=== PATIENT | male | born 1935 | race Caucasian/White ===

== ENCOUNTER → 2016-05-06 | Outpatient (CLI) | payer OTHER ==
[~2016-05-06] VITALS: Ht 175.3 cm; Wt 89.3 kg
[~2016-05-06] MED LIST: GLUCTAB PO; INSULIN HUMAN REGULAR 1,000 UNITS/10 ML VIAL SQ PRN; LACTATED RINGER'S 1000 ML IV SCH; LISI10TA3 PO; METH5TAB4 PO; METOPROLOL TARTRATE 25 MG TAB PO PRN; PRAV10TA PO; PROP20TA3 PO; PROPOFOL 200 MG/20 ML AMP IV ONE; PROT40TA PO; ROBA500T PO; SODIUM CHLORID 0.9% 500 ML IV SCH; TANDCAP PO
[2016-05-06 10:41] VITALS: BP 146/65; PULSE 52; RESP 20; TEMP 97.6; O2SAT 99
[2016-05-06 13:05] VITALS: TEMP 97.9
[2016-05-06 13:35] VITALS: BP 114/62; PULSE 55; RESP 16; O2SAT 94
== END ==
LOC: HEND 09:30
PROVIDERS: ATTEND Internal Medicine Gastroenterology
DX: I85.00 Esophageal varices without bleeding (principal); I86.4 Gastric varices; K31.9 Disease of stomach and duodenum, unspecified; K74.69 Other cirrhosis of liver; I10 Essential (primary) hypertension
CPT/HCPCS: 00740; 43244; J7120

== ENCOUNTER 2016-06-17 16:23 | Emergency (ER) | payer OTHER ==
[~2016-06-17] VITALS: Ht 175.3 cm; Wt 87.0 kg
[~2016-06-17 16:23] MED LIST changes: -INSULIN HUMAN REGULAR 1,000 UNITS/10 ML VIAL SQ PRN; -LACTATED RINGER'S 1000 ML IV SCH; -LISI10TA3 PO; -METOPROLOL TARTRATE 25 MG TAB PO PRN; -PROPOFOL 200 MG/20 ML AMP IV ONE; -ROBA500T PO; -SODIUM CHLORID 0.9% 500 ML IV SCH
[2016-06-17 16:25] VITALS: BP 139/76; PULSE 93; RESP 17; TEMP 98.1; O2SAT 97
[2016-06-17] MEDS ORDERED: ROBA500T PO (18:26)
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
[2016-08-13] MEDS ORDERED: LISI10TA3 PO (15:00)
== END 2016-06-17 18:40 | disposition home or self-care (01) ==
LOC: NEPB 16:23
DX: S39.012A Strain of muscle, fascia and tendon of lower back, initial encounter (principal); I10 Essential (primary) hypertension; E11.9 Type 2 diabetes mellitus without complications; V43.52XA Car driver injured in collision with other type car in traffic accident, initial encounter; Y93.9 Activity, unspecified; Y92.410 Unspecified street and highway as the place of occurrence of the external cause
CPT/HCPCS: 99282

== ENCOUNTER 2016-07-20 06:47 | Emergency (ER) | payer OTHER ==
[~2016-07-20] VITALS: Ht 175.3 cm; Wt 86.0 kg
[~2016-07-20 06:47] MED LIST changes: +ROBA500T PO
[2016-07-20 06:49] VITALS: BP 172/82; PULSE 91; RESP 16; TEMP 97.7; O2SAT 96
--- NOTE | 2016-07-20 07:48 | PD ---
HPI Chief Complaint: Abnormal Results Time Seen by Provider: 07:16 Travel History International Travel<30 days: No Contact w/Intl Traveler<30days: No Traveled to known affect area: No History of Present Illness HPI The patient 80 years old. He had routine blood work performed revealing a platelet count of 65,000. He was advised to come to the ER right away. He has a history of thrombocytopenia and states that 65 is about normal for him. In the past year or so he had an episode of esophageal varices treated at an outside hospital. He has follow-up with Dr. Miramontes of gastroenterology who has since performed endoscopy multiple times evidently performing a bandlike nature. He is due for follow-up appointment in 1 months. He's had no bleeding that he can appreciate or rash or skin change. He states he feels "great." He does complain about chronic left hand issues but otherwise has no complaints and is unsure exactly why he is to be here other than the fact that his [employer] on-call physician advised him to come right away. The physician who advised him to come is not familiar with the patient. PFSH Past Medical History Cancer: No Cardiovascular Problems: No Diabetes: Yes Patient Takes Glucophage: Yes Diminished Hearing: No Endocrine: Yes Gastrointestinal Disorders: Yes (ERODED ESOPHAGUS) Genitourinary: No Hepatitis: No Hiatal Hernia: No Hypertension: Yes (on med) Immune Disorder: No Medical other: Yes (esophageal varacies; NA cirrhosis; hx of dysplastic colon polyp) Musculoskeletal: Yes (ARTHRITIS) Neurologic: No Psychiatric: No Reproductive: No Respiratory: No Thyroid Disease: Yes (on med) Past Surgical History Abdominal Surgery: No AICD: No Cardiac Surgery: No Ear Surgery: No Endocrine Surgery: No Genitourinary Surgery: No Joint Replacement: Yes (BILATERAL KNEES) Oral Surgery: Yes (for dentures) Pacemaker: No Thoracic Surgery: No Other Surgery: Yes Social History Alcohol Use: No Tobacco Use: No (FORMER ) Substance Use: No Allergies-Medications (Allergen,Severity, Reaction): Coded Allergies: Ibuprofen (Verified Allergy, Severe, 06/17/16) cannot take due to liver Morphine (Unverified Allergy, Severe, Nausea/Vomiting, 06/17/16) Aleve (Verified Allergy, Unknown, 06/17/16) cant take due to liver Reported Meds & Prescriptions Reported Meds & Active Scripts Active Reported Tandem 162-115.2 mg (Ferrous Fumarate-Iron Polysacc) 1 Cap Cap 105 Mg PO DAILY Methimazole 5 Mg Tab 10 Mg PO 2XWEEK Pravastatin 10 Mg Tab 10 Mg PO DAILY Protonix (Pantoprazole Sodium) 40 Mg Tab 40 Mg PO BID Glucophage XR (Metformin HCl) 500 Mg Josemanuel 500 Mg PO BID Review of Systems Except as stated in HPI: all other systems reviewed are Neg Physical Exam Narrative GENERAL: 80-year-old male well-nourished well-developed no acute distress pleasant SKIN: Warm and dry. No petechiae about the lower extremities or rash otherwise. HEAD: Atraumatic. Normocephalic. EYES: Pupils equal and round. No scleral icterus. No injection or drainage. ENT: No nasal bleeding or discharge. Mucous membranes pink and moist. NECK: Trachea midline. No JVD. CARDIOVASCULAR: Regular rate and rhythm. RESPIRATORY: No accessory muscle use. Clear to auscultation. Breath sounds equal bilaterally. GASTROINTESTINAL: Abdomen soft, non-tender, nondistended. Hepatic and splenic margins not palpable. MUSCULOSKELETAL: Extremities without clubbing, cyanosis, or edema. No obvious deformities. NEUROLOGICAL: Awake and alert. No obvious cranial nerve deficits. Motor grossly within normal limits. Five out of 5 muscle strength in the arms and legs. Normal speech. PSYCHIATRIC: Appropriate mood and affect; insight and judgment normal. Data Data Last Documented VS Vital Signs Date Time Temp Pulse Resp B/P Pulse Ox O2 Delivery O2 Flow Rate FiO2 07/20/16 07:09 17 96 Room Air 07/20/16 06:49 97.7 91 172/82 Vital signs reviewed Orders Complete Blood Count With Diff (07/20/16 07:24) Labs Laboratory Tests Test 07/20/16 07:30 White Blood Count 6.3 TH/MM3 Red Blood Count 4.38 MIL/MM3 Hemoglobin 14.1 GM/DL Hematocrit 40.3 % Mean Corpuscular Volume 91.9 FL Mean Corpuscular Hemoglobin 32.2 PG Mean Corpuscular Hemoglobin 35.1 % Concent Red Cell Distribution Width 16.1 % Platelet Count 85 TH/MM3 Mean Platelet Volume 9.8 FL Neutrophils (%) (Auto) 60.3 % Lymphocytes (%) (Auto) 27.5 % Monocytes (%) (Auto) 7.6 % Eosinophils (%) (Auto) 3.9 % Basophils (%) (Auto) 0.7 % Neutrophils # (Auto) 3.8 TH/MM3 Lymphocytes # (Auto) 1.7 TH/MM3 Monocytes # (Auto) 0.5 TH/MM3 Eosinophils # (Auto) 0.2 TH/MM3 Basophils # (Auto) 0.0 TH/MM3 CBC Comment AUTO DIFF MDM Medical Decision Making Medical Screen Exam Complete: Yes Emergency Medical Condition: Yes Medical Record Reviewed: Yes Differential Diagnosis Thrombocytopenia, ITP, TTP Narrative Course Platelet count is 85,000 which is the norm for this patient. He is okay for discharge. Follow up with PMD on Friday. Diagnosis Primary Impression: Thrombocytopenia Referrals: Primary Care Physician 2 days Additional Instructions: You have a choice when it comes to health care, and we are glad that you chose [facility]. Hopefully, we have met your expectations on today's visit. You are welcome to return to [facility] at any time, as we are committed to meeting the health care needs of our community. Med/Other Pt SpecificInfo: No Change to Meds Disposition: 01 DISCHARGE HOME Condition: Finesse Segura MD Jul 20, 2016 07:48
[2016-07-20 07:51] LABS: AUTOMATED NEUTROPHIL # 3.8 TH/MM3 (1.8-7.7); BASOPHIL % 0.7 % (0.0-2.0); EOSINOPHIL # 0.2 TH/MM3 (0-0.4); EOSINOPHIL % 3.9 % (0.0-4.0); HEMATOCRIT 40.3 % (39.0-51.0); LYMPH % 27.5 % (9.0-44.0); LYMPHOCYTE # 1.7 TH/MM3 (1.0-4.8); MEAN CELL VOLUME 91.9 FL (80.0-100.0); MEAN CORPUSCULAR HEMOGLOBIN 32.2 PG (27.0-34.0); MEAN CORPUSCULAR HGB CONC 35.1 % (32.0-36.0); MONO % 7.6 % (0.0-8.0); NEUT % 60.3 % (16.0-70.0); PLATELET COUNT 85 TH/MM3 (150-450); RED BLOOD COUNT 4.38 MIL/MM3 (4.50-5.90); RED CELL DISTRIBUTION WIDTH 16.1 % (11.6-17.2); WHITE BLOOD COUNT 6.3 TH/MM3 (4.0-11.0)
[2016-07-20 07:53] LABS: HEMO FLAGS AUTO DIFF
[2016-07-20 08:23] LABS: PLATELET ESTIMATE SMEAR LOW (NORMAL); PLATELET MORPHOLOGY NORMAL (NORMAL); SCAN/DIFF AUTO DIFF CONFIRMED
[2016-08-13] MEDS ORDERED: LISI10TA3 PO (15:00)
== END 2016-07-20 08:42 | disposition home or self-care (01) ==
LOC: NEPC 06:47
DX: D69.6 Thrombocytopenia, unspecified (principal); E11.9 Type 2 diabetes mellitus without complications; I10 Essential (primary) hypertension; Z96.653 Presence of artificial knee joint, bilateral
CPT/HCPCS: 85025; 99283

== ENCOUNTER → 2016-08-14 | Outpatient (CLI) | payer OTHER ==
[~2016-08-14] VITALS: Ht 172.7 cm; Wt 87.0 kg
[~2016-08-14] MED LIST changes: +CHLORHEXIDINE GLUCONATE 2 % 1 PACK (2 CLOTHS) TOPICAL PRN; +INSULIN HUMAN REGULAR 1,000 UNITS/10 ML VIAL SQ PRN; +LACTATED RINGER'S 1000 ML IV PRN; +LISI10TA3 PO; +METOPROLOL TARTRATE 25 MG TAB PO PRN; +POVIDONE IODINE 5% (ANTISEPSIS KIT) 4 APPLICATIONS EACH NARE PRN; -PROP20TA3 PO; +PROPOFOL 200 MG/20 ML AMP IV ONE; -ROBA500T PO; +SODIUM CHLORID 0.9% 500 ML IV PRN
[2016-08-14 10:54] VITALS: BP 140/63; PULSE 70; RESP 20; TEMP 97.5; O2SAT 96
[2016-08-14 12:10] VITALS: TEMP 98
--- NOTE | 2016-08-14 12:16 | GIPROC ---
[facility] [address] [facility]. [facility], [address] EGD PROCEDURE REPORT EXAM DATE: 08/14/2016 PATIENT NAME: Robby Khan MR #: [id number] BIRTHDATE: 1935 ATTENDING: Lex Lee MD ORDER #: [id number] CERTIFIED PEDORTHOTIST: Yosi Lim Hogan, Darren, and Kendy Seo STATUS: outpatient INDICATIONS: The patient is a 80 yr old male here for an EGD due to therapeutic procedure and surveillance of esophageal varices PROCEDURE PERFORMED: EGD w/ band ligation of varices MEDICATIONS: None and Per Anesthesia. TOPICAL ANESTHETIC: none CONSENT: The patient understands the risks and benefits of the procedure and understands that these risks include, but are not limited to: sedation, allergic reaction, infection, perforation and/or bleeding. Alternative means of evaluation and treatment include, among others: physical exam, x-rays, and/or surgical intervention. The patient elects to proceed with this endoscopic procedure. medical equipment was checked for proper function. Hand hygiene and appropriate measures for infection prevention was taken. After the risks, benefits and alternatives of the procedure were thoroughly explained, Informed consent was verified, confirmed and timeout was successfully executed by the treatment team. The patient was anesthetized with topical anesthesia and the Pentax [id number] endoscope was introduced through the mouth and advanced to the second portion of the duodenum. Retroflexed views revealed varices The gastroscope was then slowly withdrawn and removed. ESOPHAGUS: There was a single medium sized varix in the distal esophagus. There was evidence of a louie spot sign and prior scarring. Band ligation x 1. STOMACH: There were small non bleeding gastric varices in the cardia. Mild portal hypertensive gastropathy was found. DUODENUM: The duodenal mucosa appeared normal. ADVERSE EVENTS: There were no complications. IMPRESSIONS: Retroflexed views revealed varices RECOMMENDATIONS: Soft diet today, advance tomorrow as tolerated. PATIENT CONDITION: stable DISPOSITION: Home REPEAT EXAM: Return 6 months EGD Lex Lee MD eSigned: Lex Lee MD 08/14/2016 12:15 PM cc: Jaime Hay M.D. PATIENT NAME: Robby Khan MR#: [id number]
[2016-08-14 12:30] VITALS: BP 122/62; PULSE 69; RESP 18; O2SAT 95
== END ==
LOC: HEND 09:42
PROVIDERS: ATTEND Internal Medicine Gastroenterology
DX: I85.10 Secondary esophageal varices without bleeding (principal); K74.60 Unspecified cirrhosis of liver; K76.6 Portal hypertension; K31.89 Other diseases of stomach and duodenum

== ENCOUNTER 2017-09-08 07:59 | Inpatient (IN) | payer OTHER, MEDICARE ==
[2017-09-08] VITALS (8 sets, daily range): BP systolic 134–168; BP diastolic 57–78; PULSE 90–95; RESP 16–20; TEMP 98.5–100.3; O2SAT 96–100
[~2017-09-08] VITALS: Ht 172.7 cm; Wt 100.0 kg
[~2017-09-08 07:59] MED LIST changes: -CHLORHEXIDINE GLUCONATE 2 % 1 PACK (2 CLOTHS) TOPICAL PRN; -GLUCTAB PO; -INSULIN HUMAN REGULAR 1,000 UNITS/10 ML VIAL SQ PRN; -LACTATED RINGER'S 1000 ML IV PRN; -METH5TAB4 PO; +METHI10; -METOPROLOL TARTRATE 25 MG TAB PO PRN; +PANT40TA3; -POVIDONE IODINE 5% (ANTISEPSIS KIT) 4 APPLICATIONS EACH NARE PRN; -PROPOFOL 200 MG/20 ML AMP IV ONE; -PROT40TA PO; -SODIUM CHLORID 0.9% 500 ML IV PRN
--- NOTE | 2017-09-08 08:26 | PD ---
HPI Chief Complaint: Edema Time Seen by Provider: 08:10 Travel History International Travel<30 days: No Contact w/Intl Traveler<30days: No Traveled to known affect area: No History of Present Illness HPI Patient presents to the emergency department with edema. 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 Chicas. States that the swelling to bilateral lower extremities and abdomen began 2 days ago. Never had these symptoms before. He does take Lasix 20 mg a day. He denies fever, diarrhea, but reports chills, nausea, post tussive phlegm, cough, abdominal pain, shortness of breath, bilateral lower extremity edema. He states normal urine output, he is passing flatus, and denies chest pain. He reports having constipation which is resolving. PFSH Past Medical History Cancer: No Cardiovascular Problems: No Diabetes: Yes (TYPE 2) Diminished Hearing: No Endocrine: Yes Gastrointestinal Disorders: Yes (ERODED ESOPHAGUS) Genitourinary: No Hepatitis: No Hiatal Hernia: No Hypertension: Yes (on med) Immune Disorder: No Musculoskeletal: Yes (ARTHRITIS) Neurologic: No Psychiatric: No Reproductive: No Respiratory: Yes Thyroid Disease: Yes Past Surgical History Abdominal Surgery: No AICD: No Cardiac Surgery: No Ear Surgery: No Endocrine Surgery: No Eye Surgery: Yes (CATARACTS REMOVED BILAT) Genitourinary Surgery: No Joint Replacement: Yes (BILATERAL KNEES) Oral Surgery: Yes (for dentures) Pacemaker: No Thoracic Surgery: No Other Surgery: Yes Social History Alcohol Use: No Tobacco Use: No (FORMER ) Substance Use: No Allergies-Medications (Allergen,Severity, Reaction): Coded Allergies: ibuprofen (Unverified Allergy, Severe, 01/28/17) cannot take due to liver morphine (Unverified Allergy, Severe, Nausea/Vomiting, 01/28/17) naproxen (Unverified Allergy, Unknown, 01/28/17) cant take due to liver Reported Meds & Prescriptions Reported Meds & Active Scripts Active Reported Lasix (Furosemide) 20 Mg Tab 20 Mg PO DAILY Lisinopril 10 Mg Tab 10 Mg PO DAILY Pravastatin 10 Mg Tab 10 Mg PO DAILY Methimazole 10 Mg Tab Pantoprazole (Pantoprazole Sodium) 40 Mg Tab Tandem 162-115.2 mg (Ferrous Fumarate-Iron Polysacc) 1 Cap Cap 105 Mg PO DAILY Review of Systems Except as stated in HPI: all other systems reviewed are Neg Physical Exam Narrative GENERAL: No acute distress. SKIN: Focused skin assessment warm/dry. HEAD: Atraumatic. Normocephalic. EYES: Pupils equal and round. No scleral icterus. No injection or drainage. ENT: No nasal bleeding or discharge. Mucous membranes pink and moist. NECK: Trachea midline. No JVD. CARDIOVASCULAR: Regular rate and rhythm. No murmur appreciated. RESPIRATORY: No accessory muscle use. Clear to auscultation. Breath sounds equal bilaterally. GASTROINTESTINAL: Abdomen soft, non-tender, distended. MUSCULOSKELETAL: No obvious deformities. No clubbing. No cyanosis. Bilateral lower extremity edema with erythema. NEUROLOGICAL: Awake and alert. No obvious cranial nerve deficits. Motor grossly within normal limits. Normal speech. PSYCHIATRIC: Appropriate mood and affect; insight and judgment normal. Data Data Last Documented VS Vital Signs Date Time Temp Pulse Resp B/P (MAP) Pulse Ox O2 Delivery O2 Flow Rate FiO2 09/08/17 09:07 149/68 (95) 09/08/17 09:07 97 09/08/17 08:02 98.5 95 16 Orders Orders Complete Blood Count With Diff (09/08/17 08:16) Comprehensive Metabolic Panel (09/08/17 08:16) Lipase (09/08/17 08:16) Prothrombin Time / Inr (Pt) (09/08/17 08:16) Act Partial Throm Time (Ptt) (09/08/17 08:16) Urinalysis - C+S If Indicated (09/08/17 08:16) Iv Access Insert/Monitor (09/08/17 08:16) Ecg Monitoring (09/08/17 08:16) Oximetry (09/08/17 08:16) Sodium Chloride 0.9% Flush (Ns Flush) (09/08/17 08:30) Chest, Single Ap (09/08/17 08:16) B-Type Natriuretic Peptide (09/08/17 08:16) Furosemide Inj (Lasix Inj) (09/08/17 08:30) Blood Culture (09/08/17 08:20) Lactic Acid (09/08/17 08:20) Ct Abd/Pel W Iv Contrast(Rout) (09/08/17 08:20) Iohexol 350 Inj (Omnipaque 350 Inj) (09/08/17 09:29) Potassium Chloride (Kcl) (09/08/17 11:45) Vancomycin Inj (Vancomycin Inj) (09/08/17 11:45) Piperacil-Tazo 3.375 Gm Premix (Zosyn 3. (09/08/17 11:45) Us Guided Abd Paracentesis (09/08/17 ) Peritoneal Cell Count + Diff (09/08/17 12:31) Total Protein Peritoneal Fluid (09/08/17 12:31) Albumin, Peritoneal Fluid (09/08/17 12:31) Fluid Culture And Gram Stain (09/08/17 12:31) Admit To Inpatient (09/08/17 ) Vital Signs (Adult) GRICELDA.Q4H (09/08/17 12:32) Activity Oob With Assistance (09/08/17 12:32) Inpatient Certification (09/08/17 ) Admit Order (Ed Use Only) (09/08/17 12:33) Labs Laboratory Tests Test 09/08/17 08:20 09/08/17 08:30 White Blood Count 6.0 TH/MM3 Red Blood Count 4.03 MIL/MM3 Hemoglobin 13.2 GM/DL Hematocrit 37.0 % Mean Corpuscular Volume 91.8 FL Mean Corpuscular Hemoglobin 32.7 PG Mean Corpuscular Hemoglobin Concent 35.6 % Red Cell Distribution Width 17.3 % Platelet Count 131 TH/MM3 Mean Platelet Volume 8.0 FL Neutrophils (%) (Auto) 64.6 % Lymphocytes (%) (Auto) 18.3 % Monocytes (%) (Auto) 13.8 % Eosinophils (%) (Auto) 2.5 % Basophils (%) (Auto) 0.8 % Neutrophils # (Auto) 3.9 TH/MM3 Lymphocytes # (Auto) 1.1 TH/MM3 Monocytes # (Auto) 0.8 TH/MM3 Eosinophils # (Auto) 0.2 TH/MM3 Basophils # (Auto) 0.0 TH/MM3 CBC Comment DIFF FINAL Differential Comment Prothrombin Time 14.9 SEC Prothromb Time International Ratio 1.5 RATIO Activated Partial Thromboplast Time 30.3 SEC Blood Urea Nitrogen 18 MG/DL Creatinine 1.42 MG/DL Random Glucose 104 MG/DL Total Protein 6.8 GM/DL Albumin 2.8 GM/DL Calcium Level 8.3 MG/DL Alkaline Phosphatase 107 U/L Aspartate Amino Transf (AST/SGOT) 69 U/L Alanine Aminotransferase (ALT/SGPT) 42 U/L Total Bilirubin 4.7 MG/DL Sodium Level 138 MEQ/L Potassium Level 3.4 MEQ/L Chloride Level 103 MEQ/L Carbon Dioxide Level 25.7 MEQ/L Anion Gap 9 MEQ/L Estimat Glomerular Filtration Rate 48 ML/MIN B-Type Natriuretic Peptide 79 PG/ML Lipase 344 U/L Lactic Acid Level 2.9 mmol/L MDM Medical Decision Making Medical Screen Exam Complete: Yes Emergency Medical Condition: Yes Interpretation(s) Labs: Potassium decreased, creatinine and lactate and T bili and AST increased, platelets decreased Last Impressions Abdomen/Pelvis CT 09/08/17 0820 Signed Impressions: CONCLUSION: 1. Cirrhotic appearing liver with splenomegaly and diffuse ascites consistent with cirrhosis and portal hypertension. The liver is considerably smaller in si ze and previous dated 09/27/2014. The overall size of the spleen is similar. 2. There are numerous calcified stones within the gallbladder. 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 Chest X-Ray 09/08/17 0816 Signed Impressions: CONCLUSION: 1. No acute cardiopulmonary disease. Differential Diagnosis Kidney disease, liver disease, cellulitis, sepsis, Narrative Course Patient with a known history of cirrhosis presents with new onset bilateral lower extremity edema and abdominal distention. Patient placed on the shelter monitor, IV access obtained, and labs/CT scan ordered. 1234: Patient has been admitted. Admit MD requesting paracentesis, which is been ordered. He will follow-up on the results. Diagnosis Primary Impression: Hypokalemia Additional Impressions: Cellulitis Qualified Codes: L03.119 - Cellulitis of unspecified part of limb Ascites Qualified Codes: R18.8 - Other ascites Admitting Information Admitting Physician Requests: Admit Condition: Stable Cortney Killian MD Sep 08, 2017 08:26
[2017-09-08] MEDS ORDERED: FUROSEMIDE 20 MG/2 ML VIAL IV PUSH ONE (08:30)
[2017-09-08 08:46] LABS: AUTOMATED NEUTROPHIL # 3.9 TH/MM3 (1.8-7.7); BASOPHIL % 0.8 % (0.0-2.0); EOSINOPHIL # 0.2 TH/MM3 (0-0.4); EOSINOPHIL % 2.5 % (0.0-4.0); HEMOGLOBIN 13.2 GM/DL (13.0-17.0); LYMPH % 18.3 % (9.0-44.0); LYMPHOCYTE # 1.1 TH/MM3 (1.0-4.8); MEAN CELL VOLUME 91.8 FL (80.0-100.0); MEAN CORPUSCULAR HEMOGLOBIN 32.7 PG (27.0-34.0); MEAN CORPUSCULAR HGB CONC 35.6 % (32.0-36.0); MONO % 13.8 % (0.0-8.0); MONOCYTE # 0.8 TH/MM3 (0-0.9); NEUT % 64.6 % (16.0-70.0); PLATELET COUNT 131 TH/MM3 (150-450); RED BLOOD COUNT 4.03 MIL/MM3 (4.50-5.90); RED CELL DISTRIBUTION WIDTH 17.3 % (11.6-17.2)
[2017-09-08 08:56] LABS: INTERNATIONAL NORMALIZED RATIO 1.5 RATIO; PROTHROMBIN TIME - PATIENT 14.9 SEC (9.8-11.6)
[2017-09-08 08:59] LABS: ALBUMIN 2.8 GM/DL (3.4-5.0); AST (GOT) 69 U/L (15-37); BICARBONATE 25.7 MEQ/L (21.0-32.0); BLOOD UREA NITROGEN 18 MG/DL (7-18); CALCIUM 8.3 MG/DL (8.5-10.1); CHLORIDE 103 MEQ/L (98-107); CREATININE 1.42 MG/DL (0.60-1.30); GLOMERULAR FILTRATION RATE 48 ML/MIN (>89); GLUCOSE,RANDOM 104 MG/DL (74-106); SODIUM (NA) 138 MEQ/L (136-145)
[2017-09-08 09:00] LABS: ALT (GPT) 42 U/L (12-78)
[2017-09-08 09:02] LABS: ALKALINE PHOSPHATASE 107 U/L (45-117); TOTAL BILIRUBIN ADULT 4.7 MG/DL (0.2-1.0); TOTAL PROTEIN 6.8 GM/DL (6.4-8.2)
--- NOTE | 2017-09-08 09:09 | RADRPT ---
EXAM DATE: 09/08/2017 8:59 AM EDT AGE/SEX: 81 years / Male INDICATIONS: Short of breath,swelling of legs and abdomen. CLINICAL DATA: This is the patient's initial encounter. Patient reports that signs and symptoms have been present for 1 day and indicates a pain score of 0/10. MEDICAL/SURGICAL HISTORY: Cirrhosis. Hypertension. None. COMPARISON: No prior exams available for comparison. FINDINGS: A single AP view of the chest demonstrates the lungs to be symmetrically aerated without evidence for focal pleural or parenchymal opacities.. The cardiomediastinal contours are unremarkable. Osseous structures are intact. CONCLUSION: 1. No acute cardiopulmonary disease. Electronically signed by: Win Quinones MD 09/08/2017 9:08 AM EDT
[2017-09-08] MEDS ORDERED: IOHEXOL 350 MG/ML 10 ML VIAL (for RAD DIAG) IVCONTRAST ONE (09:29)
[2017-09-08] MEDS: SODIUM CHLORIDE 0.9% FLUSH 10 ML FLUSH IV FLUSH PRN (09:47)
--- NOTE | 2017-09-08 09:59 | RADRPT ---
EXAM DATE: 09/08/2017 9:39 AM EDT AGE/SEX: 81 years / Male INDICATIONS: Diffuse abdomen pain today. CLINICAL DATA: This is the patient's initial encounter. Patient reports that signs and symptoms have been present for 1 day and indicates a pain score of 7/10. MEDICAL/SURGICAL HISTORY: Cirrhosis. Diabetes. None. ORAL CONTRAST: No oral contrast ingested. RADIATION DOSE: 15.21 CTDI (mGy) ; Patient body habitus COMPARISON: POI, CT ABDOMEN AND PELVIS W AND W/O CONTRAST, 09/27/2014. . TECHNIQUE: Multiple contiguous axial images were obtained through the abdomen and pelvis following b olus infusion of 90 ml Omnipaque 350 (iohexol) nonionic water-soluble contrast as a single exam dos e. No oral contrast ingested. Using automated exposure control and adjustment of the mA and/or kV ac cording to patient size, the radiation dose was kept as low as reasonably achievable to obtain optima l diagnostic quality images. FINDINGS: The limited portion of lung base visualized is clear. Imaging through the abdomen demonstrates a small, cirrhotic appearing liver with splenomegaly and dif fuse ascites most consistent with cirrhosis. The pancreas, adrenal glands and kidneys demonstrate some scattered punctate simple cysts within the kidneys but are otherwise unremarkable. There are multiple calcified stones within the gallbladder. There is some calcification within the ga llbladder wall consistent with a porcelain gallbladder. There is no retroperitoneal adenopathy. The visualized loops of small and large bowel are unremarkabl e. There is diffuse ascites within the pelvis. No iliac or inguinal adenopathy is seen. The visualized bony structures demonstrate advanced degenerative changes within the spine but are oth erwise intact. CONCLUSION: 1. Cirrhotic appearing liver with splenomegaly and diffuse ascites consistent with cirrhosis and por aashish hypertension. The liver is considerably smaller in size and previous dated 09/27/2014. The overall size of the spleen is similar. 2. There are numerous calcified stones within the gallbladder. 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 Electronically signed by: Finesse Disla MD 09/08/2017 9:57 AM EDT
[2017-09-08] MEDS ORDERED: FURO1TAB62 PO (10:39)
[2017-09-08] MEDS ORDERED: PIPERACIL-TAZO 3.375 GM PREMIX 50 ML IV ONE (11:45)
[2017-09-08] MEDS ORDERED: VANCOMYCIN INJ 1,000 MG in SODIUM CHLOR 0.9% 250 ML INJ 250 ML IV ONE (11:45)
[2017-09-08] MEDS ORDERED: POTASSIUM CHLORIDE 20 MEQ CONTROLLED RELEASE TAB PO ONE (11:45)
--- NOTE | 2017-09-08 13:04 | HHI.HP ---
HPI Service [facility] Primary Care Physician Non-Staff Admission Diagnosis cirrhosis, cellulitis, ascites Diagnoses: Chief Complaint: cirrhosis Travel History International Travel<30 Days: No Contact w/Intl Traveler <30 Da: No Traveled to Known Affected Are: No History of Present Illness 81 y/o WM being admitted for sepsis and ascites. Patient was in his usual state of health until about 2-3 days ago when he says his abdomen and his lower extremities began rapidly swelling up. Says he noted he had abdominal discomfort but no abdominal pain. Says his bowel movements have been actually normalizing with normal consistency, was recently constipated. Says his feet started hurting badly when they get swollen, pain would worsen with ambulation and bearing weight. Also noted that his legs got red and swollen the last 2-3 days. Patient says that he has had some chronic level of edema in his lower extremities as well as his abdominal distention. Says he was prescribed to start taking 8-9 days ago, but could not get to see his GI doctor before the 2 days from now. Called his PCP, was recommended come to emergency department. Denies any fevers, reports some subjective chills. Patient denies ever having a paracentesis done in the past. 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 Review of Systems Except as stated in HPI: all other systems reviewed are Neg Past Family Social History Past Medical History BOYKIN hyperthyroidism Past Surgical History Bilateral TKAs Allergies: Coded Allergies: ibuprofen (Unverified Allergy, Severe, 01/28/17) cannot take due to liver morphine (Unverified Allergy, Severe, Nausea/Vomiting, 01/28/17) naproxen (Unverified Allergy, Unknown, 01/28/17) cant take due to liver Family History Diabetes in the family Social History Stop smoking about 16 years ago. Stopped drinking heavily over 40 years ago ( used to be in the [employer]). Lives with his . Physical Exam Vital Signs Vital Signs Date Time Temp Pulse Resp B/P (MAP) Pulse Ox O2 Delivery O2 Flow Rate FiO2 09/08/17 09:07 149/68 (95) 09/08/17 09:07 97 6/18/18 08:02 98.5 95 16 97 Physical Exam VS: afebrile GENERAL: elderly male, NAD SKIN: Warm and dry. EYES: No scleral icterus. No injection or drainage. ENT: No nasal bleeding or discharge. CARDIOVASCULAR: 2/6 ejection murmur, 3+ mod-severe BL LE edema RESPIRATORY: No accessory muscle use. Clear to auscultation. Breath sounds equal bilaterally. GASTROINTESTINAL: Abdomen taut but depressible, no eric ascitic wave noted, nontender Extremities: No clubbing, cyanosis, or edema. No obvious deformities. MUSCULOSKELETAL: adequate muscle bulk and tone for age and habitus NEUROLOGICAL: Awake and alert. No obvious cranial nerve deficits. No facial droop nor slurred speech noted. PSYCHIATRIC: Appropriate mood and affect; insight and judgment normal. Laboratory Laboratory Tests Test 09/08/17 08:20 09/08/17 08:30 White Blood Count 6.0 Red Blood Count 4.03 Hemoglobin 13.2 Hematocrit 37.0 Mean Corpuscular Volume 91.8 Mean Corpuscular Hemoglobin 32.7 Mean Corpuscular Hemoglobin Concent 35.6 Red Cell Distribution Width 17.3 Platelet Count 131 Mean Platelet Volume 8.0 Neutrophils (%) (Auto) 64.6 Lymphocytes (%) (Auto) 18.3 Monocytes (%) (Auto) 13.8 Eosinophils (%) (Auto) 2.5 Basophils (%) (Auto) 0.8 Neutrophils # (Auto) 3.9 Lymphocytes # (Auto) 1.1 Monocytes # (Auto) 0.8 Eosinophils # (Auto) 0.2 Basophils # (Auto) 0.0 CBC Comment DIFF FINAL Differential Comment Prothrombin Time 14.9 Prothromb Time International Ratio 1.5 Activated Partial Thromboplast Time 30.3 Blood Urea Nitrogen 18 Creatinine 1.42 Random Glucose 104 Total Protein 6.8 Albumin 2.8 Calcium Level 8.3 Alkaline Phosphatase 107 Aspartate Amino Transf (AST/SGOT) 69 Alanine Aminotransferase (ALT/SGPT) 42 Total Bilirubin 4.7 Sodium Level 138 Potassium Level 3.4 Chloride Level 103 Carbon Dioxide Level 25.7 Anion Gap 9 Estimat Glomerular Filtration Rate 48 B-Type Natriuretic Peptide 79 Lipase 344 Lactic Acid Level 2.9 Date/Time Source Procedure Growth Status 09/08/17 08:20 Blood Peripheral Aerobic Blood Culture Pending Received 09/08/17 08:20 Blood Peripheral Anaerobic Blood Culture Pending Received Result Diagram: 09/08/1781909/08/17819 Imaging Last Impressions Abdomen/Pelvis CT 09/08/17819 Signed Impressions: CONCLUSION: 1. Cirrhotic appearing liver with splenomegaly and diffuse ascites consistent with cirrhosis and portal hypertension. The liver is considerably smaller in si ze and previous dated 09/27/2014. The overall size of the spleen is similar. 2. There are numerous calcified stones within the gallbladder. 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 Chest X-Ray 09/08/17815 Signed Impressions: CONCLUSION: 1. No acute cardiopulmonary disease. Caprini VTE Risk Assessment Caprini VTE Risk Assessment: Mod/High Risk (score >= 2) Caprini Risk Assessment Model Point Value = 1 Point Value = 2 Point Value = 3 Point Value = 5 Age 41-60 Minor surgery BMI > 25 kg/m2 Swollen legs Varicose veins or History of unexplained or recurrent spontaneous Oral contraceptives or hormone replacement Sepsis (< 1 month) Serious lung disease, including pneumonia (< 1 month) Abnormal pulmonary function Acute myocardial infarction Congestive heart failure (< 1 month) History of inflammatory bowel disease Medical patient at bed rest Age 61-74 Arthroscopic surgery Major open surgery (> 45 min) Laparoscopic surgery (> 45 min) Malignancy Confined to bed (> 72 hours) Immobilizing plaster cast Central venous access Age >= 75 History of VTE Family history of VTE Factor V Leiden Prothrombin [id number] Lupus anticoagulant Anticardiolipin antibodies Elevated serum homocysteine Heparin-induced thrombocytopenia Other congenital or acquired thrombophilia Stroke (< 1 month) Elective arthroplasty Hip, pelvis, or leg fracture Acute spinal cord injury (< 1 month) Prophylaxis Regimen Total Risk Factor Score Risk Level Prophylaxis Regimen 0-1 Low Early ambulation 2 Moderate Order ONE of the following: *Sequential Compression Device (SCD) *Heparin 5000 units SQ BID 3-4 Higher Order ONE of the following medications: *Heparin 5000 units SQ TID *Enoxaparin/Lovenox 40 mg SQ daily (WT < 150 kg, CrCl > 30 mL/min) *Enoxaparin/Lovenox 30 mg SQ daily (WT < 150 kg, CrCl > 10-29 mL/min) *Enoxaparin/Lovenox 30 mg SQ BID (WT < 150 kg, CrCl > 30 mL/min) AND/OR *Sequential Compression Device (SCD) 5 or more Highest Order ONE of the following medications: *Heparin 5000 units SQ TID (Preferred with Epidurals) *Enoxaparin/Lovenox 40 mg SQ daily (WT < 150 kg, CrCl > 30 mL/min) *Enoxaparin/Lovenox 30 mg SQ daily (WT < 150 kg, CrCl > 10-29 mL/min) *Enoxaparin/Lovenox 30 mg SQ BID (WT < 150 kg, CrCl > 30 mL/min) AND *Sequential Compression Device (SCD) Assessment and Plan Assessment and Plan 81-year-old white male being admitted for cellulitis and ascites Cellulitis -Likely predispose to infection with lower extremity edema and compromised liver function; continue vancomycin and Zosyn as started by ED -Blood cultures pending Ascites -Most likely secondary to Boykin, paracentesis ordered by ED, Fluid studies ordered. do not suspect SBP. Renal function is mildly impaired but not severe enough to cause this ascites. Will obtain echocardiogram. Lower extremity edema -Most likely from fluid overload from BOYKIN as above, will start intake and output measures as well as Lasix 40 mg twice daily -BMP in AM lactic acidosis - likely from dehydration or third spacing, administer albumin MARIAMA - likely from dehydration or third spacing, administer albumin, BMP in AM hepatic insufficiency - INR 1.5, likely 2/2 BOYKIN, f/u with GI outpatient Continue home statin. Physician Certification 2 Midnight Certification Type: Admission for Inpatient Services Order for Inpatient Services The services are ordered in accordance with Medicare regulations or non- Medicare payer requirements, as applicable. In the case of services not specified as inpatient-only, they are appropriately provided as inpatient services in accordance with the 2-midnight benchmark. Estimated LOS (days): 2 2 days is the estimated time the patient will need to remain in the hospital, assuming treatment plan goals are met and no additional complications. Post-Hospital Plan: Home Saúl Mccord MD Sep 08, 2017 13:04
[2017-09-08] MEDS ORDERED: POTASSIUM CHLORIDE 10 MEQ CONTROLLED RELEASE TAB PO ONE (13:15)
[2017-09-08] MEDS: PRAVASTATIN SOD 10 MG TAB PO SCH (13:29)
[2017-09-08] MEDS ORDERED: ALBUMIN 25% INJ 50 ML IV ONE ×2 (14:00→18:00)
[2017-09-08] MEDS ORDERED: LIDOCAINE HCL 1% PF 30 ML VIAL ONE (14:57)
[2017-09-08] MEDS ORDERED: Vancomycin Consult Pharmacy 1 EA OTHER SCH (15:15)
[2017-09-08 16:23] LABS: TOTAL PROTEIN,PERITONEAL FLUID 1.3 GM/DL
[2017-09-08] MEDS: FUROSEMIDE 40 MG/4 ML VIAL IV PUSH SCH (17:04)
[2017-09-08 17:05] LABS: PERITONEAL HISTIOCYTES 23 %; PERITONEAL LYMPHS 56 %; PERITONEAL MESOTHELIAL 12 %; PERITONEAL MONOS 8 %; PERITONEAL POLYS(SEGS) 1 %; PERITONEAL RBC 423 /MM3 (0-0)
[2017-09-08] MEDS: PIPERACIL-TAZO 3.375 GM PREMIX 50 ML IV SCH (21:02)
[2017-09-09 00:51] VITALS: BP 140/72; PULSE 92; RESP 19; TEMP 99.2; O2SAT 100
[2017-09-09 04:56] VITALS: BP 133/62; PULSE 84; RESP 20; TEMP 98.1; O2SAT 96
[2017-09-09] MEDS: PIPERACIL-TAZO 3.375 GM PREMIX 50 ML IV SCH (05:15)
[2017-09-09] MEDS: VANCOMYCIN INJ 1,500 MG in SODIUM CHLORID 0.9% 500 ML INJ 500 ML IV SCH (05:15)
[2017-09-09 08:05] VITALS: BP 142/66; PULSE 78; RESP 18; TEMP 98; O2SAT 97
[2017-09-09] MEDS: PRAVASTATIN SOD 10 MG TAB PO SCH (08:43)
[2017-09-09] MEDS: FUROSEMIDE 40 MG/4 ML VIAL IV PUSH SCH (08:43)
[2017-09-09] MEDS: SODIUM CHLORIDE 0.9% FLUSH 10 ML FLUSH IV FLUSH PRN ×2 (08:44→21:05)
[2017-09-09 09:56] LABS: BICARBONATE 25.5 MEQ/L (21.0-32.0); CALCIUM 8.4 MG/DL (8.5-10.1); CREATININE 1.33 MG/DL (0.60-1.30)
[2017-09-09] MEDS ORDERED: POTASSIUM CHLORIDE 20 MEQ CONTROLLED RELEASE TAB PO ONE (10:30)
--- NOTE | 2017-09-09 10:31 | HHI.PR ---
Subjective Remarks Follow-up ascites s/p paracentesis/cirrhosis/venous stasis/cellulitis September 09, 2017-patient seen and examined, reports some improvement of abdominal swelling however continued to have lower extremity swelling with significant erythema. Afebrile. Objective Vitals Vital Signs Date Time Temp Pulse Resp B/P (MAP) Pulse Ox O2 Delivery O2 Flow Rate FiO2 09/09/17 08:05 98.0 78 18 142/66 (91) 97 09/09/17 04:56 98.1 84 20 133/62 (85) 96 09/09/17 00:51 99.2 92 19 140/72 (94) 100 09/08/17 20:53 98.8 93 18 144/66 (92) 98 09/08/17 16:17 98.7 90 20 139/62 (87) 99 09/08/17 15:45 168/78 (108) 09/08/17 15:29 91 168/71 (103) 100 Room Air 09/08/17 15:21 98.8 94 16 134/57 (82) 96 09/08/17 14:08 100.3 90 16 151/72 (98) 96 I/O 09/08/17 09/08/17 09/08/17 09/09/17 09/09/17 09/09/17 07:00 15:00 23:00 07:00 15:00 23:00 # Voids 5 # Bowel Movements 1 Result Diagram: 09/08/17 0820 09/09/17 0746 Imaging Last Impressions Abdomen/Pelvis CT 09/08/17 08 Signed Impressions: CONCLUSION: 1. Cirrhotic appearing liver with splenomegaly and diffuse ascites consistent with cirrhosis and portal hypertension. The liver is considerably smaller in si ze and previous dated 09/27/2014. The overall size of the spleen is similar. 2. There are numerous calcified stones within the gallbladder. 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 Chest X-Ray 09/08/17 0816 Signed Impressions: CONCLUSION: 1. No acute cardiopulmonary disease. Objective Remarks GENERAL: NAD SKIN: Warm and dry. HEAD: Normocephalic. EYES: No scleral icterus. No injection or drainage. NECK: Supple, trachea midline. No JVD or lymphadenopathy. CARDIOVASCULAR: Regular rate and rhythm without murmurs, gallops, or rubs. RESPIRATORY: Breath sounds equal bilaterally. No accessory muscle use. GASTROINTESTINAL: Abdomen soft, non-tender, mildly distended. MUSCULOSKELETAL: No cyanosis; +1 pitting edema BLE with surrounding erythema. BACK: Nontender without obvious deformity. No CVA tenderness. A/P Problem List: (1) Venous stasis dermatitis of both lower extremities ICD Code: I87.2 - Venous insufficiency (chronic) (peripheral) (2) Venous stasis ICD Code: I87.8 - Other specified disorders of veins (3) Liver cirrhosis secondary to BOYKIN ICD Code: K75.81 - Nonalcoholic steatohepatitis (BOYKIN); K74.60 - Unspecified cirrhosis of liver (4) MARIAMA (acute kidney injury) ICD Code: N17.9 - Acute kidney failure, unspecified (5) Ascites ICD Code: R18.8 - Other ascites Status: Acute (6) Cellulitis ICD Code: L03.90 - Cellulitis, unspecified Status: Acute Assessment and Plan 81-year-old man with Ascites Status post therapeutic paracentesis Continue with Lasix and add Aldactone, Xifaxan Cirrhosis of liver secondary to Boykin Continue treatment as an above Venous stasis dermatitis of both lower extremities versus cellulitis Currently on vancomycin and Zosyn, will discontinue Zosyn Change Lasix to 20 mg IV daily Acute kidney injury Continue to monitor BUN and creatinine Avoid all nephrotoxic drug Lactic acidosis Secondary to acute renal injury, dehydration and less likely due to infectious processes Lactic acid pending this a.m. Hypokalemia Replace electrolyte with 60 mEq 1 now and monitor Hypertension Hold lisinopril and start instead Inderal 20 mg every 12 hours Hyperthyroidism Resume Methimazole DVT prophylaxis: Mechanical anti prophylaxis is contraindicated Problem Qualifiers (1) Ascites: Qualified Codes: R18.8 - Other ascites (2) Cellulitis: Qualified Codes: L03.119 - Cellulitis of unspecified part of limb Tomer Snowden MD Sep 09, 2017 10:31
[2017-09-09 11:57] VITALS: BP 103/70; PULSE 85; RESP 18; TEMP 97.7; O2SAT 99
[2017-09-09 15:53] VITALS: BP 142/63; PULSE 85; RESP 18; TEMP 98; O2SAT 98
[2017-09-09 20:47] VITALS: BP 130/63; PULSE 84; RESP 18; TEMP 98.2; O2SAT 97
[2017-09-09] MEDS: PROPRANOLOL HCL 20 MG TAB PO SCH (21:05)
[2017-09-10 00:33] VITALS: BP 123/60; PULSE 67; RESP 18; TEMP 98.2; O2SAT 96
[2017-09-10] MEDS: VANCOMYCIN INJ 1,500 MG in SODIUM CHLORID 0.9% 500 ML INJ 500 ML IV SCH (04:59)
[2017-09-10 05:50] VITALS: BP 127/60; PULSE 65; RESP 18; TEMP 97.8; O2SAT 97
--- NOTE | 2017-09-10 07:40 | RADRPT ---
EXAM DATE: 09/08/2017 3:17 PM EDT AGE/SEX: 81 years / Male INDICATIONS: Ascites. CLINICAL DATA: This is the patient's initial encounter. Patient reports that signs and symptoms have been present for 1 day and indicates a pain score of 0/10. MEDICAL/SURGICAL HISTORY: . Diabetic. Hypertension. . Cataracts. Bilateral knee replacement. COMPARISON: No prior exams available for comparison. FLUID: Total volume of 6000 cc of clear, yellow fluid was removed. Fluid was sent to lab for ordered studies . . . TECHNIQUE: Ultrasound guidance for abdominal paracentesis. Paracentesis. The risks, benefits, and alternatives to ultrasound guided paracentesis were explained to the patient in detail including the risk of bleeding and infection. Written and verbal informed consent was obt ained. With the patient on the ultrasound table, ultrasound imaging was used to select the most appropriate approach for paracentesis. Overlying skin was prepped and draped in the usual sterile fashion and wi th a local anesthetic, a dermatotomy was made with an 11 blade scalpel. A 6 Italian Saf-T -centesis c atheter was introduced into the peritoneal cavity and fluid was collected. Post procedure scanning reveals no hematoma or other complication. The patient tolerated the procedu re well and left the ultrasound suite in stable condition. CONCLUSION: 1. Uncomplicated ultrasound-guided paracentesis. Electronically signed by: Jesus Disla MD 09/10/2017 7:39 AM EDT
[2017-09-10 07:58] LABS: BICARBONATE 27.9 MEQ/L (21.0-32.0); CALCIUM 8.1 MG/DL (8.5-10.1); CREATININE 1.13 MG/DL (0.60-1.30)
[2017-09-10 08:00] VITALS: BP 126/60; PULSE 61; RESP 18; TEMP 98; O2SAT 98
[2017-09-10] MEDS ORDERED: FUROSEMIDE 20 MG/2 ML VIAL IV PUSH SCH (09:00)
[2017-09-10] MEDS: PROPRANOLOL HCL 20 MG TAB PO SCH (09:01)
[2017-09-10] MEDS: PRAVASTATIN SOD 10 MG TAB PO SCH (09:01)
[2017-09-10] MEDS: METHIMAZOLE 10 MG TAB PO SCH (09:01)
--- NOTE | 2017-09-10 11:42 | HHI.PR ---
Subjective Remarks Follow-up ascites s/p paracentesis/cirrhosis/venous stasis/cellulitis September 09, 2017-patient seen and examined, reports some improvement of abdominal swelling however continued to have lower extremity swelling with significant erythema. Afebrile. September 10, 2017-patient seen and examined, reports some improvement of lower extremity swelling. Denies any febrile episode. No chest pain or shortness of breath. One positive blood culture out of 4. by the bedside Objective Vitals Vital Signs Date Time Temp Pulse Resp B/P (MAP) Pulse Ox O2 Delivery O2 Flow Rate FiO2 09/10/17 08:00 98.0 61 18 126/60 (82) 98 09/10/17 05:50 97.8 65 18 127/60 (82) 97 09/10/17 00:33 98.2 67 18 123/60 (81) 96 09/09/17 20:47 98.2 84 18 130/63 (85) 97 09/09/17 15:53 98.0 85 18 142/63 (89) 98 09/09/17 11:57 97.7 85 18 103/70 (81) 99 I/O 09/09/17 09/09/17 09/09/17 09/10/17 09/10/17 09/10/17 07:00 15:00 23:00 07:00 15:00 23:00 # Voids 5 # Bowel Movements 2 Result Diagram: 09/08/17 0820 09/10/17 0645 Imaging Last Impressions Abdomen/Pelvis CT 09/08/17 0820 Signed Impressions: CONCLUSION: 1. Cirrhotic appearing liver with splenomegaly and diffuse ascites consistent with cirrhosis and portal hypertension. The liver is considerably smaller in si ze and previous dated 09/27/2014. The overall size of the spleen is similar. 2. There are numerous calcified stones within the gallbladder. 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 Chest X-Ray 09/08/17 0816 Signed Impressions: CONCLUSION: 1. No acute cardiopulmonary disease. Cyst Biopsy Asp-Paracentesis US 09/08/17 0000 Signed Impressions: CONCLUSION: 1. Uncomplicated ultrasound-guided paracentesis. Objective Remarks GENERAL: NAD SKIN: Warm and dry. HEAD: Normocephalic. EYES: No scleral icterus. No injection or drainage. NECK: Supple, trachea midline. No JVD or lymphadenopathy. CARDIOVASCULAR: Regular rate and rhythm without murmurs, gallops, or rubs. RESPIRATORY: Breath sounds equal bilaterally. No accessory muscle use. GASTROINTESTINAL: Abdomen soft, non-tender, mildly distended. MUSCULOSKELETAL: No cyanosis; +1 pitting edema BLE with surrounding erythema. BACK: Nontender without obvious deformity. No CVA tenderness. 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 +1#4 blood culture Repeat blood culture Consult infectious disease specialist Continue vancomycin Ascites Status post therapeutic paracentesis Continue with Lasix and add Aldactone, Xifaxan Cirrhosis of liver secondary to Boykin Continue treatment as an above Venous stasis dermatitis of both lower extremities versus cellulitis Currently on vancomycin and status post Zosyn Change Lasix to 20 mg IV Q12h Acute kidney injury-resolved Continue to monitor BUN and creatinine Avoid all nephrotoxic drug Lactic acidosis Secondary to acute renal injury, dehydration and less likely due to infectious processes Monitor lactic acid Hypokalemia Resolved status post replacement Hypertension Hold lisinopril and continue Inderal 20 mg every 12 hours Hyperthyroidism Resume Methimazole DVT prophylaxis: Mechanical anti prophylaxis is contraindicated Problem Qualifiers (1) Ascites: Qualified Codes: R18.8 - Other ascites (2) Cellulitis: Qualified Codes: L03.119 - Cellulitis of unspecified part of limb Tomer Snowden MD Sep 10, 2017 11:42
[2017-09-10 12:00] VITALS: BP 120/59; PULSE 61; RESP 18; TEMP 98; O2SAT 98
--- NOTE | 2017-09-10 14:54 | MB ---
cc: Michael Heath MD DATE: 09/10/2017 REQUESTING PHYSICIAN: Tomer Snowden MD REASON FOR CONSULTATION: An 81-year-old man with lower extremity cellulitis and now with bacteremia. Please evaluate and advise for therapy. HISTORY OF PRESENT ILLNESS: This is an 81-year-old white male who presented to the emergency department on 09/08 with edema of the lower extremities. The patient has history of BOYKIN. He states that he developed bilateral lower extremity swelling and also abdomen swelling 2 days before presenting to emergency department. He reports that he had been taking Lasix previously. He said he took Lasix for a month recently because of swelling of his legs. The patient was evaluated in the emergency department and he was noted to have erythema of the legs. Blood cultures were obtained, and he was started on IV antibiotics. The blood culture has 1 bottle positive with bacillus species. The patient underwent paracentesis. He was noted to have diffuse ascites on CT scan of the abdomen. The peritoneal fluid has no growth in 48 hours. Peritoneal white blood cell count was 268 and differential showed 56% lymphocytes, 1% neutrophils and histiocytes. Currently, patient is sitting upright in the bedside chair, eating. He denies chills, but states that he always feels cold. Temperature of 100.3 on 09/08. The temperature has been normal after that. The patient is awake and alert. He denies abdominal pain. He has no other symptoms or complaints. He reports that his breathing is normal. PAST MEDICAL HISTORY: GI bleed approximately 2 years ago. Nonalcoholic steatohepatitis, hyperthyroidism, bilateral TKAs in the . ALLERGIES: IBUPROFEN, NAPROXEN, MORPHINE. MEDICATIONS: Vancomycin, rifaximin, Lasix, Tapazole, Inderal, Pravachol. SOCIAL HISTORY: The patient quit drinking alcohol 40 years ago. He quit using tobacco 16 years ago. No illicit drugs. He is retired. FAMILY HISTORY: Noncontributory. REVIEW OF SYSTEMS: Negative on a 10-point review except for as mentioned in history of present illness. PHYSICAL EXAMINATION: GENERAL: This is a well-developed, slender male who is in no acute distress. VITAL SIGNS: Temperature 98.0, BP 120/ , respirations 18, heart rate 61. HEENT: The head is atraumatic. Extraocular movements grossly intact. Pupils reactive to light. No icterus. Oropharynx, moist mucosa without lesions. NECK: Supple. No adenopathy or swelling. LUNGS: Clear breath sounds, bilateral. HEART: Regular S1, S2. No audible murmurs. ABDOMEN: Distended, obese, diminished bowel sounds. Nontender. RECTAL: Not performed. EXTREMITIES: 2+ edema of both legs. The right tibia has erythema, and there is erythema at the dorsum of both feet beyond the base of the toes. There is also mild erythema at the distal left tibia. The right tibia is warm to touch. SKIN: No diffuse rash. NEUROLOGIC: Nonfocal. PSYCHIATRIC: The patient is calm, pleasant and cooperative. LABORATORY FINDINGS: Creatinine 1.13, BUN 19, sodium 142. Estimated GFR of 62. WBC 6.0, platelet count 131, 64% neutrophils, 18% lymphocytes, 13% monocytes. IMPRESSION: 1. Positive blood culture, 1 bottle with bacillus species, which is likely contamination. The patient without clear evidence suggesting sepsis. 2. Cellulitis involving both lower extremities, but more pronounced on the right lower extremity. 3. Lower extremity edema in patient with cirrhosis. Also, patient has ascites. RECOMMENDATIONS: 1. Continue vancomycin. 2. Monitor response of the legs. 3. Monitor the blood culture, which was repeated on 09/10. 4. Follow his clinical response to antibiotic treatment. Thank you for this consultation. Further recommendations will depend on the patient's hospital progress and response to antibiotic treatment. MD LOAN Rivas/ARIANE , 02:26 PM , 02:53 PM
[2017-09-10 16:00] VITALS: BP 120/57; PULSE 61; RESP 18; TEMP 97.9; O2SAT 97
[2017-09-10] MEDS: FUROSEMIDE 20 MG/2 ML VIAL IV PUSH SCH (17:27)
[2017-09-10 20:41] VITALS: BP 148/66; PULSE 63; RESP 18; TEMP 98.1; O2SAT 99
[2017-09-11] MEDS: RIFAXIMIN 550 MG TAB PO SCH ×3 (00:13→23:22)
[2017-09-11] MEDS: PROPRANOLOL HCL 20 MG TAB PO SCH ×3 (00:14→21:00)
[2017-09-11 00:36] VITALS: BP 133/57; PULSE 64; RESP 20; TEMP 97.3; O2SAT 96
[2017-09-11 05:31] VITALS: BP 112/59; PULSE 58; RESP 18; TEMP 97.8; O2SAT 96
[2017-09-11] MEDS ORDERED: PHARMACY ORDERED LAB ONE (05:45)
[2017-09-11] MEDS: VANCOMYCIN INJ 1,500 MG in SODIUM CHLORID 0.9% 500 ML INJ 500 ML IV SCH (05:46)
[2017-09-11 08:00] VITALS: BP 139/58; PULSE 58; RESP 17; TEMP 97.5; O2SAT 96
[2017-09-11] MEDS: PRAVASTATIN SOD 10 MG TAB PO SCH (09:30)
[2017-09-11] MEDS: FUROSEMIDE 20 MG/2 ML VIAL IV PUSH SCH (09:30)
[2017-09-11] MEDS: METHIMAZOLE 10 MG TAB PO SCH (09:30)
--- NOTE | 2017-09-11 11:20 | HHI.PR ---
Subjective Remarks Follow-up ascites s/p paracentesis/cirrhosis/venous stasis/cellulitis September 09, 2017-patient seen and examined, reports some improvement of abdominal swelling however continued to have lower extremity swelling with significant erythema. Afebrile. September 10, 2017-patient seen and examined, reports some improvement of lower extremity swelling. Denies any febrile episode. No chest pain or shortness of breath. One positive blood culture out of 4. by the bedside September 11, 2017-patient seen and examined, improving lower extremity cellulitis however patient still with bilateral lower extremity edema. Denies any shortness of breath or abdominal pain Objective Vitals Vital Signs Date Time Temp Pulse Resp B/P (MAP) Pulse Ox O2 Delivery O2 Flow Rate FiO2 09/11/17 08:00 97.5 58 17 139/58 (85) 96 09/11/17 05:31 97.8 58 18 112/59 (76) 96 09/11/17 00:36 97.3 64 20 133/57 (82) 96 09/10/17 20:41 98.1 63 18 148/66 (93) 99 09/10/17 16:00 97.9 61 18 120/57 (78) 97 09/10/17 12:00 98.0 61 18 120/59 (79) 98 I/O 09/10/17 09/10/17 09/10/17 09/11/17 09/11/17 09/11/17 07:00 15:00 23:00 07:00 15:00 23:00 # Voids 4 # Bowel Movements 5 Result Diagram: 09/08/17 0820 09/10/17 0645 Objective Remarks GENERAL: NAD SKIN: Warm and dry. HEAD: Normocephalic. EYES: No scleral icterus. No injection or drainage. NECK: Supple, trachea midline. No JVD or lymphadenopathy. CARDIOVASCULAR: Regular rate and rhythm without murmurs, gallops, or rubs. RESPIRATORY: Breath sounds equal bilaterally. No accessory muscle use. GASTROINTESTINAL: Abdomen soft, non-tender, mildly distended. MUSCULOSKELETAL: No cyanosis; +2 pitting edema BLE with surrounding erythema. BACK: Nontender without obvious deformity. No CVA tenderness. 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 +1#4 blood culture Repeat blood culture Appreciate input from ID Continue vancomycin Ascites Status post therapeutic paracentesis Continue with Lasix and Xifaxan Cirrhosis of liver secondary to Boykin Continue treatment as an above Venous stasis dermatitis of both lower extremities versus cellulitis Currently on vancomycin and status post Zosyn Appreciate input from infectious disease specialist Change Lasix to 40 mg IV Q12h Acute kidney injury-resolved Continue to monitor BUN and creatinine Avoid all nephrotoxic drug Lactic acidosis Secondary to acute renal injury, dehydration and less likely due to infectious processes Monitor lactic acid Hypokalemia Resolved status post replacement Hypertension Hold lisinopril and continue Inderal 20 mg every 12 hours Hyperthyroidism Continue methimazole DVT prophylaxis: Mechanical anti prophylaxis is contraindicated Problem Qualifiers (1) Ascites: Qualified Codes: R18.8 - Other ascites (2) Cellulitis: Qualified Codes: L03.119 - Cellulitis of unspecified part of limb Tomer Snowden MD Sep 11, 2017 11:20
[2017-09-11 12:00] VITALS: BP 141/63; PULSE 60; RESP 17; TEMP 97.8; O2SAT 98
[2017-09-11 16:00] VITALS: BP 137/60; PULSE 65; RESP 17; TEMP 98.1; O2SAT 95
--- NOTE | 2017-09-11 17:15 | HHI.IDPN ---
Note Infectious Disease Note Patient says he feels okay. Sitting up in a chair. Denies chills or shortness of breath. Afebrile. Both legs continue to have significant edema. Erythema of the right is slightly decreased. 81-year-old white male who presented to the emergency department on 09/08 with edema of the lower extremities. The patient has history of BOYKIN. He states that he developed bilateral lower extremity swelling and also abdomen swelling 2 days before presenting to emergency department. Reports no improvement with Lasix. PAST MEDICAL HISTORY: GI bleed approximately 2 years ago. Nonalcoholic steatohepatitis, hyperthyroidism, bilateral TKAs in the . ALLERGIES: IBUPROFEN, NAPROXEN, MORPHINE. MEDICATIONS: Current Medications Medications (Trade) Dose Ordered Sig/Aidan Route PRN Reason Start Time Stop Time Status Last Admin Dose Admin Sodium Chloride (NS Flush) 2 ml UNSCH PRN IV FLUSH FLUSH AFTER USING IV ACCESS 09/08/17 08:30 09/09/17 21:05 Pravastatin Sodium (Pravachol) 10 mg DAILY PO 09/08/17 13:15 09/11/17 09:30 Pharmacy Profile Note 0 ml @ 0 mls/hr UNSCH OTHER 09/08/17 15:15 Vancomycin HCl 1500 mg/Sodium Chloride 515 ml @ 250 mls/hr Q24H IV 09/09/17 06:00 09/11/17 05:46 Propranolol HCl (Inderal) 20 mg Q12HR PO 09/09/17 21:00 09/11/17 09:30 Methimazole (Tapazole) 10 mg DAILY PO 09/10/17 09:00 09/11/17 09:30 Rifaximin (Xifaxan) 550 mg BID PO 09/10/17 21:00 09/11/17 09:31 Miscellaneous Information ([facility] Ordered Lab Info) SPECIFIC LAB TO BE REHAN... ONCE ONCE .XX 09/16/17 05:45 09/16/17 05:46 Furosemide (Lasix Inj) 40 mg BID@18 IV PUSH 09/11/17 18:00 SOCIAL HISTORY: The patient quit drinking alcohol 40 years ago. He quit using tobacco 16 years ago. No illicit drugs. He is retired. Objective: Vital Signs Date Time Temp Pulse Resp B/P (MAP) Pulse Ox O2 Delivery O2 Flow Rate FiO2 09/11/17 08:00 97.5 58 17 139/58 (85) 96 09/11/17 05:31 97.8 58 18 112/59 (76) 96 09/11/17 00:36 97.3 64 20 133/57 (82) 96 09/10/17 20:41 98.1 63 18 148/66 (93) 99 Laboratory Tests Test 09/10/17 06:45 Blood Urea Nitrogen 19 MG/DL Creatinine 1.13 MG/DL Random Glucose 86 MG/DL Calcium Level 8.1 MG/DL Sodium Level 142 MEQ/L Potassium Level 3.6 MEQ/L Chloride Level 106 MEQ/L Carbon Dioxide Level 27.9 MEQ/L Anion Gap 8 MEQ/L Estimat Glomerular Filtration Rate 62 ML/MIN Microbiology Date/Time Source Procedure Growth Status 09/11/17 00:26 Blood Peripheral Aerobic Blood Culture Pending Received 09/11/17 00:26 Blood Peripheral Anaerobic Blood Culture Pending Received 09/10/17 11:35 Blood Peripheral Aerobic Blood Culture - Preliminary NO GROWTH IN 1 DAY Resulted 09/10/17 11:35 Blood Peripheral Anaerobic Blood Culture - Preliminary NO GROWTH IN 1 DAY Resulted PHYSICAL EXAMINATION: GENERAL: No acute distress. HEENT: The head is atraumatic. Extraocular movements grossly intact. Pupils reactive to light. No icterus. Oropharynx, moist mucosa without lesions. NECK: Supple. No adenopathy or swelling. LUNGS: Clear breath sounds, bilateral. HEART: Regular S1, S2. No audible murmurs. ABDOMEN: Distended, obese, diminished bowel sounds. Nontender. EXTREMITIES: 2+ edema of both legs. The right tibia has slightly decreased erythema, edema at both tibias and at the dorsum of both feet beyond the base of the toes. There is also mild erythema at the distal left tibia. The right tibia is warm to touch. SKIN: No diffuse rash. NEUROLOGIC: Nonfocal. PSYCHIATRIC: The patient is calm, pleasant and cooperative. IMPRESSION: 1. Positive blood culture, 1 bottle with bacillus species, which is likely contamination. The patient without clear evidence suggesting sepsis. 2. Cellulitis involving both lower extremities, but more pronounced on the right lower extremity. Little improvement. 3. Lower extremity edema in patient with cirrhosis. Also, patient has ascites. RECOMMENDATIONS: 1. Stop vancomycin. 2. Begin intravenous Ancef. 3. Wrap both feet with Carl bandages. 4. Monitor the wounds. 5. Monitor the blood culture, which was repeated on 09/10. 6. Follow his clinical response to antibiotic treatment. The response will be monitored to determine if he can be switched to p.o. antibiotics or if he needs to continue IV antibiotics outpatient. Michael Heath MD Sep 11, 2017 17:15
[2017-09-11] MEDS: ceFAZolin 2 GM PREMIX 50 ML IV SCH (18:28)
[2017-09-11] MEDS: FUROSEMIDE 40 MG/4 ML VIAL IV PUSH SCH (18:28)
[2017-09-11 21:20] VITALS: BP 130/58; PULSE 61; RESP 17; TEMP 98.3; O2SAT 96
[2017-09-12 00:40] VITALS: BP 125/66; PULSE 66; RESP 18; TEMP 97.6; O2SAT 97
[2017-09-12] MEDS: ceFAZolin 2 GM PREMIX 50 ML IV SCH (05:07)
[2017-09-12 05:45] VITALS: BP 125/66; PULSE 63; RESP 17; TEMP 98; O2SAT 97
[2017-09-12 08:00] LABS: AUTOMATED NEUTROPHIL # 5.6 TH/MM3 (1.8-7.7); BASOPHIL # 0.1 TH/MM3 (0-0.2); BASOPHIL % 0.9 % (0.0-2.0); EOSINOPHIL # 0.5 TH/MM3 (0-0.4); EOSINOPHIL % 5.4 % (0.0-4.0); HEMATOCRIT 37.6 % (39.0-51.0); HEMOGLOBIN 13.3 GM/DL (13.0-17.0); LYMPH % 23.6 % (9.0-44.0); LYMPHOCYTE # 2.2 TH/MM3 (1.0-4.8); MEAN CELL VOLUME 92.7 FL (80.0-100.0); MEAN CORPUSCULAR HEMOGLOBIN 32.7 PG (27.0-34.0); MEAN CORPUSCULAR HGB CONC 35.3 % (32.0-36.0); MEAN PLATELET VOLUME 8.2 FL (7.0-11.0); MONO % 11.2 % (0.0-8.0); MONOCYTE # 1.1 TH/MM3 (0-0.9); NEUT % 58.9 % (16.0-70.0); PLATELET COUNT 144 TH/MM3 (150-450); RED BLOOD COUNT 4.06 MIL/MM3 (4.50-5.90); RED CELL DISTRIBUTION WIDTH 17.6 % (11.6-17.2); WHITE BLOOD COUNT 9.4 TH/MM3 (4.0-11.0)
[2017-09-12 08:30] LABS: ALBUMIN 2.4 GM/DL (3.4-5.0); AST (GOT) 82 U/L (15-37); BICARBONATE 27.6 MEQ/L (21.0-32.0); BLOOD UREA NITROGEN 21 MG/DL (7-18); CALCIUM 7.9 MG/DL (8.5-10.1); CHLORIDE 106 MEQ/L (98-107); CREATININE 1.24 MG/DL (0.60-1.30); GLOMERULAR FILTRATION RATE 56 ML/MIN (>89); GLUCOSE,RANDOM 100 MG/DL (74-106); SODIUM (NA) 142 MEQ/L (136-145)
[2017-09-12 08:34] LABS: ALKALINE PHOSPHATASE 93 U/L (45-117); ALT (GPT) 41 U/L (12-78); TOTAL BILIRUBIN ADULT 2.7 MG/DL (0.2-1.0)
[2017-09-12] MEDS: RIFAXIMIN 550 MG TAB PO SCH (09:00)
[2017-09-12] MEDS ORDERED: METHIMAZOLE 10 MG TAB PO SCH (09:00)
[2017-09-12] MEDS: PRAVASTATIN SOD 10 MG TAB PO SCH (09:22)
[2017-09-12] MEDS: METHIMAZOLE 10 MG TAB PO SCH (09:22)
[2017-09-12] MEDS: PROPRANOLOL HCL 20 MG TAB PO SCH (09:22)
[2017-09-12] MEDS: FUROSEMIDE 40 MG/4 ML VIAL IV PUSH SCH (09:23)
[2017-09-12 09:34] VITALS: BP 118/58; PULSE 57; RESP 20; TEMP 98; O2SAT 96
--- NOTE | 2017-09-12 10:48 | HHI.PR ---
Subjective Remarks Follow-up ascites s/p paracentesis/cirrhosis/venous stasis/cellulitis September 09, 2017-patient seen and examined, reports some improvement of abdominal swelling however continued to have lower extremity swelling with significant erythema. Afebrile. September 10, 2017-patient seen and examined, reports some improvement of lower extremity swelling. Denies any febrile episode. No chest pain or shortness of breath. One positive blood culture out of 4. by the bedside September 11, 2017-patient seen and examined, improving lower extremity cellulitis however patient still with bilateral lower extremity edema. Denies any shortness of breath or abdominal pain September 12, 2017-patient seen and examined, states he is able to ambulate freely without any significant lower extremity pains. Denies any shortness of breath. Currently afebrile. He was switched to Ancef yesterday. Son by the bedside Objective Vitals Vital Signs Date Time Temp Pulse Resp B/P (MAP) Pulse Ox O2 Delivery O2 Flow Rate FiO2 09/12/17 09:34 98.0 57 20 118/58 (78) 96 09/12/17 05:45 98.0 63 17 125/66 (85) 97 09/12/17 00:40 97.6 66 18 125/66 (85) 97 09/11/17 21:20 98.3 61 17 130/58 (82) 96 09/11/17 16:00 98.1 65 17 137/60 (85) 95 09/11/17 12:00 97.8 60 17 141/63 (89) 98 I/O 09/11/17 09/11/17 09/11/17 09/12/17 09/12/17 09/12/17 07:00 15:00 23:00 07:00 15:00 23:00 Intake Total 400 ml 400 ml Output Total 0 ml 3 ml Balance 400 ml 397 ml Intake Oral 400 ml 400 ml Output Urine Total 0 ml 3 ml # Bowel Movements 1 3 Result Diagram: 09/12/1772009/12/17720 Imaging Last Impressions Abdomen/Pelvis CT 09/08/17 08 Signed Impressions: CONCLUSION: 1. Cirrhotic appearing liver with splenomegaly and diffuse ascites consistent with cirrhosis and portal hypertension. The liver is considerably smaller in si ze and previous dated 09/27/2014. The overall size of the spleen is similar. 2. There are numerous calcified stones within the gallbladder. 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 Chest X-Ray 09/08/17 0816 Signed Impressions: CONCLUSION: 1. No acute cardiopulmonary disease. Cyst Biopsy Asp-Paracentesis US 09/08/17 0000 Signed Impressions: CONCLUSION: 1. Uncomplicated ultrasound-guided paracentesis. Objective Remarks GENERAL: NAD SKIN: Warm and dry. HEAD: Normocephalic. EYES: No scleral icterus. No injection or drainage. NECK: Supple, trachea midline. No JVD or lymphadenopathy. CARDIOVASCULAR: Regular rate and rhythm without murmurs, gallops, or rubs. RESPIRATORY: Breath sounds equal bilaterally. No accessory muscle use. GASTROINTESTINAL: Abdomen soft, non-tender, mildly distended. MUSCULOSKELETAL: No cyanosis; Carl wrap to bilateral lower extremities BACK: Nontender without obvious deformity. No CVA tenderness. 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 +1#4 blood culture Repeat blood culture Appreciate input from ID Continue Ancef, status post vancomycin Ascites Status post therapeutic paracentesis Continue with Lasix and Xifaxan Cirrhosis of liver secondary to Boykin Continue treatment as an above Venous stasis dermatitis of both lower extremities versus cellulitis Currently on Ancef, status post vancomycin Appreciate input from infectious disease specialist Currently on 40 mg IV Q12h Continue Carl wrap Acute kidney injury-resolved Continue to monitor BUN and creatinine Avoid all nephrotoxic drug Lactic acidosis Secondary to acute renal injury, dehydration and less likely due to infectious processes Lactic acid pending this a.m. Hypokalemia Resolved status post replacement Hypertension Hold lisinopril and continue Inderal 20 mg every 12 hours Hyperthyroidism Continue methimazole DVT prophylaxis: Mechanical anti prophylaxis is contraindicated Problem Qualifiers (1) Ascites: Qualified Codes: R18.8 - Other ascites (2) Cellulitis: Qualified Codes: L03.119 - Cellulitis of unspecified part of limb Tomer Snowden MD Sep 12, 2017 10:48
[2017-09-12 12:57] VITALS: BP 135/63; PULSE 68; RESP 20; TEMP 98.3; O2SAT 96
--- NOTE | 2017-09-12 14:49 | HHI.IDPN ---
Note Infectious Disease Note Patient is without complaints. Sitting up in a chair. Denies chills or shortness of breath. Afebrile. Edema of the legs has improved except for the left foot. Carl bandage wrapping was placed on the right foot and leg and also the left leg but not the left foot. Erythema of the right is continuing to improve. 81-year-old white male who presented to the emergency department on 09/08 with edema of the lower extremities. The patient has history of BOYKIN. He states that he developed bilateral lower extremity swelling and also abdomen swelling 2 days before presenting to emergency department. Reports no improvement with Lasix. PAST MEDICAL HISTORY: GI bleed approximately 2 years ago. Nonalcoholic steatohepatitis, hyperthyroidism, bilateral TKAs in the . ALLERGIES: IBUPROFEN, NAPROXEN, MORPHINE. MEDICATIONS: Current Medications Medications (Trade) Dose Ordered Sig/Aidan Route PRN Reason Start Time Stop Time Status Last Admin Dose Admin Sodium Chloride (NS Flush) 2 ml UNSCH PRN IV FLUSH FLUSH AFTER USING IV ACCESS 09/08/17 08:30 09/09/17 21:05 Pravastatin Sodium (Pravachol) 10 mg DAILY PO 09/08/17 13:15 09/12/17 09:22 Propranolol HCl (Inderal) 20 mg Q12HR PO 09/09/17 21:00 09/12/17 09:22 Methimazole (Tapazole) 10 mg DAILY PO 09/10/17 09:00 09/12/17 09:22 Rifaximin (Xifaxan) 550 mg BID PO 09/10/17 21:00 09/11/17 23:22 Miscellaneous Information ([facility] Ordered Lab Info) SPECIFIC LAB TO BE ... ONCE ONCE .XX 09/16/17 05:45 09/16/17 05:46 Furosemide (Lasix Inj) 40 mg BID@,18 IV PUSH 09/11/17 18:00 09/12/17 09:23 Cefazolin Sodium/ Dextrose 50 ml @ 100 mls/hr Q12H IV 09/11/17 18:00 09/12/17 05:07 SOCIAL HISTORY: The patient quit drinking alcohol 40 years ago. He quit using tobacco 16 years ago. No illicit drugs. He is retired. Objective: Vital Signs Date Time Temp Pulse Resp B/P (MAP) Pulse Ox O2 Delivery O2 Flow Rate FiO2 6/22/18 12:57 98.3 68 20 135/63 (87) 96 09/12/17 09:34 98.0 57 20 118/58 (78) 96 09/12/17 05:45 98.0 63 17 125/66 (85) 97 09/12/17 00:40 97.6 66 18 125/66 (85) 97 09/11/17 21:20 98.3 61 17 130/58 (82) 96 09/11/17 16:00 98.1 65 17 137/60 (85) 95 Laboratory Tests Test 09/12/17 07:21 White Blood Count 9.4 TH/MM3 Red Blood Count 4.06 MIL/MM3 Hemoglobin 13.3 GM/DL Hematocrit 37.6 % Mean Corpuscular Volume 92.7 FL Mean Corpuscular Hemoglobin 32.7 PG Mean Corpuscular Hemoglobin Concent 35.3 % Red Cell Distribution Width 17.6 % Platelet Count 144 TH/MM3 Mean Platelet Volume 8.2 FL Neutrophils (%) (Auto) 58.9 % Lymphocytes (%) (Auto) 23.6 % Monocytes (%) (Auto) 11.2 % Eosinophils (%) (Auto) 5.4 % Basophils (%) (Auto) 0.9 % Neutrophils # (Auto) 5.6 TH/MM3 Lymphocytes # (Auto) 2.2 TH/MM3 Monocytes # (Auto) 1.1 TH/MM3 Eosinophils # (Auto) 0.5 TH/MM3 Basophils # (Auto) 0.1 TH/MM3 CBC Comment DIFF FINAL Differential Comment Laboratory Tests Test 09/12/17 07:21 09/12/17 12:49 Blood Urea Nitrogen 21 MG/DL Creatinine 1.24 MG/DL Random Glucose 100 MG/DL Total Protein 6.0 GM/DL Albumin 2.4 GM/DL Calcium Level 7.9 MG/DL Alkaline Phosphatase 93 U/L Aspartate Amino Transf (AST/SGOT) 82 U/L Alanine Aminotransferase (ALT/SGPT) 41 U/L Total Bilirubin 2.7 MG/DL Sodium Level 142 MEQ/L Potassium Level 3.5 MEQ/L Chloride Level 106 MEQ/L Carbon Dioxide Level 27.6 MEQ/L Anion Gap 8 MEQ/L Estimat Glomerular Filtration Rate 56 ML/MIN Lactic Acid Level 2.4 mmol/L Microbiology Date/Time Source Procedure Growth Status 09/11/17 00:26 Blood Peripheral Aerobic Blood Culture - Preliminary NO GROWTH IN 1 DAY Resulted 09/11/17 00:26 Blood Peripheral Anaerobic Blood Culture - Preliminary NO GROWTH IN 1 DAY Resulted 09/10/17 11:35 Blood Peripheral Aerobic Blood Culture - Preliminary NO GROWTH IN 2 DAYS Resulted 09/10/17 11:35 Blood Peripheral Anaerobic Blood Culture - Preliminary NO GROWTH IN 2 DAYS Resulted PHYSICAL EXAMINATION: GENERAL: No acute distress. HEENT: Extraocular movements grossly intact. Pupils reactive to light. No icterus. Oropharynx, moist mucosa without lesions. NECK: Supple. No adenopathy or swelling. LUNGS: Clear breath sounds, bilateral. HEART: Regular S1, S2. No audible murmurs. ABDOMEN: Distended, obese, diminished bowel sounds. EXTREMITIES: 2+ edema of the left foot. 1+ edema of the right foot and of the legs. Erythema has improved and the legs are less warm. SKIN: No diffuse rash. NEUROLOGIC: Nonfocal. PSYCHIATRIC: Calm, pleasant and cooperative. IMPRESSION: 1. Positive blood culture, 1 bottle with bacillus species, which is likely contamination. The patient without clear evidence suggesting sepsis. 2. Cellulitis involving both lower extremities, but more pronounced on the right lower extremity. No showing satisfactory improvement. 3. Lower extremity edema in patient with cirrhosis. Also, patient has ascites. Edema has improved with Carl wrapping. RECOMMENDATIONS: 1. Stop vancomycin. 2. Stop Ancef. Okay to discharge home with p.o. Keflex 500 mg 4 times daily 7 days. Michael Heath MD Sep 12, 2017 14:49
[2017-09-12] MEDS ORDERED: CEPH500C PO (15:11)
[2017-09-12] MEDS ORDERED: FURO1TAB62 PO (15:24)
--- NOTE | 2017-09-12 15:26 | HHI.DS ---
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 Patient was in his usual state of health until about 2-3 days ago when he says his abdomen and his lower extremities began rapidly swelling up. Says he noted he had abdominal discomfort but no abdominal pain. Says his bowel movements have been actually normalizing with normal consistency, was recently constipated. Says his feet started hurting badly when they get swollen, pain would worsen with ambulation and bearing weight. Also noted that his legs got red and swollen the last 2-3 days. Patient says that he has had some chronic level of edema in his lower extremities as well as his abdominal distention. Says he was prescribed to start taking 8-9 days ago, but could not get to see his GI doctor before the 2 days from now. Called his PCP, was recommended come to emergency department. Denies any fevers, reports some subjective chills. Patient denies ever having a paracentesis done in the past. 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 CBC/BMP: 09/12/17 0721 09/12/17 0721 Significant Findings Laboratory Tests Test 09/10/17 06:45 09/11/17 05:30 09/12/17 07:21 09/12/17 12:49 Blood Urea Nitrogen 19 MG/DL (7-18) 21 MG/DL (7-18) Calcium Level 8.1 MG/DL (8.5-10.1) 7.9 MG/DL (8.5-10.1) Estimat Glomerular Filtration Rate 62 ML/MIN (>89) 56 ML/MIN (>89) Vancomycin Level Trough 12.4 MCG/ML (5.0-10.0) Red Blood Count 4.06 MIL/MM3 (4.50-5.90) Hematocrit 37.6 % (39.0-51.0) Red Cell Distribution Width 17.6 % (11.6-17.2) Platelet Count 144 TH/MM3 (150-450) Monocytes (%) (Auto) 11.2 % (0.0-8.0) Eosinophils (%) (Auto) 5.4 % (0.0-4.0) Monocytes # (Auto) 1.1 TH/MM3 (0-0.9) Eosinophils # (Auto) 0.5 TH/MM3 (0-0.4) Total Protein 6.0 GM/DL (6.4-8.2) Albumin 2.4 GM/DL (3.4-5.0) Aspartate Amino Transf (AST/SGOT) 82 U/L (15-37) Total Bilirubin 2.7 MG/DL (0.2-1.0) Lactic Acid Level 2.4 mmol/L (0.4-2.0) PE at Discharge GENERAL: NAD SKIN: Warm and dry. HEAD: Normocephalic. EYES: No scleral icterus. No injection or drainage. NECK: Supple, trachea midline. No JVD or lymphadenopathy. CARDIOVASCULAR: Regular rate and rhythm without murmurs, gallops, or rubs. RESPIRATORY: Breath sounds equal bilaterally. No accessory muscle use. GASTROINTESTINAL: Abdomen soft, non-tender, mildly distended. MUSCULOSKELETAL: No cyanosis; Carl wrap to bilateral lower extremities BACK: Nontender without obvious deformity. No CVA tenderness. Hospital Course During patient hospitalization, he underwent ultrasound-guided thoracentesis. Patient admitted with bilateral lower extremity cellulitis along with swelling for which he was started on IV antibiotics as well as IV diuretic. Secondary to the positive blood culture, infectious disease specialist was consulted. Patient was switched to Ancef and subsequently discharged home on Keflex 500 mg 4 times daily. His conditions improved prior to discharge. On exam, patient's bilateral lower extremity edema improved. Vitals remained stable. Patient renal function improved prior to discharge. He will continue Keflex 500 4 times daily 7 days. Pt Condition on Discharge: Good Discharge Disposition: Discharge Home Discharge Time: <= 30 minutes Discharge Instructions DIET: Follow Instructions for: Heart Healthy Diet Activities you can perform: Regular-No Restrictions Follow up Referrals: PCP Follow-up - 1 Week New Medications: Furosemide (Lasix) 20 Mg Tab 20 MG PO BID for Prevent Heart Failure, #60 TAB 0 Refills Cephalexin (Cephalexin) 500 Mg Cap 500 MG PO Q6HR for Infection, #28 CAP Continued Medications: Ferrous Fumarate-Iron Polysacc (Tandem 162-115.2 mg) 1 Cap Cap 105 MG PO DAILY for Nutritional Supplement Lisinopril (Lisinopril) 10 Mg Tab 10 MG PO DAILY, #30 TAB 0 Refills Methimazole (Methimazole) 10 Mg Tab Pantoprazole (Pantoprazole) 40 Mg Tab Pravastatin (Pravastatin) 10 Mg Tab 10 MG PO DAILY for Cholesterol Management, #30 TAB 0 Refills Discontinued Medications: Furosemide (Lasix) 20 Mg Tab 20 MG PO DAILY, #30 TAB 0 Refills Tomer Snowden MD Sep 12, 2017 15:26
[2017-09-12] MEDS ORDERED: CEPHALEXIN MONOHYDRATE 500 MG CAP PO SCH (18:00)
[2017-09-16] MEDS ORDERED: PHARMACY ORDERED LAB ONE (05:45)
== END 2017-09-12 16:38 | disposition home or self-care (01) | DRG 433 ==
LOC: NEPE 07:59 → NEDA 12:35 → N05B 15:52 → N05A 16:04
PROVIDERS: ADMIT Hospitalist; ATTEND Hospitalist
PROC: 0W9G3ZZ Drainage of Peritoneal Cavity, Percutaneous Approach (ICD-10-PCS; principal; 2017-09-08)
DX: K74.69 Other cirrhosis of liver (principal); R18.8 Other ascites; N17.9 Acute kidney failure, unspecified; E87.2 Acidosis; R78.81 Bacteremia; L03.115 Cellulitis of right lower limb; K76.6 Portal hypertension; L03.116 Cellulitis of left lower limb; E87.70 Fluid overload, unspecified; E05.90 Thyrotoxicosis, unspecified without thyrotoxic crisis or storm; K75.81 Nonalcoholic steatohepatitis (NASH); K59.00 Constipation, unspecified; I10 Essential (primary) hypertension; E87.6 Hypokalemia; E86.0 Dehydration; I87.2 Venous insufficiency (chronic) (peripheral); Z83.3 Family history of diabetes mellitus; Z87.891 Personal history of nicotine dependence; Z88.5 Allergy status to narcotic agent; Z96.653 Presence of artificial knee joint, bilateral; I87.8 Other specified disorders of veins
CPT/HCPCS: 49083; 71045; 74177; 80048; 80053; 80202; 82042; 82948; 83605; 83690; 83880; 84157; 85025; 85610; 85730; 87040; 87070; 87205; 89051; 96374; C1729; J0690; J1940; J2543; J3370; J7040; J7050; P9047; Q9967

== ENCOUNTER 2017-10-01 11:52 | Inpatient (IN) ==
[2017-10-01] MEDS ORDERED: metOLazone 5 MG Tablet PO ONE (15:34)
--- NOTE | 2017-10-01 16:11 | ED ---
HPI General Chief complaint: Recheck/Abnormal Lab/Rx Stated complaint: Dr sent / ab labs Time Seen by Provider: 10/01/17 15:18 Source: patient, family and old records reviewed History of Present Illness HPI narrative: This is an 82-year-old male presents emerged from complaining of worsening abdominal swelling, worsening lower extremity edema, worsening erythema pain, both lower 70s but left worse than right. 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 He is diagnosed about a month or so ago with liver disease. He had a paracentesis for the first time then. He was discharged, and was been on long-term antibiotic therapy, but the site that has had worsening symptoms. He saw Dr. Gibsno, with nephrology, yesterday who started changed him to Bumex 2 mg twice a day and metolazone 10 mg twice a day, but he still starting these new medications. Symptoms continue to worsen as well as primary care doctor today who referred him to the emergency department. Related Data Home Medications Medication Instructions Recorded Confirmed bumetanide 2 mg PO BID 10/01/17 10/01/17 doxycycline hyclate 100 mg PO BID 10/01/17 10/01/17 metolazone 10 mg PO DIRECTED 10/01/17 10/01/17 pantoprazole 40 mg PO BID 10/01/17 10/01/17 potassium chloride 10 meq PO BID 10/01/17 10/01/17 pravastatin 10 mg PO DAILY 10/01/17 10/01/17 Allergies Allergy/AdvReac Type Severity Reaction Status Date / Time ibuprofen AdvReac Severe cirrhosis Verified 10/01/17 14:51 morphine AdvReac Severe Nausea/Vomi Verified 10/01/17 14:51 ting naproxen AdvReac Severe cirrhosis Verified 10/01/17 14:51 Review of Systems ROS Unobtainable All other systems reviewed negative except as stated in HPI [facility] Medical History Medical History Ascites (Acute) Cataract (lens) fragments in eye following cataract surgery, bilateral (Acute) Cellulitis (Acute) Cirrhosis of liver (Acute) Failed total knee, left (Acute) Failed total knee, right (Acute) GERD (gastroesophageal reflux disease) (Acute) Hypercholesteremia (Acute) Kidney disease (Acute) Left wrist fracture (Acute) Social History Social History Substance History: No History of Abuse Second Hand Smoke Exposure: No Smoking Status: Former smoker Tobacco Type: Cigarettes How Often Do You Have a Drink Containing Alcohol: Never Recent Travel in [place] within the Last 8 Weeks: No Recent Out of Country Travel within the Last 8 Weeks: No Immunization History Tetanus Immunization: Unsure Hx Influenza Vaccine This Season: Yes Exam Narrative Exam Narrative: GENERAL: An elderly appearing 82-year-old man, nontoxic, no acute distress. SKIN: Focused skin assessment warm/dry. HEAD: Atraumatic. Normocephalic. EYES: Pupils equal and round. No scleral icterus. No injection or drainage. ENT: No nasal bleeding or discharge. Mucous membranes pink and moist. NECK: Trachea midline. No JVD. CARDIOVASCULAR: Regular rate and rhythm. No murmur appreciated. RESPIRATORY: No accessory muscle use. Clear to auscultation. Breath sounds equal bilaterally. GASTROINTESTINAL: Prominent ascites. Abdomen is rotund and distended. No significant tenderness. MUSCULOSKELETAL: No obvious deformities. Profound pitting edema both lower extremities. Marked erythema with sharp demarcation in the left lower extremity. Slight warmth. NEUROLOGICAL: Awake and alert. No obvious cranial nerve deficits. Motor grossly within normal limits. Normal speech. PSYCHIATRIC: Appropriate mood and affect; insight and judgment normal. Course Initial Documented Vital Signs Temperature 97.5 F L 10/01/17 12:09 Pulse Rate 83 10/01/17 12:09 Respiratory Rate 24 10/01/17 12:09 Blood Pressure 111/40 L 10/01/17 12:09 Pulse Oximetry 96 10/01/17 12:09 Last Documented Vital Signs Temperature 97.5 F L 10/01/17 12:09 Pulse Rate 83 10/01/17 14:59 Respiratory Rate 24 10/01/17 14:59 Blood Pressure 110/51 L 10/01/17 14:59 Pulse Oximetry 100 10/01/17 14:59 Medical Decision Making MDM Narrative Medical decision making narrative: 82-year-old man presents emerged department worsening lower extremity edema ascites in the setting of known liver disease, with worsening nonhealing patient likely needs paracentesis, more aggressive diuresis. He was just recommended some changes by his animation artist yesterday but has not really implemented them yet. We will give him Bumex and metolazone here. We will continue these. Will get ultrasound rule out DVT, unlikely. We will likely need admission for IV diuresis until he shows a trend toward improvement, wrapping of the lower extremities, and antibiotics. Cellulitis likely improve once edema is managed. Lab Data Lab results reviewed: Yes I reviewed the patient's lab results. Result diagrams: 10/01/17 17:46 10/01/17 17:46 Lab Results 10/01/17 10/01/17 10/01/17 Range/Units 17:46 17:46 17:46 WBC 11.5 H (4.0-11.0) th/mm3 RBC 3.39 L (4.50-5.90) mil/mm3 Hgb 11.6 L (13.0-17.0) gm/dL Hct 33.0 L (39.0-51.0) % MCV 97.3 (80.0-100.0) fL MCH 34.2 H (27.0-34.0) pg MCHC 35.2 (32.0-36.0) % RDW 17.5 H (11.6-17.2) % Plt Count 229 (150-450) th/mm3 MPV 7.8 (7.0-11.0) fL Neut % (Auto) 75.7 H (16.0-70.0) % Lymph % (Auto) 14.7 (9.0-44.0) % [place] % (Auto) 7.1 (0.0-8.0) % Eos % (Auto) 1.8 (0.0-4.0) % Baso % (Auto) 0.7 (0.0-2.0) % Neut # (Auto) 8.7 H (1.8-7.7) th/mm3 Lymph # (Auto) 1.7 (1.0-4.8) th/mm3 [place] # (Auto) 0.8 (0.0-0.9) th/mm3 Eos # (Auto) 0.2 (0.0-0.4) th/mm3 Baso # (Auto) 0.1 (0.0-0.2) th/mm3 WBC Differential . Differential Comment Auto diff final PT 18.4 H (9.8-11.6) sec INR 1.8 Ratio APTT 31.9 H (24.3-30.1) sec Sodium 135 L (136-145) meq/L Potassium 6.0 H (3.5-5.1) meq/L Chloride 103 (98-107) meq/L Carbon Dioxide 17.5 L (21.0-32.0) meq/L Anion Gap 15 (5-15) meq/L BUN 94 H (7-18) mg/dL Creatinine 6.19 H (0.60-1.30) mg/dL Estimated GFR 9 L (>89) mL/min Random Glucose 76 (74-106) mg/dL Calcium 9.0 (8.5-10.1) mg/dL Total Bilirubin 2.4 H (0.2-1.0) mg/dL AST 103 H (15-37) U/L ALT 46 (12-78) U/L Alkaline Phosphatase 87 (45-117) U/L Total Protein 6.7 (6.4-8.2) g/dL Albumin 2.4 L (3.4-5.0) g/dL Imaging Data Radiologist's impression: ITS Impressions Venous Doppler Study 10/01/17 15:34 CONCLUSION: 1. Nonocclusive thrombus. Renal vein on the right below the knee. 2. Popliteal cyst on the right. 3. Generalized edema. DVT: Popliteal vein on the right. Discharge Plan Discharge Disposition Patient Disposition: 30 Still Patient Physicians Team ED Provider: Dano Fatima Primary Care Provider: NON STAFF,PROVIDER Rxs /Orders / Referrals /Forms Prescriptions: No Action potassium chloride 10 mEq Capsule, Extended Release 10 meq PO BID RF: 0 pantoprazole 40 mg Tablet,Delayed Release (Dr/Ec) 40 mg PO BID RF: 0 doxycycline hyclate 100 mg Capsule 100 mg PO BID RF: 0 bumetanide 2 mg Tablet 2 mg PO BID RF: 0 pravastatin 10 mg Tablet 10 mg PO DAILY RF: 0 metolazone 10 mg Tablet 10 mg PO DIRECTED RF: 0 Discharge Interventions Interventions: Vital Signs Last Done: 10/01/17 14:59 Status ED Status: Pending Admission
--- NOTE | 2017-10-01 17:34 | US ---
EXAM DATE: 10/01/2017 5:23 PM EDT AGE/SEX: 82 years / Male INDICATIONS: Bilateral leg swelling. CLINICAL DATA: This is the patient's initial encounter. Patient reports that signs and symptoms have been present for 2 weeks and indicates a pain score of 6/10. MEDICAL/SURGICAL HISTORY: Cirrhosis. Hypercholesterolemia. Ascites. Cellulitis. GERD. Kidney d isease. Left wrist fracture. . Bilateral total knee replacement. Cataract surgery. COMPARISON: [facility], US LEG VENOUS DOPPLER, LEFT, 04/06/2014. . TECHNIQUE: Venous ultrasound of both lower extremities was performed from the inguinal ligament to t he proximal calf. Real-time, color Doppler and spectral tracing, compression and augmentation techni ques were used. FINDINGS: Right Leg: Nonocclusive thrombus is seen in the peroneal vein. 2 cm x 2.6 cm popliteal cyst. Marked soft tissue edema. Left Leg: Marked soft tissue edema. Normal compression of the deep venous system from the inguinal re gion to the proximal calf. No echogenic clot is seen. Normal response of the venous system to augment ation and respiration. CONCLUSION: 1. Nonocclusive thrombus. Renal vein on the right below the knee. 2. Popliteal cyst on the right. 3. Generalized edema. Electronically signed by: Jesus Disla MD 10/01/2017 5:32 PM EDT
[2017-10-01 18:17] LABS: Baso # (Auto) 0.1 th/mm3 (0.0-0.2); Baso % (Auto) 0.7 % (0.0-2.0); Eos # (Auto) 0.2 th/mm3 (0.0-0.4); Eos % (Auto) 1.8 % (0.0-4.0); Hemoglobin 11.6 gm/dL (13.0-17.0); Lymph # (Auto) 1.7 th/mm3 (1.0-4.8); Lymph % (Auto) 14.7 % (9.0-44.0); Mean Corpuscular HGB Conc 35.2 % (32.0-36.0); Mean Corpuscular Hemoglobin 34.2 pg (27.0-34.0); Mean Corpuscular Volume 97.3 fL (80.0-100.0); Mean Platelet Volume 7.8 fL (7.0-11.0); Mono # (Auto) 0.8 th/mm3 (0.0-0.9); Mono % (Auto) 7.1 % (0.0-8.0); Neut # (Auto) 8.7 th/mm3 (1.8-7.7); Neut % (Auto) 75.7 % (16.0-70.0); Platelet Count 229 th/mm3 (150-450); Red Blood Count 3.39 mil/mm3 (4.50-5.90); Red Cell Distribution Width 17.5 % (11.6-17.2); White Blood Count 11.5 th/mm3 (4.0-11.0)
[2017-10-01 18:20] LABS: Activated Partial Thrombo Time 31.9 sec (24.3-30.1); INR 1.8 Ratio; Prothrombin Time 18.4 sec (9.8-11.6)
[2017-10-01 18:34] LABS: Alanine Aminotransferase 46 U/L (12-78); Albumin 2.4 g/dL (3.4-5.0); Anion Gap 15 meq/L (5-15); Aspartate Aminotransferase 103 U/L (15-37); Blood Urea Nitrogen 94 mg/dL (7-18); Carbon Dioxide 17.5 meq/L (21.0-32.0); Chloride 103 meq/L (98-107); Glomerular Filtration Rate 9 mL/min (>89); Glucose,Random 76 mg/dL (74-106); Sodium 135 meq/L (136-145)
[2017-10-01 18:37] LABS: Alkaline Phosphatase 87 U/L (45-117); Total Protein 6.7 g/dL (6.4-8.2)
[2017-10-01] MEDS ORDERED: Bisacodyl 10 MG Supp RECTAL PRN (21:01)
[2017-10-01] MEDS ORDERED: Temazepam 15 MG Capsule PO PRN (21:01)
[2017-10-01] MEDS ORDERED: Clindamycin 900 mg/NS Premix 900 MG/50 ML PIGGYBACK IV.SIG SCH (23:00)
--- NOTE | 2017-10-01 23:31 | P.HP ---
History of Present Illness Service: [facility] Primary Care Physician: PROVIDER NON STAFF Chief Complaint: LE redness/edema History of Present Illness: 82-year-old male with a past medical history significant for cirrhosis from nonalcoholic steatohepatitis presents to the emergency department for evaluation of bilateral lower extremity edema and redness. The patient reports that for the past 1-2 weeks his legs have become increasingly swollen and red. He states his PCP prescribed Lasix for him initially and that he was seen by ham stripper yesterday who prescribed Bumex and metolazone. The patient has yet to start his Bumex and metolazone. He also reports abdominal distention and pressure. The patient was diagnosed with cirrhosis approximately 1 month ago and had a paracentesis at that time. He was treated for his bilateral lower extremity cellulitis with doxycycline however no improvement in his symptoms has occurred despite compliance with medication. The patient is an extremely poor historian. He denies any shortness of breath or chest pain. Positive abdominal pressure. No nausea/vomiting/diarrhea. No fever/chills. No lateralizing signs/symptoms. Inpatient Certification: I certify that the inpatient services were ordered in accordance with Medicare regulations governing the order. This includes certification that hospital inpatient services are reasonable and necessary and in the case of services not specified as inpatient-only under 42 CFR 419.22(n), that they are appropriately provided as inpatient services in accordance to with the 2-midnight benchmark under 43 CFR 412.3(e) Estimated Total Length of Stay (Days): 2 Plans for Post Hospital Care: Not yet determined Review of Systems All other systems reviewed negative except as stated in [facility] - History History Provided By: Patient, Family Member - Medical History Medical History: Medical History (Last Updated 10/01/17 @ 15:03 by Jaci Rosas) Ascites Cataract (lens) fragments in eye following cataract surgery, bilateral Cellulitis Cirrhosis of liver Failed total knee, left Failed total knee, right GERD (gastroesophageal reflux disease) Hypercholesteremia Kidney disease Left wrist fracture - Tobacco History Second Hand Smoke Exposure: No Tobacco Use In Past 30 Days: No Smoking Status: Former smoker Tobacco Type: Cigarettes - Alcohol History How Often Do You Have a Drink Containing Alcohol: Never - Substance Use History Substance History: No History of Abuse - Travel History Recent Travel in the [place] Within the Last 8 Weeks: No Recent Travel Out of the Country Within the Last 8 Weeks: No - Immunization History Tetanus Immunization: Unsure Hx Influenza Vaccine This Season: Yes Medications and Allergies Active Medications: Active Medications Al Hydroxide/Mg Hydroxide (Milk Of Magnesia Liq) 30 ml PO Q12H PRN PRN Reason: Mild Constipation Bisacodyl (Dulcolax Supp) 10 mg RECTAL DAILY PRN PRN Reason: SEVERE CONSITIPATION Clindamycin/Sodium Chloride (Cleocin 900 Mg/Ns Premix) 900 mg in 50 mls @ 100 mls/hr IV.SIG Q8H REJI Lactulose (Lactulose Liq) 30 ml PO DAILY PRN PRN Reason: SEVERE CONSITIPATION Ondansetron HCl (Zofran Odt) 4 mg PO Q6H PRN PRN Reason: NAUSEA OR VOMITING Pantoprazole Sodium (Protonix) 40 mg PO BID REJI Senna/Docusate Sodium (Laine-Colace) 1 tab PO BID REJI Sennosides (Senokot) 17.2 mg PO Q12H PRN PRN Reason: Moderate Constipation Temazepam (Restoril) 15 mg PO HS PRN PRN Reason: INSOMNIA Allergies Allergy/AdvReac Type Severity Reaction Status Date / Time ibuprofen AdvReac Severe cirrhosis Verified 10/01/17 14:51 morphine AdvReac Severe Nausea/Vomi Verified 10/01/17 14:51 ting naproxen AdvReac Severe cirrhosis Verified 10/01/17 14:51 Home Medications Medication Instructions Recorded Confirmed Type bumetanide 2 mg PO BID 10/01/17 10/01/17 History doxycycline hyclate 100 mg PO BID 10/01/17 10/01/17 History metolazone 10 mg PO DIRECTED 10/01/17 10/01/17 History pantoprazole 40 mg PO BID 10/01/17 10/01/17 History potassium chloride 10 meq PO BID 10/01/17 10/01/17 History pravastatin 10 mg PO DAILY 10/01/17 10/01/17 History Exam Vital signs: Vital Signs 10/01/17 12:09 10/01/17 14:59 10/01/17 21:01 Temperature 97.5 F L Pulse Rate 83 83 78 Respiratory Rate 24 24 20 Blood Pressure 111/40 L 110/51 L 99/45 L Pulse Oximetry 96 100 99 10/01/17 22:45 Temperature Pulse Rate 73 Respiratory Rate 15 Blood Pressure 109/53 L Pulse Oximetry 100 Intake & Output 10/01/17 10/01/17 10/02/17 06:59 18:59 06:59 Weight 81.647 kg Narrative: Gen.: No acute distress Head: Normocephalic. Atraumatic. EENT: Pupils equal round and reactive to light. Nose without drainage. Airway intact. Throat without injection. Cardiovascular: Regular rate and rhythm. No murmurs, rubs or gallops. Respiratory: Lungs clear to auscultation bilaterally. No wheezes or rhonchi. Abdomen: Soft, mildly tender to palpation in the lower quadrant, positive distention. No peritoneal signs. Musculoskeletal: No gross deformities. 2+ pitting lower extremity edema, left greater than right. Skin: Bilateral lower extremity erythema that extends from ankle to knee. Neuro: Sensory and motor grossly intact. Cranial nerves II through XII grossly intact. Psych: Appropriate mood and affect Results - Labs CBC & Chem 7: 10/01/17 17:46 10/01/17 17:46 Labs: Laboratory Results - last 24 hr 10/01/17 10/01/17 10/01/17 17:46 17:46 17:46 WBC 11.5 H RBC 3.39 L Hgb 11.6 L Hct 33.0 L MCV 97.3 MCH 34.2 H MCHC 35.2 RDW 17.5 H Plt Count 229 MPV 7.8 Neut % (Auto) 75.7 H Lymph % (Auto) 14.7 [place] % (Auto) 7.1 Eos % (Auto) 1.8 Baso % (Auto) 0.7 Neut # (Auto) 8.7 H Lymph # (Auto) 1.7 [place] # (Auto) 0.8 Eos # (Auto) 0.2 Baso # (Auto) 0.1 WBC Differential . Differential Comment Auto diff final PT 18.4 H INR 1.8 APTT 31.9 H Sodium 135 L Potassium 6.0 H Chloride 103 Carbon Dioxide 17.5 L Anion Gap 15 BUN 94 H Creatinine 6.19 H Estimated GFR 9 L Random Glucose 76 Calcium 9.0 Total Bilirubin 2.4 H AST 103 H ALT 46 Alkaline Phosphatase 87 Total Protein 6.7 Albumin 2.4 L - Imaging Impressions Venous Doppler Study 10/01/17 15:34 CONCLUSION: 1. Nonocclusive thrombus. Renal vein on the right below the knee. 2. Popliteal cyst on the right. 3. Generalized edema. Caprini VTE Risk Assessment Caprini VTE Risk Assessment: Moderate/High Risk (score >= 2) Caprini Risk Assessment Model: Point Value = 1 Point Value = 2 Point Value = 3 Point Value = 5 Age 41-60 Minor surgery BMI > 25 kg/m2 Swollen legs Varicose veins or History of unexplained or recurrent spontaneous Oral contraceptives or hormone replacement Sepsis (< 1 month) Serious lung disease, including pneumonia (< 1 month) Abnormal pulmonary function Acute myocardial infarction Congestive heart failure (< 1 month) History of inflammatory bowel disease Medical patient at bed rest Age 61-74 Arthroscopic surgery Major open surgery (> 45 min) Laparoscopic surgery (> 45 min) Malignancy Confined to bed (> 72 hours) Immobilizing plaster cast Central venous access Age >= 75 History of VTE Family history of VTE Factor V Leiden Prothrombin [id number] Lupus anticoagulant Anticardiolipin antibodies Elevated serum homocysteine Heparin-induced thrombocytopenia Other congenital or acquired thrombophilia Stroke (< 1 month) Elective arthroplasty Hip, pelvis, or leg fracture Acute spinal cord injury (< 1 month) Prophylaxis Regimen: Total Risk Factor Score Risk Level Prophylaxis Regimen 0-1 Low Early ambulation 2 Moderate Order ONE of the following: *Sequential Compression Device (SCD) *Heparin 5000 units SQ BID 3-4 Higher Order ONE of the following medications: *Heparin 5000 units SQ TID *Enoxaparin/Lovenox 40 mg SQ daily (WT < 150 kg, CrCl > 30 mL/min) *Enoxaparin/Lovenox 30 mg SQ daily (WT < 150 kg, CrCl > 10-29 mL/min) *Enoxaparin/Lovenox 30 mg SQ BID (WT < 150 kg, CrCl > 30 mL/min) AND/OR *Sequential Compression Device (SCD) 5 or more Highest Order ONE of the following medications: *Heparin 5000 units SQ TID (Preferred with Epidurals) *Enoxaparin/Lovenox 40 mg SQ daily (WT < 150 kg, CrCl > 30 mL/min) *Enoxaparin/Lovenox 30 mg SQ daily (WT < 150 kg, CrCl > 10-29 mL/min) *Enoxaparin/Lovenox 30 mg SQ BID (WT < 150 kg, CrCl > 30 mL/min) AND *Sequential Compression Device (SCD) Assessment and Plan - Plan Assessment/plan: 1. Acute renal failure Creatinine 6.19, baseline approximately 1.2 Renal ultrasound pending Nephrology consulted, appreciate assistance 2. Cirrhosis/ascites Status post paracentesis 1 month ago Ultrasound guided paracentesis pending 3. Bilateral lower extremity cellulitis Likely secondary to edema Clindamycin IV 4. GERD/hyperlipidemia Continue home Protonix Holding statin as patient with transaminitis FEN N.p.o. Electrolytes: Monitor closely in the setting of renal failure, patient with a potassium of 6.0
[2017-10-02] MEDS ORDERED: Clindamycin Inj 900 MG in Sodium Chlor 0.9% Inj 100 ML IV.SIG SCH (06:30)
--- NOTE | 2017-10-02 08:16 | P.PN ---
Subjective Interval history: F/U MARIAMA. He is voiding. Patient states he has been having loose stools prior to admission on doxycycline no history of C. difficile. Reports his left leg cellulitis is improving on clindamycin. Denies leg pain but has bilateral calf tenderness on examination. Physical Exam Vital signs: Vital Signs 10/01/17 12:09 10/01/17 14:59 10/01/17 21:01 Temperature 97.5 F L Pulse Rate 83 83 78 Respiratory Rate 24 24 20 Blood Pressure 111/40 L 110/51 L 99/45 L Pulse Oximetry 96 100 99 10/01/17 22:45 10/01/17 23:00 10/02/17 03:00 Temperature Pulse Rate 73 78 80 Respiratory Rate 15 20 20 Blood Pressure 109/53 L 104/49 L 109/50 L Pulse Oximetry 100 99 99 10/02/17 07:19 Temperature Pulse Rate 92 H Respiratory Rate 18 Blood Pressure 137/61 Pulse Oximetry 99 Intake & Output 10/01/17 10/02/17 10/02/17 18:59 06:59 18:59 Intake Total 50 / 50 Balance 50 / 50 Weight 81.647 kg Intake: IV 50 / 50 Cleocin 900 mg/NS Premix 900 mg 50 / 50 In 50 ml @ 100 mls/hr IV.SIG Q8H [facility] Rx#:[id number] Narrative: Gen.: No acute distress Cardiovascular: Regular rate and rhythm. No murmurs, rubs or gallops. Respiratory: Lungs clear to auscultation bilaterally. No wheezes or rhonchi. Abdomen: Soft, nontender, positive distention. No peritoneal signs. Musculoskeletal: No gross deformities. 2+ pitting lower extremity edema, left greater than right. Skin: Improving left lower extremity erythema that extends from ankle to knee. Neuro: Sensory and motor grossly intact. Cranial nerves II through XII grossly intact. Psych: Appropriate mood and affect Results - Labs CBC & Chem 7: 10/02/17 06:21 10/02/17 06:21 Laboratory Results - last 24 hr 10/01/17 10/01/17 10/01/17 17:46 17:46 17:46 WBC 11.5 H RBC 3.39 L Hgb 11.6 L Hct 33.0 L MCV 97.3 MCH 34.2 H MCHC 35.2 RDW 17.5 H Plt Count 229 MPV 7.8 Neut % (Auto) 75.7 H Lymph % (Auto) 14.7 [place] % (Auto) 7.1 Eos % (Auto) 1.8 Baso % (Auto) 0.7 Neut # (Auto) 8.7 H Lymph # (Auto) 1.7 [place] # (Auto) 0.8 Eos # (Auto) 0.2 Baso # (Auto) 0.1 WBC Differential . Differential Comment Auto diff final PT 18.4 H INR 1.8 APTT 31.9 H Sodium 135 L Potassium 6.0 H Chloride 103 Carbon Dioxide 17.5 L Anion Gap 15 BUN 94 H Creatinine 6.19 H Estimated GFR 9 L Random Glucose 76 Calcium 9.0 Total Bilirubin 2.4 H AST 103 H ALT 46 Alkaline Phosphatase 87 Total Protein 6.7 Albumin 2.4 L - Imaging ITS Impressions Venous Doppler Study 10/01/17 15:34 CONCLUSION: 1. Nonocclusive thrombus. Renal vein on the right below the knee. 2. Popliteal cyst on the right. 3. Generalized edema. Abdomen/Bladder Ultrasound 10/02/17 00:00 CONCLUSION: 1. Bilateral echogenic kidneys concerning for medical renal disease. The kidneys are normal in size. 2. Right renal cysts. 3. Ascites. Paracentesis Ultrasound 10/02/17 00:00 CONCLUSION: Uncomplicated ultrasound-guided paracentesis. - Procedures Sono-guided paracentesis Assessment and Plan - Plan 1. Acute renal failure with hyperkalemia and acidosis. MARIAMA possibly prerenal vs ATN from infection/hypotension/ and GI losses. Creatinine 6.19, baseline approximately 1.2 Renal ultrasound shows no obstruction Nephrology consulted, appreciate assistance Start bicarb infusion status post insulin and sodium bicarb for hyperkalemia. Monitor telemetry 2. Cirrhosis/ascites Status post paracentesis 1 month ago Ultrasound guided paracentesis 6 L removed. Patient receiving IV albumin 3. Bilateral lower extremity cellulitis Likely secondary to edema Improving continue clindamycin IV 4. GERD/hyperlipidemia Continue home Protonix Holding statin as patient with transaminitis 5. Diarrhea patient on antibiotics for cellulitis. Check C. difficile and start Lactinex 6. Distal DVT will consult hematology for recommendations. 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
[2017-10-02] MEDS ORDERED: Senna/Docusate Sodium 8.6/50 MG Tablet PO SCH (09:00)
[2017-10-02 09:39] LABS: Baso # (Auto) 0.1 th/mm3 (0.0-0.2); Baso % (Auto) 0.8 % (0.0-2.0); Eos # (Auto) 0.2 th/mm3 (0.0-0.4); Eos % (Auto) 2.2 % (0.0-4.0); Hematocrit 34.8 % (39.0-51.0); Hemoglobin 11.7 gm/dL (13.0-17.0); Lymph # (Auto) 1.5 th/mm3 (1.0-4.8); Mean Corpuscular HGB Conc 33.7 % (32.0-36.0); Mean Corpuscular Hemoglobin 32.5 pg (27.0-34.0); Mean Corpuscular Volume 96.6 fL (80.0-100.0); Mean Platelet Volume 7.7 fL (7.0-11.0); Mono # (Auto) 0.8 th/mm3 (0.0-0.9); Mono % (Auto) 6.9 % (0.0-8.0); Neut # (Auto) 8.8 th/mm3 (1.8-7.7); Neut % (Auto) 77.1 % (16.0-70.0); Platelet Count 211 th/mm3 (150-450); Red Cell Distribution Width 17.6 % (11.6-17.2); White Blood Count 11.4 th/mm3 (4.0-11.0)
--- NOTE | 2017-10-02 09:49 | US ---
EXAM DATE: 10/02/2017 9:33 AM EDT AGE/SEX: 82 years / Male INDICATIONS: Increased lab values. CLINICAL DATA: This is the patient's initial encounter. Patient reports that signs and symptoms have been present for 2 days and indicates a pain score of 0/10. MEDICAL/SURGICAL HISTORY: Cirrhosis. Gastroesophageal reflux disease. Hypercholesterolemia. Kidney disease. Cellulitis. Ascites. Left wrist fracture. . Bilateral cataract surgery. Failed t otal knee replacement bilaterally. [place] [facility] [place] 09/08/[place]. . MEASUREMENTS: Right Kidney:__12.0 x 5.1 x 5.1 cm Left Kidney:__11.9 x 5.0 x 4.8 cm FINDINGS: Right Kidney: The right kidney is normal in size. The cortex is echogenic. There are multiple right r enal cyst including a 1.7 cm cyst at the upper pole and 1.8 cm cyst at the lower pole. No hydronephro sis is seen. Left Kidney: The left kidney is normal in size. The cortex is echogenic. No hydronephrosis is seen. Bladder: Within normal limits given the degree of distension. Other: There is at least a moderate amount of ascites seen. CONCLUSION: 1. Bilateral echogenic kidneys concerning for medical renal disease. The kidneys are normal in size. 2. Right renal cysts. 3. Ascites. Electronically signed by: Chad Odell MD 10/02/2017 9:47 AM EDT
[2017-10-02 10:05] LABS: Alanine Aminotransferase 48 U/L (12-78); Albumin 2.5 g/dL (3.4-5.0); Anion Gap 16 meq/L (5-15); Aspartate Aminotransferase 118 U/L (15-37); Calcium 9.4 mg/dL (8.5-10.1); Carbon Dioxide 16.7 meq/L (21.0-32.0); Chloride 103 meq/L (98-107); Glucose,Random 57 mg/dL (74-106); Sodium 136 meq/L (136-145)
--- NOTE | 2017-10-02 10:13 | P.RAD ---
Post Procedure Progress Note - Pre Procedure Diagnosis (1) Ascites - Post Procedure Diagnosis (1) Ascites - Procedure Information Supervising Radiologist: Sergio Galdamez MD Anesthesia: Local - Plan of Activity Patient to Unit: Other Patient Condition: Fair See PACS Report for procedural detail/treatment. Drainage Procedure Ultrasound right Paracentesis Thai Tube Size: 6 Drainage: Suction Fluid Description: Cloudy, Yellow
[2017-10-02 10:15] LABS: Alkaline Phosphatase 87 U/L (45-117); Blood Urea Nitrogen 105 mg/dL (7-18); Glomerular Filtration Rate 9 mL/min (>89); Total Protein 6.6 g/dL (6.4-8.2)
--- NOTE | 2017-10-02 10:56 | US ---
EXAM DATE: 10/02/2017 10:44 AM EDT AGE/SEX: 82 years / Male INDICATIONS: Ascites. CLINICAL DATA: This is the patient's subsequent encounter. Patient reports that signs and symptoms h ave been present for 1 month and indicates a pain score of 2/10. MEDICAL/SURGICAL HISTORY: Cirrhosis. Gastroesophageal reflux disease. Hypercholesterolemia. Kidney disease. Cellulitis. Ascites. Left wrist fracture. . Cataracts. 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 COMPARISON: [place], [place] KIDNEY/RENAL/BLADDER, 10/02/2017. . FLUID: Total volume of 7,300 cc of clear, yellow fluid was removed. Fluid was sent to lab for ordered studie s. . . TECHNIQUE: Ultrasound guidance for abdominal paracentesis. Paracentesis. The risks, benefits, and alternatives to ultrasound guided paracentesis were explained to the patient in detail including the risk of bleeding and infection. Written and verbal informed consent was obt ained. With the patient on the ultrasound table, ultrasound imaging was used to select the most appropriate approach for paracentesis. Overlying skin was prepped and draped in the usual sterile fashion and wi th a local anesthetic, a dermatotomy was made with an 11 blade scalpel. A 6 [place] [id number] ca theter was introduced into the peritoneal cavity and fluid was collected. Post procedure scanning reveals no hematoma or other complication. The patient tolerated the procedu re well and left the ultrasound suite in stable condition. CONCLUSION: Uncomplicated ultrasound-guided paracentesis. Electronically signed by: Sergio Galdamez MD 10/02/2017 10:55 AM EDT
[2017-10-02] MEDS: Clindamycin Inj 900 MG in Sodium Chlor 0.9% Inj 100 ML IV.SIG SCH ×3 (10:57→23:06)
[2017-10-02] MEDS ORDERED: Lidocaine PF 1% Inj 30 ML Vial ONE (11:02)
[2017-10-02] MEDS ORDERED: Albumin Human 25% Inj 200 ML IV.SIG ONE (11:06)
[2017-10-02 12:50] LABS: Total Protein,Peritoneal Fluid 1.5 gm/dL
[2017-10-02 13:16] LABS: Mesothelial,Peritoneal Fluid 16 %; Neutrophils,Peritoneal Fluid 14 %
[2017-10-02 13:18] LABS: RBC,Peritoneal Fluid 1340 /mm3 (0-0)
[2017-10-02 15:16] LABS: Lactate Dehydrogenase 417 U/L (87-241)
[2017-10-02] MEDS ORDERED: Dextrose 50% in Water 50 ML Vial IV.PUSH ONE (15:21)
--- NOTE | 2017-10-02 15:30 | P.CONNP ---
<Zully Magallanes - Last Filed: 10/02/17 15:02> History of Present Illness Service: Nephrology Consult date: 10/02/17 Requesting Physician: Leena Levi Reason for Consult: Acute kidney injury Primary Care Provider: PROVIDER NON STAFF Family Provider: Finesse Araujo Chief Complaint: LE redness/edema History of Present Illness: Patient is a 82 year old male with a past medical history of cirrhosis, GERD, hypercholesteremia, and acute kidney disease. Presented to emergency department with bilateral lower extremity edema and redness. Per primary he was put on Lasix and doxycycline. He was seen by [facility] Dr. Gibson yesterday for elevated BUN, Creatinine, and the lower extremity swelling. He was put on bumex and metalazone which he has not started yet. He reports fatigue, nausea, and loose stools for the last couple of days. He is s/p paracentesis this morning. Nephrology is consulted for elevated BUN, creatinine, and hyperkalemia. Creatinine of 6.32 and potassium level of 6. Per in Dr. Gibson 's office yesterday his creatinine was 5. He has also been on potassium replacement at home. Creatinine was noted to be 1.24 on 09/12/17. also had blood pressure documented and his blood pressure has been running low with SBP in the 80's to the 90's. So increase in creatinine is acute possibly prerenal vs ATN from infection/hypotension/ and GI losses. Review of Systems Constitutional: Reports fatigue, Reports lack of energy Cardiovascular: Reports shortness of breath, Reports shortness of breath with activity, Denies chest pain Respiratory: Denies cough Gastrointestinal: Reports abdominal pain Genitourinary: Denies urinary frequency, Denies urinary urgency Musculoskeletal: Reports muscle weakness Skin/Breast: Reports redness PMFSH - History History Provided By: Patient, Family Member - Medical History Medical History: Medical History (Last Reviewed 10/02/17 @ 08:43 by Javi Estrada) Ascites Cataract (lens) fragments in eye following cataract surgery, bilateral Cellulitis Cirrhosis of liver Failed total knee, left Failed total knee, right GERD (gastroesophageal reflux disease) Hypercholesteremia Kidney disease Left wrist fracture - Tobacco History Second Hand Smoke Exposure: No Tobacco Use In Past 30 Days: No Smoking Status: Former smoker Tobacco Type: Cigarettes - Alcohol History How Often Do You Have a Drink Containing Alcohol: Never - Substance Use History Substance History: No History of Abuse - Travel History Recent Travel in the [place] Within the Last 8 Weeks: No Recent Travel Out of the Country Within the Last 8 Weeks: No - Immunization History Tetanus Immunization: Unsure Hx Influenza Vaccine This Season: Yes Medications and Allergies Allergies Allergy/AdvReac Type Severity Reaction Status Date / Time ibuprofen AdvReac Severe cirrhosis Verified 10/01/17 14:51 morphine AdvReac Severe Nausea/Vomi Verified 10/01/17 14:51 ting naproxen AdvReac Severe cirrhosis Verified 10/01/17 14:51 Home Medications Medication Instructions Recorded Confirmed Type bumetanide 2 mg PO BID 10/01/17 10/01/17 History doxycycline hyclate 100 mg PO BID 10/01/17 10/01/17 History metolazone 10 mg PO DIRECTED 10/01/17 10/01/17 History pantoprazole 40 mg PO BID 10/01/17 10/01/17 History potassium chloride 10 meq PO BID 10/01/17 10/01/17 History pravastatin 10 mg PO DAILY 10/01/17 10/01/17 History Active Medications: Active Medications Al Hydroxide/Mg Hydroxide (Milk Of Magnesia Liq) 30 ml PO Q12H PRN PRN Reason: Mild Constipation Bisacodyl (Dulcolax Supp) 10 mg RECTAL DAILY PRN PRN Reason: SEVERE CONSITIPATION Clindamycin Phosphate 900 mg/ (Sodium Chloride) 106 mls @ 100 mls/hr IV.SIG Q8H [facility] Last Admin: 10/02/17 10:57 Dose: 100 mls/hr Lactulose (Lactulose Liq) 30 ml PO DAILY PRN PRN Reason: SEVERE CONSITIPATION Ondansetron HCl (Zofran Odt) 4 mg PO Q6H PRN PRN Reason: NAUSEA OR VOMITING Pantoprazole Sodium (Protonix) 40 mg PO BID [facility] Last Admin: 10/02/17 10:57 Dose: 40 mg Senna/Docusate Sodium (Laine-Colace) 1 tab PO BID [facility] Last Admin: 10/02/17 10:57 Dose: 1 tab Sennosides (Senokot) 17.2 mg PO Q12H PRN PRN Reason: Moderate Constipation Temazepam (Restoril) 15 mg PO HS PRN PRN Reason: INSOMNIA Exam Vital signs: Vital Signs 10/01/17 21:01 10/01/17 22:45 10/01/17 23:00 Temperature Pulse Rate 78 73 78 Respiratory Rate 20 15 20 Blood Pressure 99/45 L 109/53 L 104/49 L Pulse Oximetry 99 100 99 10/02/17 03:00 10/02/17 07:19 10/02/17 09:18 Temperature 97.9 F 97.1 F L Pulse Rate 80 92 H 96 H Respiratory Rate 20 18 18 Blood Pressure 109/50 L 137/61 114/58 L Pulse Oximetry 99 99 97 10/02/17 10:30 10/02/17 10:54 10/02/17 14:00 Temperature 97.1 F L 97.1 F L Pulse Rate 89 95 H 69 Respiratory Rate 18 18 22 Blood Pressure 92/50 L 95/41 L 136/87 Pulse Oximetry 98 97 Intake & Output 10/01/17 10/02/17 10/02/17 18:59 06:59 18:59 Intake Total 50 / 50 Balance 50 / 50 Weight 81.647 kg Intake: IV 50 / 50 Cleocin 900 mg/NS Premix 900 mg 50 / 50 In 50 ml @ 100 mls/hr IV.SIG Q8H [facility] Rx#:[id number] - Constitutional no acute distress - Routine HEENT Exam Head: Present: normocephalic - Routine Neck Exam Absent: JVD - Routine Respiratory Exam Present: decreased breath sounds. Absent: rales, rhonchi - Routine Cardiovascular Exam Present: RRR - Routine Abdominal Exam Present: soft, tenderness - Routine Extremities Exam Present: edema - Routine Skin Exam Present: erythema - Routine Neurological Exam Present: alert poor historian Results - Lab Results 10/02/17 06:21 10/02/17 06:21 Most recent lab results Calcium 9.4 mg/dL (8.5-10.1) 10/02/17 06:21 - Image Kidney/bladder ultrasound: pending Assessment and Plan - Assessment (1) Acute kidney injury Code(s): N17.9 - Acute kidney failure, unspecified Status: Acute Plan: Acute kidney injury with a creatinine of 6.32 and potassium level of 6. Per in Dr. Gibson's office yesterday his creatinine was 5. Creatinine was noted to be 1.24 on 09/12/17. MARIAMA possibly prerenal vs ATN from infection/hypotension/ and GI losses. Avoid nephrotoxins and hypotension Continue to hold diuretics Renal ultrasound is pending UA, urine osmolarity, sodium, and creatinine ordered Hyperkalemia treated with sodium bicarbonate/D50/insulin No urgent need for dialysis, discussed the possible need if improvement is not noted Will monitor urinary output and BMP Strict I+o ordered Labs in AM (2) Ascites Code(s): R18.8 - Other ascites Status: Acute Plan: S/p paracentesis today (3) Cellulitis Code(s): L03.90 - Cellulitis, unspecified Status: Acute Plan: Continue antibiotics <Miguelito Sellersul Q - Last Filed: 10/02/17 18:55> History of Present Illness Primary Care Provider: PROVIDER NON STAFF Family Provider: Finesse Araujo [facility] - Medical History Medical History: Medical History (Last Reviewed 10/02/17 @ 08:43 by Javi Estrada) Ascites Cataract (lens) fragments in eye following cataract surgery, bilateral Cellulitis Cirrhosis of liver Failed total knee, left Failed total knee, right GERD (gastroesophageal reflux disease) Hypercholesteremia Kidney disease Left wrist fracture Medications and Allergies Active Medications: Active Medications Bisacodyl (Dulcolax Supp) 10 mg RECTAL DAILY PRN PRN Reason: SEVERE CONSITIPATION Clindamycin Phosphate 900 mg/ (Sodium Chloride) 106 mls @ 100 mls/hr IV.SIG Q8H [facility] Last Admin: 10/02/17 17:30 Dose: 100 mls/hr Sodium Bicarbonate 50 meq/ (Sodium Chloride) 1,000 mls @ 84 mls/hr IV.CONT .[id number] [facility] Lactobacillus Acidophilus (Lactinex) 1 tab PO TID [facility] Lactulose (Lactulose Liq) 30 ml PO DAILY PRN PRN Reason: SEVERE CONSITIPATION Ondansetron HCl (Zofran Odt) 4 mg PO Q6H PRN PRN Reason: NAUSEA OR VOMITING Pantoprazole Sodium (Protonix) 40 mg PO BID [facility] Last Admin: 10/02/17 10:57 Dose: 40 mg Sennosides (Senokot) 17.2 mg PO Q12H PRN PRN Reason: Moderate Constipation Temazepam (Restoril) 15 mg PO HS PRN PRN Reason: INSOMNIA Exam Vital signs: Vital Signs 10/01/17 21:01 10/01/17 22:45 10/01/17 23:00 Temperature Pulse Rate 78 73 78 Respiratory Rate 20 15 20 Blood Pressure 99/45 L 109/53 L 104/49 L Pulse Oximetry 99 100 99 10/02/17 03:00 10/02/17 07:19 10/02/17 09:18 Temperature 97.9 F 97.1 F L Pulse Rate 80 92 H 96 H Respiratory Rate 20 18 18 Blood Pressure 109/50 L 137/61 114/58 L Pulse Oximetry 99 99 97 10/02/17 10:30 10/02/17 10:54 10/02/17 14:00 Temperature 97.1 F L 97.1 F L Pulse Rate 89 95 H 69 Respiratory Rate 18 18 22 Blood Pressure 92/50 L 95/41 L 136/87 Pulse Oximetry 98 97 Intake & Output 10/01/17 10/02/17 10/02/17 18:59 06:59 18:59 Intake Total 50 / 50 106 / 106 Balance 50 / 50 106 / 106 Weight 81.647 kg Intake: IV 50 / 50 106 / 106 Cleocin 900 mg/NS Premix 900 mg 50 / 50 In 50 ml @ 100 mls/hr IV.SIG Q8H [facility] Rx#:[id number] Cleocin Inj 900 MG In NS Inj 106 / 106 100 ML @ 100 mls/hr IV.SIG Q8H [facility] Rx#:[id number] Results - Lab Results 10/02/17 06:21 10/02/17 06:21 Most recent lab results Calcium 9.4 mg/dL (8.5-10.1) 10/02/17 06:21 Assessment and Plan - Assessment (1) Acute kidney injury Code(s): N17.9 - Acute kidney failure, unspecified Status: Acute (2) Ascites Code(s): R18.8 - Other ascites Status: Acute (3) Cellulitis Code(s): L03.90 - Cellulitis, unspecified Status: Acute - Attending Attestation Patient seen and examined, agree with above. Has chronic kidney disease and MARIAMA now. Possibly has pre renal/ATN. Continue gentle hydration. Got treatment for Hyperkalemia. If not better, possible HD.
--- NOTE | 2017-10-02 17:03 | P.DCO ---
- Physical Therapy Order: Evaluate and treat, Improve ambulation, Strength and gait training - Home Health Nursing Order: Medical education, Medication education-adverse effect, Nursing assessment with vital signs - Certification I have seen patient Robby Khan on 10/02/17. My clinical findings support the need for the requested home health care services because: Patient has SOB, Deconditioned with increased weakness I certify that my clinical findings support that this patient is homebound because: Unsteady gait/balance
[2017-10-02 18:55] LABS: Creatinine,Urine Random 95 mg/dL (27-300)
[2017-10-02] MEDS: Lactobacillus Acidophilus/L. Spores Tablet PO SCH (18:55)
[2017-10-02 19:31] LABS: Amorphous Sediment,Urine Rare /hpf; Bacteria,Urine Moderate /hpf; Bilirubin,Urine Negative (Negative); Clarity,Urine Cloudy (Clear); Color,Urine Yellow (Yellw/Straw); Glucose,Urine (UA) Negative (Negative); Hyaline Casts,Urine 55 /lpf (0-3); Leukocyte Esterase,Urine Small (Negative); Nitrite,Urine Negative (Negative); Specific Gravity,Urine 1.011 (1.002-1.035); Squamous Epithelial Cell,Urine 3 /hpf (0-5)
[2017-10-02] MEDS: Sodium Bicarbonate 8.4% Inj 50 MEQ in Sodium Chloride 0.45 % Inj 950 ML IV.CONT SCH (23:07)
[2017-10-03 05:55] LABS: Baso # (Auto) 0.1 th/mm3 (0.0-0.2); Baso % (Auto) 0.9 % (0.0-2.0); Eos # (Auto) 0.2 th/mm3 (0.0-0.4); Eos % (Auto) 2.7 % (0.0-4.0); Hematocrit 32.1 % (39.0-51.0); Hemoglobin 11.1 gm/dL (13.0-17.0); Lymph # (Auto) 1.5 th/mm3 (1.0-4.8); Mean Corpuscular HGB Conc 34.7 % (32.0-36.0); Mean Corpuscular Hemoglobin 33.5 pg (27.0-34.0); Mean Corpuscular Volume 96.7 fL (80.0-100.0); Mean Platelet Volume 7.8 fL (7.0-11.0); Mono # (Auto) 0.7 th/mm3 (0.0-0.9); Mono % (Auto) 7.5 % (0.0-8.0); Neut # (Auto) 6.3 th/mm3 (1.8-7.7); Neut % (Auto) 71.9 % (16.0-70.0); Platelet Count 146 th/mm3 (150-450); Red Blood Count 3.32 mil/mm3 (4.50-5.90); Red Cell Distribution Width 17.3 % (11.6-17.2); White Blood Count 8.8 th/mm3 (4.0-11.0)
[2017-10-03 06:22] LABS: Alanine Aminotransferase 48 U/L (12-78); Albumin 2.8 g/dL (3.4-5.0); Alkaline Phosphatase 78 U/L (45-117); Anion Gap 14 meq/L (5-15); Aspartate Aminotransferase 115 U/L (15-37); Blood Urea Nitrogen 118 mg/dL (7-18); Calcium 8.5 mg/dL (8.5-10.1); Carbon Dioxide 17.9 meq/L (21.0-32.0); Chloride 103 meq/L (98-107); Glomerular Filtration Rate 8 mL/min (>89); Glucose,Random 85 mg/dL (74-106); Magnesium 3.2 mg/dL (1.5-2.5); Phosphorus 7.3 mg/dL (2.5-4.9); Potassium 5.5 meq/L (3.5-5.1); Sodium 135 meq/L (136-145); Total Protein 6.1 g/dL (6.4-8.2)
[2017-10-03] MEDS: Sodium Bicarbonate 8.4% Inj 50 MEQ in Sodium Chloride 0.45 % Inj 950 ML IV.CONT SCH ×2 (07:30→22:43)
[2017-10-03] MEDS: Clindamycin Inj 900 MG in Sodium Chlor 0.9% Inj 100 ML IV.SIG SCH ×3 (07:30→22:44)
--- NOTE | 2017-10-03 08:17 | P.CON ---
History of Present Illness Service: Hematology/oncology Consult date: 10/03/17 Reason for Consult: Nonocclusive thrombosis involving the right peroneal vein. Primary Care Provider: PROVIDER NON STAFF Family Provider: Finesse Araujo Chief Complaint: Swelling of the legs and redness of the legs. History of Present Illness: Mr. Khan is a very pleasant 82-year-old man, he is presently a resident of [place], [place]. 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 The patient reports having smoked about a pack and a half a day for 8 years while in the , he reports having been an occasional drinker but has not drank in about 18 years. The patient and his have adopted 3 sons, they have no biologic children of their own. Patient reports being in his usual fair state of health up until a few months ago when he developed swelling and redness of his legs, he reports being hospitalized at this facility at that time and was assessed to have cellulitis. He reports being treated with intravenous and then oral antibiotics to which he had a good response and resolution of the symptoms. The patient reports the symptoms recurred about 10 days ago, he reported the symptoms of redness and swelling of the legs to his primary care physician and was initiated on oral antibiotics. The patient reports the redness in his right leg decreased significantly but the redness in his left leg persisted. He also had persistent swelling of the legs as well as abdominal distention and bloating. He was advised hospitalization for intravenous antibiotics which is why he presented to [facility] on 10/01/2017. Evaluation revealed cellulitis, the patient has been initiated on antibiotic therapy and has also undergone ultrasound Doppler studies of the lower extremities. The patient was found to have a non-occlusive thrombus involving the right peroneal vein (a lateral deep vein distal and lateral to the knee which is a tributary to the popliteal vein). The hematology service is been asked to see him for management of this nonocclusive thrombosis. The patient does have significant medical comorbid conditions including nonalcoholic steatohepatitis (BOYKIN), previous history of diabetes and also previous history of upper GI bleeding. Patient tells me he had massive GI bleeding while he was traveling through [place], [place]. He reports being hospitalized at the [facility] for several days where he underwent GI procedures with what he describes as "clipping of internal hemorrhoids close quotations. Review of Systems Constitutional: Reports lack of energy, Reports weight gain, Reports weight loss , Reports other (Weight fluctuates.), Denies anorexia, Denies body ache(s), Denies chills, Denies daytime sleepiness, Denies excessive sweating, Denies fatigue, Denies fever(s), Denies headache(s), Denies increased appetite, Denies malaise, Denies night sweats, Denies weakness Eyes: Denies blind spots, Denies blurry vision, Denies bulging eyes, Denies change in vision, Denies double vision, Denies discharge, Denies dry eyes, Denies floaters, Denies irritation, Denies itchy eyes, Denies loss of vision, Denies pain, Denies requires corrective lenses, Denies sensitivity to light, Denies other Ears, Nose, Mouth, and Throat: Denies abnormal hearing, Denies bleeding gums, Denies bad breath, Denies change in voice, Denies difficulty swallowing, Denies dizziness, Denies ear pain, Denies facial pain, Denies headache(s) Cardiovascular: Denies chest pain, Denies chest pain at rest, Denies chest pain with activity, Denies fainting, Denies fast heart rate, Denies irregular heart rhythm, Denies rapid, pounding, or irregular heartbeat, Denies shortness of breath with activity, Denies shortness of breath when lying down, Denies shortness of breath causing sudden awakening Respiratory: Denies change in phlegm color, Denies chest congestion, Denies cough, Denies coughing up blood, Denies excessive phlegm production Gastrointestinal: Denies black, tarry stools, Denies bright, red blood in stools , Denies change in bowel habits, Denies pain with swallowing, Denies vomiting Comments: Abdominal distention. Genitourinary: Denies blood in urine, Denies decreased urination, Denies difficulty urinating Musculoskeletal: Reports abnormal walking, Reports joint pain, Denies back pain , Denies body aches, Denies decreased muscle mass Comments: Lower back pain and knee pain. Skin/Breast: Denies acne, Denies bleeding lesions, Denies change in skin color, Denies changing lesions, Denies dry skin Neurologic: Reports abnormal walking (Difficulty and pain with walking due to leg swelling.), Denies abnormal hearing, Denies abnormal movements, Denies abnormal speech, Denies burning sensations, Denies confusion, Denies dizziness, Denies fainting, Denies frequent falls, Denies headache(s), Denies lack of coordination, Denies localized weakness, Denies loss of vision, Denies memory loss, Denies numbness Psychiatric: Denies abnormal sleep pattern, Denies anxiety, Denies behavioral changes Endocrine: Denies cold intolerance Hematologic/Lymphatic: Denies easy bleeding Allergic/Immunologic: Denies GI upset with certain foods PMFSH - History History Provided By: Patient, Family Member - Medical History Medical History: Medical History (Last Updated 10/03/17 @ 08:04 by Artem Lee MD) Abnormal findings on esophagogastroduodenoscopy (EGD) Ascites Cataract (lens) fragments in eye following cataract surgery, bilateral Cellulitis Cirrhosis of liver GERD (gastroesophageal reflux disease) History of diabetes mellitus Hypercholesteremia Kidney disease Left wrist fracture Non-occlusive thrombus Nonalcoholic steatohepatitis (BOYKIN) Upper GI bleed - Surgical History Surgical History: Surgical History (Last Updated 10/03/17 @ 08:04 by Artem Lee MD) History of left knee replacement Status post right knee replacement - Tobacco History Second Hand Smoke Exposure: No Tobacco Use In Past 30 Days: No Smoking Status: Former smoker Tobacco Type: Cigarettes - Alcohol History How Often Do You Have a Drink Containing Alcohol: Never - Substance Use History Substance History: No History of Abuse - Travel History Recent Travel in the [place] Within the Last 8 Weeks: No Recent Travel Out of the Country Within the Last 8 Weeks: No - Immunization History Tetanus Immunization: Unsure Hx Influenza Vaccine This Season: Yes Medications and Allergies Active Medications: Active Medications Bisacodyl (Dulcolax Supp) 10 mg RECTAL DAILY PRN PRN Reason: SEVERE CONSITIPATION Clindamycin Phosphate 900 mg/ (Sodium Chloride) 106 mls @ 100 mls/hr IV.SIG Q8H [facility] Last Admin: 10/03/17 07:30 Dose: 100 mls/hr Sodium Bicarbonate 50 meq/ (Sodium Chloride) 1,000 mls @ 84 mls/hr IV.CONT .[id number] [facility] Last Admin: 10/03/17 07:30 Dose: Not Given Lactobacillus Acidophilus (Lactinex) 1 tab PO TID [facility] Last Admin: 10/02/17 18:55 Dose: Not Given Lactulose (Lactulose Liq) 30 ml PO DAILY PRN PRN Reason: SEVERE CONSITIPATION Ondansetron HCl (Zofran Odt) 4 mg PO Q6H PRN PRN Reason: NAUSEA OR VOMITING Pantoprazole Sodium (Protonix) 40 mg PO BID [facility] Last Admin: 10/02/17 23:04 Dose: 40 mg Sennosides (Senokot) 17.2 mg PO Q12H PRN PRN Reason: Moderate Constipation Temazepam (Restoril) 15 mg PO HS PRN PRN Reason: INSOMNIA Allergies Allergy/AdvReac Type Severity Reaction Status Date / Time ibuprofen AdvReac Severe cirrhosis Verified 10/01/17 14:51 morphine AdvReac Severe Nausea/Vomi Verified 10/01/17 14:51 ting naproxen AdvReac Severe cirrhosis Verified 10/01/17 14:51 Home Medications Medication Instructions Recorded Confirmed Type bumetanide 2 mg PO BID 10/01/17 10/01/17 History doxycycline hyclate 100 mg PO BID 10/01/17 10/01/17 History metolazone 10 mg PO DIRECTED 10/01/17 10/01/17 History pantoprazole 40 mg PO BID 10/01/17 10/01/17 History potassium chloride 10 meq PO BID 10/01/17 10/01/17 History pravastatin 10 mg PO DAILY 10/01/17 10/01/17 History Physical Exam Vital signs: Vital Signs 10/02/17 09:18 10/02/17 10:30 10/02/17 10:54 Temperature 97.1 F L 97.1 F L 97.1 F L Pulse Rate 96 H 89 95 H Respiratory Rate 18 18 18 Blood Pressure 114/58 L 92/50 L 95/41 L Pulse Oximetry 97 98 97 10/02/17 14:00 10/02/17 20:00 10/03/17 00:00 Temperature 97.3 F L 97.5 F L Pulse Rate 69 77 74 Respiratory Rate 22 18 18 Blood Pressure 136/87 100/52 L 99/56 L Pulse Oximetry 98 96 10/03/17 04:00 Temperature 97.4 F L Pulse Rate 79 Respiratory Rate 18 Blood Pressure 97/51 L Pulse Oximetry 92 L Intake & Output 10/02/17 10/03/17 10/03/17 18:59 06:59 18:59 Intake Total 412 / 412 586 / 586 Balance 412 / 412 586 / 586 Intake: IV 412 / 412 106 / 106 Flexbumin 25% Inj 200 ML @ 60 200 / 200 mls/hr IV.SIG ONCE ONE Rx#: [id number] Cleocin Inj 900 MG In NS Inj 212 / 212 106 / 106 100 ML @ 100 mls/hr IV.SIG Q8H REJI Rx#:[id number] Oral 480 / 480 Other: # Voids 3 # Bowel Movements 1 - Constitutional no acute distress - Routine HEENT Exam Head: Present: normocephalic, atraumatic. Absent: cushingoid faces, abrasion Eye: Present: EOMI, PERRL, conjunctivae pink. Absent: normal accommodation, conjunctival icterus, scleral injection ENT: Absent: mucous membranes moist - Routine Neck Exam Absent: supple, full ROM, JVD, carotid bruit, normal carotid upstroke - Routine Respiratory Exam Present: CTA bilaterally. Absent: accessory muscle use, patient mechanically ventilated, decreased breath sounds, prolonged expiratory phase, rales, respiratory distress, rhonchi, stridor, wheezes, crackles, distant breath sounds , diminished air movement - Routine Cardiovascular Exam Present: RRR, S1, S2. Absent: murmur, gallop, rubs, S3, S4 - Routine Abdominal Exam Present: soft, distended. Absent: tenderness, rebound, guarding, rigid, organomegaly (No obvious organ enlargement.), mass, hernia, bruit, surgical scars, wound - Routine Extremities Exam Present: edema. Absent: calf tenderness, palpable cord, Laureen's sign, tenderness, joint swelling Comments: Bilateral pitting lower extremity edema. Redness/erythema of the left leg distal to the knee. - Routine Skin Exam Present: intact, erythema (Left lower extremity distal to the knee.). Absent: cyanosis - Routine Neurological Exam Present: alert, oriented X3, CN II-XII intact. Absent: sensory deficit, motor deficit - Detailed Neurological Exam: Coma Scale Eye Opening: Spontaneous - Routine Psychiatric Exam Present: normal affect Assessment and Plan - Assessment (1) Lower extremity deep venous thrombosis Code(s): I82.409 - Acute embolism and thrombosis of unspecified deep veins of unspecified lower extremity Status: Chronic Plan: Ultrasound Doppler results reviewed. The patient has a nonocclusive peroneal vein thrombosis distal to the left knee. Though the patient has right lower extremity edema I do not suspect the nonocclusive thrombosis in the peroneal vein is contributing in any meaningful way to the edema. The patient's edema seems to fluctuate with the volume of ascites. Additionally the patient has similar edema in the left leg where he was found to have no evidence of thrombosis. Furthermore, given the nonocclusive nature of this thrombosis and no previous ultrasound Doppler to compare with the acuity/chronicity of the current peroneal vein thrombosis is not certain. It would be my assessment that the current thrombosis may very well be a chronic issue and not truly be contributing to his current symptoms. It would be my recommendation to treat the patient conservatively as an; by not introducing therapeutic anticoagulation in this patient with hepatic cirrhosis, poor hepatic synthetic function with baseline elevations in PT/APTT and INR levels. It should be noted that the patient gives a very clear history of upper GI bleeding which he describes as bloody stools and dark tarry stools related to "internal hemorrhoids in his esophagus "which needed to be clipped. He reports this occurred about 3 years ago and he was traveling through [place], [place] at that time. He was treated at the [facility]. I would advise repeating ultrasound Doppler studies of the lower extremity in the upcoming 4-6 weeks to assess for stability. There is evidence of progression it may be reasonable to consider some sort of therapeutic intervention. Because the thrombosis did not appear to be acute on ultrasound Doppler studies I would estimate the risk of thromboembolism to be quite low. (2) History of upper gastrointestinal bleeding Code(s): Z87.19 - Personal history of other diseases of the digestive system Status: Resolved Plan: Occurred about 2 years ago, patient describes large volume bleeding requiring EGD with a procedure he describes as "clipping of internal hemorrhoids in the esophagus ". (3) Abnormal coagulation profile Code(s): R79.1 - Abnormal coagulation profile Status: Chronic Plan: Elevated baseline PT, PTT and INR levels most likely related to poor hepatic synthetic function. These elevations will to some extent "auto anticoagulate "the patient. (4) Nonalcoholic steatohepatitis (BOYKIN) Code(s): K75.81 - Nonalcoholic steatohepatitis (BOYKIN) Status: Chronic Plan: With resultant recurrent ascites. Hepatic synthetic dysfunction. And reported esophageal varices. I suspect the hepatic cirrhosis and resultant ascites is also contributing to his lower extremity edema. - Plan Plan: 1. 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 In my assessment the patient's risk of adverse outcomes with even low intensity anticoagulation would put him at a significantly increased risk of bleeding given his poor hepatic synthetic function, baseline elevation in coagulation profile as well as previous history of massive upper GI bleeding. I will arrange outpatient follow-up with myself in my [place] clinic with repeat ultrasound Doppler studies to reevaluate the chronic appearing left lower extremity deep venous thrombosis. Thank you for involving oncology in the care of this patient. Discussed Condition With: The patient.
[2017-10-03] MEDS: Lactobacillus Acidophilus/L. Spores Tablet PO SCH ×3 (09:07→18:43)
[2017-10-03] MEDS ORDERED: RESP: Albuterol Concentrated 2.5 MG/0.5 ML Neb NEB ONE (11:00)
[2017-10-03] MEDS ORDERED: Heparin 10,000 UNITS/10 ML Vial (for IV use) ONE (12:19)
[2017-10-03] MEDS ORDERED: Heparin Central Flush 100 UNIT/ML 5 ML Vial IV.FLUSH PRN (12:41)
--- NOTE | 2017-10-03 12:44 | P.RAD ---
Post Procedure Progress Note - Pre Procedure Diagnosis (1) Acute kidney injury - Post Procedure Diagnosis (1) Acute kidney injury - Procedure Information Procedure Date: 10/03/17 Supervising Radiologist: Geoff Londono Jr, MD Estimated blood loss (mL): 0 Anesthesia: Local - Plan of Activity Patient to Unit: Nursing Unit Patient Condition: Good See PACS Report for procedural detail/treatment. [facility] Radiology Procedures right Internal Jugular Hemodialysis Catheter Non-Tunneled Device: dual lumen Chinese: 14 - Additional Detail Findings: Placed RIJ Vascath. In good position and functions well. OK to use.
[2017-10-03 13:08] LABS: Amylase, Body Fluid 18 U/L
--- NOTE | 2017-10-03 14:38 | IR ---
EXAM DATE: 10/03/2017 1:10 PM EDT AGE/SEX: 82 years / Male INDICATIONS: Patient presents with acute renal injury in need of dialysis catheter placement. CLINICAL DATA: This is the patient's initial encounter. Patient reports that signs and symptoms have been present for 2 days and indicates a pain score of 0/10. MEDICAL/SURGICAL HISTORY: . Ascites Cataract Cellulitis Cirrhosis GERD Kidney disease . Left w rist Failed left and right total knee COMPARISON: No prior exams available for comparison. FLUORO TIME (min): 0.26 IMAGE SERIES: 2 ACCESS SITE: Right internal jugular vein MEDICATION(S): 2,200 Heparin IV DEVICE(S): 14 Canadian double lumen 15cm Schon catheter . . PROCEDURE : 1. Ultrasound guided venipuncture. 2. Fluoroscopic guidance. 3. Central line placement. The risks, benefits and alternatives to the procedure were explained and verbal and written consent w as obtained. The site was prepped in sterile fashion. Full sterile technique was used, including ca p, mask, sterile gloves and gown and a large sterile sheet. Hand hygiene and 2% chlorhexidine prep w as utilized per protocol for cutaneous antisepsis with appropriate dry time for site. Sterile gel an d sterile probe cover were utilized for ultrasound guidance. The skin and subcutaneous tissues were infiltrated with local anesthetic solution. A suitable site a carmen the vein was selected with ultrasound and fluoroscopic guidance. A small incision was made. Th e vein was accessed under direct ultrasound visualization using the micropuncture technique. The eric ropuncture set was exchanged for a 0.035 wire. The tract was dilated. The catheter was advanced int o position under direct fluoroscopic visualization, and was advanced with the tip at the junction of the superior vena cava and rt atrium. The catheter was fixed in place with suture and a sterile dres sing was applied. The patient tolerated the procedure well and there were no complications. CONCLUSION: 1. Uncomplicated line placement as above. Electronically signed by: Geoff Londono MD 10/03/2017 2:37 PM EDT
[2017-10-03] MEDS ORDERED: Albumin Human 25% Inj 100 ML IV.SIG PRN (15:15)
[2017-10-03] MEDS ORDERED: Heparin 10,000 UNITS/10 ML Vial (for IV use) OTHER PRN (15:15)
[2017-10-03] MEDS ORDERED: Heparin 10,000 UNITS/10 ML Vial (for IV use) IV.FLUSH PRN (15:15)
[2017-10-03] MEDS ORDERED: Sod Chloride 0.9% Inj 1,000 ML OTHER PRN ×2 (15:15)
[2017-10-03] MEDS ORDERED: Sod Chloride 0.9% Inj 1,000 ML IV.CONT PRN (15:15)
[2017-10-03] MEDS ORDERED: Gelatin 12 MM/7 MM Topical Foam TOPICAL PRN (15:15)
--- NOTE | 2017-10-03 15:15 | P.PNNP ---
Subjective Interval history: Patient seen in AM , alert, siting on chair, no SOB, not in distress. Physical Exam Vital signs: Vital Signs 10/02/17 20:00 10/03/17 00:00 10/03/17 04:00 Temperature 97.3 F L 97.5 F L 97.4 F L Pulse Rate 77 74 79 Respiratory Rate 18 18 18 Blood Pressure 100/52 L 99/56 L 97/51 L Pulse Oximetry 98 96 92 L 10/03/17 08:00 10/03/17 12:00 Temperature 97.1 F L 97.2 F L Pulse Rate 73 71 Respiratory Rate 18 17 Blood Pressure 88/49 L 94/45 L Pulse Oximetry 100 91 L Intake & Output 10/02/17 10/03/17 10/03/17 18:59 06:59 18:59 Intake Total 412 / 412 586 / 586 Balance 412 / 412 586 / 586 Intake: IV 412 / 412 106 / 106 Flexbumin 25% Inj 200 ML @ 60 200 / 200 mls/hr IV.SIG ONCE ONE Rx#: [id number] Cleocin Inj 900 MG In NS Inj 212 / 212 106 / 106 100 ML @ 100 mls/hr IV.SIG Q8H REJI Rx#:[id number] Oral 480 / 480 Other: # Voids 3 # Bowel Movements 1 Narrative: Gen.: Patient is alert, no SOB, No acute distress Cardiovascular: Regular rate and rhythm. No murmurs, rubs or gallops. Respiratory: Lungs clear to auscultation bilaterally. No wheezes or rhonchi. Abdomen: Soft, nontender, positive distention. No peritoneal signs. Musculoskeletal: No gross deformities. 2+ pitting lower extremity edema, left greater than right. Skin: Improving left lower extremity erythema that extends from ankle to knee.Associated with erythema. Neuro: Sensory and motor grossly intact. Cranial nerves II through XII grossly intact. Psych: Appropriate mood and affect Assessment and Plan - Assessment (1) Acute kidney injury Code(s): N17.9 - Acute kidney failure, unspecified Status: Acute Plan: (1) Acute kidney injury Code(s): N17.9 - Acute kidney failure, unspecified Status: Acute Plan: Acute kidney injury with a creatinine of 6.32 and potassium level of 6. Per in Dr. Gibson's office, his creatinine was 5. Creatinine was noted to be 1.24 on 09/12/17. MARIAMA possibly prerenal vs ATN from infection/hypotension/ and GI losses. Avoid nephrotoxins and hypotension Continue to hold diuretics Renal ultrasound is pending UA, urine osmolarity, sodium, and creatinine ordered Hyperkalemia treated with sodium bicarbonate/D50/insulin Still has elevated Creatinine and K is elebvated but better from yesterday. Non oliguric. Need to start on HD. D/W the patient and , to get Vascath and start HD. Watch for renal recovery. (2) Ascites Code(s): R18.8 - Other ascites Status: Acute Plan: S/p paracentesis today (3) Cellulitis Code(s): L03.90 - Cellulitis, unspecified Status: Acute Plan: Continue antibiotics (2) Ascites Code(s): R18.8 - Other ascites Status: Acute Plan: S/p paracentesis today (3) Cellulitis Code(s): L03.90 - Cellulitis, unspecified Status: Acute Plan: Continue antibiotics
--- NOTE | 2017-10-03 17:49 | P.PN ---
Subjective Interval history: Follow-up renal failure. Underwent Vas-Cath and emergent hemodialysis today. Patient has no complaints no more diarrhea Physical Exam Vital signs: Vital Signs 10/02/17 20:00 10/03/17 00:00 10/03/17 04:00 Temperature 97.3 F L 97.5 F L 97.4 F L Pulse Rate 77 74 79 Respiratory Rate 18 18 18 Blood Pressure 100/52 L 99/56 L 97/51 L Pulse Oximetry 98 96 92 L 10/03/17 08:00 10/03/17 12:00 Temperature 97.1 F L 97.2 F L Pulse Rate 73 71 Respiratory Rate 18 17 Blood Pressure 88/49 L 94/45 L Pulse Oximetry 100 91 L Intake & Output 10/02/17 10/03/17 10/03/17 18:59 06:59 18:59 Intake Total 412 / 412 586 / 586 Output Total 1000 / 1000 Balance 412 / 412 586 / 586 -1000 / -1000 Intake: IV 412 / 412 106 / 106 Flexbumin 25% Inj 200 ML @ 60 200 / 200 mls/hr IV.SIG ONCE ONE Rx#: [id number] Cleocin Inj 900 MG In NS Inj 212 / 212 106 / 106 100 ML @ 100 mls/hr IV.SIG Q8H REJI Rx#:[id number] Oral 480 / 480 Output: Hemodialysis Amount 1000 / 1000 Other: # Voids 3 # Bowel Movements 1 Narrative: Gen.: Patient is alert, no SOB, No acute distress Cardiovascular: Regular rate and rhythm. No murmurs, rubs or gallops. Respiratory: Lungs clear to auscultation bilaterally. No wheezes or rhonchi. Abdomen: Soft, nontender, positive distention. No peritoneal signs. Musculoskeletal: No gross deformities. 2+ pitting lower extremity edema, left greater than right. Skin: Improving left lower extremity erythema that extends from ankle to knee. Neuro: Sensory and motor grossly intact. Cranial nerves II through XII grossly intact. Results - Labs CBC & Chem 7: 10/03/17 04:50 10/03/17 04:53 Laboratory Results - last 24 hr 10/02/17 10/02/17 10/02/17 09:43 18:17 18:17 WBC RBC Hgb Hct MCV MCH MCHC RDW Plt Count MPV Neut % (Auto) Lymph % (Auto) [place] % (Auto) Eos % (Auto) Baso % (Auto) Neut # (Auto) Lymph # (Auto) [place] # (Auto) Eos # (Auto) Baso # (Auto) WBC Differential Differential Comment Sodium Potassium Chloride Carbon Dioxide Anion Gap BUN Creatinine Estimated GFR Random Glucose Calcium Phosphorus Magnesium Total Bilirubin AST ALT Alkaline Phosphatase Total Protein Albumin Urine Color Urine Clarity Urine pH Ur Specific [place] Urine Protein Urine Glucose (UA) Urine Ketones Urine Occult Blood Urine Nitrate Urine Bilirubin Urine Urobilinogen Ur Leukocyte Esterase Urine RBC Urine WBC Ur Squamous Epith Cells Amorphous Sediment Urine Bacteria Hyaline Casts Micro UA Comment Urine Culture Comments Urine Osmolality 343 Ur Random Creatinine 95 Ur Random Sodium 58 Body Fluid Amylase Source Peritoneal Fluid Amylase 18 Blood Type 10/02/17 10/03/17 10/03/17 18:17 04:50 04:53 WBC 8.8 RBC 3.32 L Hgb 11.1 L Hct 32.1 L MCV 96.7 MCH 33.5 MCHC 34.7 RDW 17.3 H Plt Count 146 L D MPV 7.8 Neut % (Auto) 71.9 H Lymph % (Auto) 17.0 [place] % (Auto) 7.5 Eos % (Auto) 2.7 Baso % (Auto) 0.9 Neut # (Auto) 6.3 Lymph # (Auto) 1.5 [place] # (Auto) 0.7 Eos # (Auto) 0.2 Baso # (Auto) 0.1 WBC Differential . Differential Comment Auto diff final Sodium 135 L Potassium 5.5 H Chloride 103 Carbon Dioxide 17.9 L Anion Gap 14 BUN 118 H Creatinine 6.87 H Estimated GFR 8 L Random Glucose 85 Calcium 8.5 D Phosphorus 7.3 H Magnesium 3.2 H Total Bilirubin 1.5 H AST 115 H ALT 48 Alkaline Phosphatase 78 Total Protein 6.1 L Albumin 2.8 L Urine Color Yellow Urine Clarity Cloudy H Urine pH 5.0 Ur Specific [place] 1.011 Urine Protein Negative Urine Glucose (UA) Negative Urine Ketones Negative Urine Occult Blood Moderate H Urine Nitrate Negative Urine Bilirubin Negative Urine Urobilinogen Less than 2 Ur Leukocyte Esterase Small H Urine RBC 29 H Urine WBC 9 H Ur Squamous Epith Cells 3 Amorphous Sediment Rare H Urine Bacteria Moderate H Hyaline Casts 55 Micro UA Comment Culture indicated Urine Culture Comments Culture indicated Urine Osmolality Ur Random Creatinine Ur Random Sodium Body Fluid Amylase Source Fluid Amylase Blood Type 10/03/17 11:16 WBC RBC Hgb Hct MCV MCH MCHC RDW Plt Count MPV Neut % (Auto) Lymph % (Auto) [place] % (Auto) Eos % (Auto) Baso % (Auto) Neut # (Auto) Lymph # (Auto) [place] # (Auto) Eos # (Auto) Baso # (Auto) WBC Differential Differential Comment Sodium Potassium Chloride Carbon Dioxide Anion Gap BUN Creatinine Estimated GFR Random Glucose Calcium Phosphorus Magnesium Total Bilirubin AST ALT Alkaline Phosphatase Total Protein Albumin Urine Color Urine Clarity Urine pH Ur Specific [place] Urine Protein Urine Glucose (UA) Urine Ketones Urine Occult Blood Urine Nitrate Urine Bilirubin Urine Urobilinogen Ur Leukocyte Esterase Urine RBC Urine WBC Ur Squamous Epith Cells Amorphous Sediment Urine Bacteria Hyaline Casts Micro UA Comment Urine Culture Comments Urine Osmolality Ur Random Creatinine Ur Random Sodium Body Fluid Amylase Source Fluid Amylase Blood Type A Positive Microbiology 10/02/17 18:17 Clean Catch Urine Urine Culture - Preliminary gram negative rods 10/02/17 09:43 Fluid - Ascites Fluid Gram Stain - Final 10/02/17 09:43 Fluid - Ascites Fluid Body Fluid Culture - Preliminary No growth in 24 hours - Imaging Impressions Central Venous Line 10/03/17 00:00 CONCLUSION: 1. Uncomplicated line placement as above. - Procedures Sono-guided paracentesis Assessment and Plan - Plan 1. Acute renal failure with hyperkalemia and acidosis. MARIAMA possibly prerenal vs ATN from infection/hypotension/ and GI losses. Creatinine 6.19, baseline approximately 1.2 Renal ultrasound shows no obstruction Continue bicarb infusion. Start dose of nebulization and IV bicarb. Monitor telemetry Nephrology consulted, status post Vas-Cath and hemodialysis today 2. Cirrhosis/ascites Status post paracentesis 1 month ago Ultrasound guided paracentesis 6 L removed. Patient receiving IV albumin 3. Bilateral lower extremity cellulitis Likely secondary to edema Improving continue clindamycin IV 4. GERD/hyperlipidemia Continue home Protonix Holding statin as patient with transaminitis 5. Diarrhea patient on antibiotics for cellulitis. Improving. Check C. difficile and continue Lactinex 6. Gram-negative sakina UTI. Continue clindamycin follow-up culture 7. Distal DVT. 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
[2017-10-03 19:08] LABS: Hepatitits B Surface Antigen Nonreactive (Nonreactive)
[2017-10-03 19:34] LABS: Hepatitis A IgM Antibody Nonreactive (Nonreactive)
[2017-10-04 07:20] LABS: Alanine Aminotransferase 50 U/L (12-78); Albumin 2.3 g/dL (3.4-5.0); Alkaline Phosphatase 70 U/L (45-117); Anion Gap 16 meq/L (5-15); Aspartate Aminotransferase 113 U/L (15-37); Blood Urea Nitrogen 80 mg/dL (7-18); Calcium 7.8 mg/dL (8.5-10.1); Carbon Dioxide 21.3 meq/L (21.0-32.0); Chloride 103 meq/L (98-107); Glomerular Filtration Rate 10 mL/min (>89); Glucose,Random 69 mg/dL (74-106); Magnesium 2.8 mg/dL (1.5-2.5); Potassium 4.6 meq/L (3.5-5.1); Sodium 140 meq/L (136-145); Total Protein 5.5 g/dL (6.4-8.2)
[2017-10-04] MEDS: Clindamycin Inj 900 MG in Sodium Chlor 0.9% Inj 100 ML IV.SIG SCH (08:58)
[2017-10-04] MEDS: Lactobacillus Acidophilus/L. Spores Tablet PO SCH ×2 (08:59→21:35)
[2017-10-04] MEDS ORDERED: Sodium Chlor 0.9% Inj 250 ML IV.SIG ONE (09:42)
--- NOTE | 2017-10-04 10:30 | P.PNNP ---
Subjective Interval history: Seen during hemodialysis tolerating well. Reports that abdomen is bloated but no other problems. <Zully Magallanes - Last Filed: 10/04/17 10:18> Physical Exam Vital signs: Vital Signs 10/03/17 12:00 10/03/17 16:00 10/03/17 20:00 Temperature 97.2 F L 97.2 F L 97.7 F Pulse Rate 71 70 78 Respiratory Rate 17 16 17 Blood Pressure 94/45 L 157/96 H 128/62 Pulse Oximetry 91 L 98 99 10/04/17 00:00 10/04/17 04:00 10/04/17 08:00 Temperature 98.8 F 97.9 F 97.3 F L Pulse Rate 74 76 71 Respiratory Rate 17 17 18 Blood Pressure 137/66 110/51 L 86/42 L Pulse Oximetry 99 94 L 93 L Intake & Output 10/03/17 10/04/17 10/04/17 18:59 06:59 18:59 Intake Total 1581 / 1581 346 / 346 Output Total 1010 / 1010 Balance 571 / 571 346 / 346 Intake: IV 1106 / 1106 106 / 106 Sodium Bicarbonate 8.4% Inj 50 1000 / 1000 MEQ In 1/2 Normal Saline Inj 950 ML @ 84 mls/hr IV.CONT . [id number] REJI Rx#:[id number] Cleocin Inj 900 MG In NS Inj 106 / 106 106 / 106 100 ML @ 100 mls/hr IV.SIG Q8H REJI Rx#:[id number] Oral 475 / 475 240 / 240 Output: Urine 10 / 10 Hemodialysis Amount 1000 / 1000 Other: # Voids 4 Date of Last Bowel Movement 10/03/17 # Bowel Movements 1 - Constitutional no acute distress - Routine HEENT Exam Head: Present: normocephalic ENT: Present: mucous membranes moist - Routine Neck Exam Present: supple. Absent: JVD - Routine Respiratory Exam Present: decreased breath sounds. Absent: rales, rhonchi - Routine Cardiovascular Exam Present: RRR - Routine Abdominal Exam Present: soft, normoactive bowel sounds, distended. Absent: tenderness - Routine Extremities Exam Present: edema - Routine Skin Exam Present: erythema, dry, warm - Routine Neurological Exam Present: alert, oriented X3 - Routine Psychiatric Exam Present: cooperative <Zully Magallanes - Last Filed: 10/04/17 10:18> Vital signs: Vital Signs 10/04/17 11:16 10/04/17 14:15 10/04/17 16:00 Temperature 97.8 F Pulse Rate 99 H Respiratory Rate 18 Blood Pressure 93/49 L 100/67 Pulse Oximetry 93 L 91 L 10/04/17 20:00 10/05/17 00:00 10/05/17 08:00 Temperature 98.3 F 98.6 F 97.8 F Pulse Rate 75 73 71 Respiratory Rate 16 18 18 Blood Pressure 99/48 L 108/51 L 108/53 L Pulse Oximetry 98 97 94 L Intake & Output 10/04/17 10/05/17 10/05/17 18:59 06:59 18:59 Intake Total 1300 / 1300 920 / 920 Output Total 1500 / 1500 Balance -200 / -200 920 / 920 Intake: IV 600 / 600 200 / 200 Sodium Bicarbonate 8.4% Inj 50 500 / 500 MEQ In 1/2 Normal Saline Inj 950 ML @ 84 mls/hr IV.CONT . [id number] REJI Rx#:[id number] Flexbumin 25% Inj 100 ML @ 60 100 / 100 mls/hr IV.SIG WITH DIALYSIS PRN Rx#:[id number] Cubicin Inj 650 MG In NS Inj 100 / 100 100 ML @ 200 mls/hr IV.SIG Q48H RE[facility] Rx#:[id number] INVanz Inj 500 MG In NS Inj 100 100 / 100 ML @ 100 mls/hr IV.SIG Q24H REJI Rx#:[id number] Oral 700 / 700 720 / 720 Output: Urine 500 / 500 Hemodialysis Amount 1000 / 1000 Other: Date of Last Bowel Movement 10/03/17 10/04/17 10/04/17 # Bowel Movements 2 2 <Sherrie Sellers Q - Last Filed: 10/05/17 10:27> Assessment and Plan - Assessment (1) Acute kidney injury Code(s): N17.9 - Acute kidney failure, unspecified Status: Acute Plan: Code(s): N17.9 - Acute kidney failure, unspecified Status: Acute Plan: Acute kidney injury with a creatinine of 6.32 and potassium level of 6 on day of consult Per in Dr. Gibson's office, his creatinine was 5. Creatinine was noted to be 1.24 on 09/12/17. MARIAMA possibly prerenal vs ATN from infection/hypotension/ and GI losses. Renal ultrasound: Bilateral echogenic kidneys concerning for medical renal disease. The kidneys are normal in size. Right renal cysts. Creatinine at 5.31 and potassium at 4.6\ Urinary output is minimal Acidosis has resolved IVF are discontinued Avoid nephrotoxins and hypotension Continue to hold diuretics Hyperkalemia now resolved Vas cath placed and hemodialysis started 10/04 with UF of 1 liters Seen during hemodialysis today tolerating well Will monitor urinary output, renal panel, and watch for renal recovery. Next hemodialysis planned for Friday unless otherwise needed earlier. (2) Ascites Code(s): R18.8 - Other ascites Status: Acute Plan: S/p paracentesis 10/03 (3) Cellulitis Code(s): L03.90 - Cellulitis, unspecified Status: Acute Plan: Continue antibiotics <Zully Magallanes - Last Filed: 10/04/17 10:18> - Assessment (1) Acute kidney injury Code(s): N17.9 - Acute kidney failure, unspecified Status: Acute (2) Ascites Code(s): R18.8 - Other ascites Status: Acute (3) Cellulitis Code(s): L03.90 - Cellulitis, unspecified Status: Acute - Attending Attestation Patient seen and examined, agree with above. HD done, watch for renal recovery. <Warner Sellers - Last Filed: 10/05/17 10:27>
[2017-10-04] MEDS: Sodium Bicarbonate 8.4% Inj 50 MEQ in Sodium Chloride 0.45 % Inj 950 ML IV.CONT SCH (14:29)
--- NOTE | 2017-10-04 15:47 | P.PN ---
Subjective Interval history: F/U Fredrick. seen post HD complaining of soreness over paracentesis site- no signs of infection Physical Exam Vital signs: Vital Signs 10/03/17 16:00 10/03/17 20:00 10/04/17 00:00 Temperature 97.2 F L 97.7 F 98.8 F Pulse Rate 70 78 74 Respiratory Rate 16 17 17 Blood Pressure 157/96 H 128/62 137/66 Pulse Oximetry 98 99 99 10/04/17 04:00 10/04/17 08:00 10/04/17 11:16 Temperature 97.9 F 97.3 F L Pulse Rate 76 71 Respiratory Rate 17 18 Blood Pressure 110/51 L 86/42 L Pulse Oximetry 94 L 93 L 93 L 10/04/17 14:15 Temperature Pulse Rate Respiratory Rate Blood Pressure 93/49 L Pulse Oximetry Intake & Output 10/03/17 10/04/17 10/04/17 18:59 06:59 18:59 Intake Total 1581 / 1581 346 / 346 600 / 600 Output Total 1010 / 1010 1000 / 1000 Balance 571 / 571 346 / 346 -400 / -400 Intake: IV 1106 / 1106 106 / 106 600 / 600 Sodium Bicarbonate 8.4% Inj 50 1000 / 1000 500 / 500 MEQ In 1/2 Normal Saline Inj 950 ML @ 84 mls/hr IV.CONT . [id number] [facility] Rx#:[id number] Flexbumin 25% Inj 100 ML @ 60 100 / 100 mls/hr IV.SIG WITH DIALYSIS PRN Rx#:[id number] Cleocin Inj 900 MG In NS Inj 106 / 106 106 / 106 100 ML @ 100 mls/hr IV.SIG Q8H [facility] Rx#:[id number] Oral 475 / 475 240 / 240 Output: Urine 10 / 10 Hemodialysis Amount 1000 / 1000 1000 / 1000 Other: # Voids 4 Date of Last Bowel Movement 10/03/17 10/03/17 # Bowel Movements 1 Narrative: Gen.: Patient is alert, no SOB, No acute distress Cardiovascular: Regular rate and rhythm. No murmurs, rubs or gallops. Respiratory: Lungs clear to auscultation bilaterally. No wheezes or rhonchi. Abdomen: Soft, nontender, positive distention. No peritoneal signs. Musculoskeletal: No gross deformities. 2+ pitting lower extremity edema, left greater than right. Skin: Improving left lower extremity erythema that extends from ankle to knee. Neuro: Sensory and motor grossly intact. Cranial nerves II through XII grossly intact. Results - Labs CBC & Chem 7: 10/03/17 04:50 10/04/17 04:36 Laboratory Results - last 24 hr 10/03/17 10/03/17 10/04/17 11:16 17:43 04:36 Sodium 140 Potassium 4.6 D Chloride 103 Carbon Dioxide 21.3 Anion Gap 16 H BUN 80 H Creatinine 5.31 H Estimated GFR 10 L Random Glucose 69 L Calcium 7.8 L Magnesium 2.8 H Total Bilirubin 1.5 H AST 113 H ALT 50 Alkaline Phosphatase 70 Total Protein 5.5 L D Albumin 2.3 L Hepatitis A IgM Ab Nonreactive Hep Bs Antigen Nonreactive Hep B Core IgM Ab Nonreactive Hep C IgG Ab Nonreactive Blood Bank Comment Microbiology 10/02/17 18:17 Clean Catch Urine Urine Culture - Preliminary Escherichia coli ESBL positive 10/02/17 09:43 Fluid - Ascites Fluid Gram Stain - Final 10/02/17 09:43 Fluid - Ascites Fluid Body Fluid Culture - Preliminary - Procedures Sono-guided paracentesis Vascath Assessment and Plan - Plan 1. Acute renal failure with hyperkalemia and acidosis. FREDRICK possibly prerenal vs ATN from infection/hypotension/ and GI losses. Now on HD x2 improving acidosis but crea still significantly elevated. Nonoliguric HD per renal Renal ultrasound shows no obstruction Discontinue bicarb infusion. Nephrology consulted, status post Vas-Cath 2. Cirrhosis/ascites Status post paracentesis 1 month ago Ultrasound guided paracentesis 6 L removed 3. Bilateral lower extremity cellulitis Likely secondary to edema Improving continue clindamycin IV 4. GERD/hyperlipidemia Continue home Protonix Holding statin as patient with transaminitis 5. Diarrhea patient on antibiotics for cellulitis. Resolving. Check C. difficile and continue Lactinex 6. E coli ESBL UTI. Consult ID 7. Distal DVT. 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
--- NOTE | 2017-10-04 19:00 | MB ---
cc: Michael Heath MD, Franklyn F MD DATE: 10/04/2017 REQUESTING PHYSICIAN: Dr. Walker REASON FOR CONSULTATION:: E coli ESBL urinary tract infection. HISTORY OF PRESENT ILLNESS: This is an 82-year-old white male who presented. to the emergency department on 10/01/2017. The patient was sent to the emergency department because of abnormal labs and he was also complaining of worsening abdominal swelling and worsening lower extremity edema and pain in his lower extremities. The patient was recently discharged from the hospital. He is known to me from the recent hospitalization. At that time, he had bilateral lower extremity cellulitis, and he was treated with IV antibiotics and discharged on p.o. Keflex. He finished the Keflex and was seen by his primary physician, who then put him on doxycycline because it was felt that the cellulitis had not resolved. Because of edema, he was put on diuretics as well. The patient underwent a Doppler ultrasound of his extremities and it showed right [id number] nonocclusive thrombus and also a popliteal cyst on the right. He was started on dialysis and has been treated with 2 dialysis treatments. He had a urinalysis, which showed 9 white cells and the urine culture came back with ESBL Escherichia coli. The patient underwent paracentesis and a 7.3 liters of clear yellow fluid was removed. The culture is pending from the fluid. The patient was put on clindamycin on 10/02. Currently, he is sitting in a chair and he tells me that he feels fine. He is making urine. He is afebrile. The patient's is at bedside. She notes that prior to admission his abdomen was becoming more distended. Currently, he is awake and alert. His , however, notes that he is fidgeting at times. PAST MEDICAL HISTORY: Cirrhosis of the liver, hypercholesteremia, gastroesophageal reflux disease, diabetes mellitus, ascites, history of bilateral knee replacements, cellulitis of the lower extremities. ALLERGIES: NAPROXEN, MORPHINE, IBUPROFEN. MEDICATIONS: 1. Albumin 2. Clindamycin 3. Lactinex. 4. Protonix. SOCIAL HISTORY: No tobacco use. No illicit drugs. No alcohol use. The patient lives with his . FAMILY HISTORY: Noncontributory. REVIEW OF SYSTEMS: All systems have been reviewed and are negative except for that mentioned in the history of present illness. PHYSICAL EXAMINATION: GENERAL: This is a thin, frail appearing male, who is in no acute distress. VITAL SIGNS: Include temperature 97.8, BP 100/67, respirations 18, heart rate 99. HEENT: The head is atraumatic. Extraocular movements grossly intact. Pupils reactive to light. No icterus. Oropharynx moist mucosa without lesions. NECK: Supple without adenopathy. LUNGS: Clear breath sounds with slight rhonchi at the bases. HEART: Regular S1 and S2 with a 3/6 systolic murmur at the left sternal border. ABDOMEN: Bowel sounds present. mildly distended, soft, nontender. RECTAL: Not performed. EXTREMITIES: The left leg has erythema from the knee down to the distal tibia on the left. It blanches with palpation. There is mild erythema at the dorsum of the foot on the left. There is also mild erythema at the dorsum of the left foot. The right foot has mild erythema at the dorsal aspect at the base of the toes. The right tibia has no visible erythema. There is swelling apparent at both knees. SKIN: No diffuse rash. The patient has chronic hypopigmented areas of the skin throughout. NEUROLOGIC: Nonfocal. PSYCHIATRIC: Normal mood. The patient is calm and cooperative. LABORATORY DATA: WBC 8.8, platelets 146, 71% neutrophils, hemoglobin 11.1, creatinine 5.13, .13, BUN 80, sodium 140, AST 113, ALT 50. Peritoneal fluid revealed 175 white cells, 1340 red cells, 14% neutrophils, 15% lymphocytes 31% percent monocytes 16% mesothelial cells and 24% histiocytes. IMPRESSION: 1. Urinary tract infection due to ESBL Escherichia coli. 2. Cellulitis of the left leg persistent despite previous antibiotics. 3. Acute kidney disease. 4. Deep venous thrombosis of the right lower extremity. RECOMMENDATIONS: 1. Begin ertapenem for the ESBL Escherichia coli. 2. Discontinue clindamycin. 3. Begin daptomycin for the cellulitis. The patient probably has resistant bacterial infection causing the cellulitis since he has not responded to previous antibiotics. 4. Monitor clinical status. 5. Do followup urine culture to check for clearance of the bacteria in the urine in a couple of days. Thank you for this consultation. I will follow the patient's progress along with you and make further recommendations on followup. MD MATTHEW Rivas , 06:22 PM , 06:59 PM
[2017-10-04] MEDS: DAPTOmycin Inj 650 MG in Sodium Chlor 0.9% Inj 100 ML IV.SIG SCH (21:36)
[2017-10-05 10:22] LABS: Calcium 8.3 mg/dL (8.5-10.1); Carbon Dioxide 27.4 meq/L (21.0-32.0); Magnesium 2.4 mg/dL (1.5-2.5); Potassium 3.7 meq/L (3.5-5.1)
--- NOTE | 2017-10-05 13:14 | P.PN ---
Subjective Interval history: Follow-up acute kidney injury. Today he feels better he is voiding. Denies diarrhea. Physical Exam Vital signs: Vital Signs 10/04/17 14:15 10/04/17 16:00 10/04/17 20:00 Temperature 97.8 F 98.3 F Pulse Rate 99 H 75 Respiratory Rate 18 16 Blood Pressure 93/49 L 100/67 99/48 L Pulse Oximetry 91 L 98 10/05/17 00:00 10/05/17 08:00 Temperature 98.6 F 97.8 F Pulse Rate 73 71 Respiratory Rate 18 18 Blood Pressure 108/51 L 108/53 L Pulse Oximetry 97 94 L Intake & Output 10/04/17 10/05/17 10/05/17 18:59 06:59 18:59 Intake Total 1300 / 1300 920 / 920 Output Total 1500 / 1500 Balance -200 / -200 920 / 920 Intake: IV 600 / 600 200 / 200 Sodium Bicarbonate 8.4% Inj 50 500 / 500 MEQ In 1/2 Normal Saline Inj 950 ML @ 84 mls/hr IV.CONT . [id number] [facility]I Rx#:[id number] Flexbumin 25% Inj 100 ML @ 60 100 / 100 mls/hr IV.SIG WITH DIALYSIS PRN Rx#:[id number] Cubicin Inj 650 MG In NS Inj 100 / 100 100 ML @ 200 mls/hr IV.SIG Q48H [facility]JI Rx#:[id number] INVanz Inj 500 MG In NS Inj 100 100 / 100 ML @ 100 mls/hr IV.SIG Q24H [facility]I Rx#:[id number] Oral 700 / 700 720 / 720 Output: Urine 500 / 500 Hemodialysis Amount 1000 / 1000 Other: Date of Last Bowel Movement 10/03/17 10/04/17 10/04/17 # Bowel Movements 2 2 Narrative: Gen: Well-developed and well-nourished in no distress Cardiovascular: Regular rate and rhythm. No murmurs, rubs or gallops. Respiratory: Lungs clear to auscultation bilaterally. No wheezes or rhonchi. Abdomen: Soft, nontender, positive distention. No peritoneal signs. Musculoskeletal: No gross deformities. 2+ pitting lower extremity edema, left greater than right. Skin: Improving left lower extremity erythema that extends from ankle to knee. Neuro: Sensory and motor grossly intact. Cranial nerves II through XII grossly intact. Results - Labs CBC & Chem 7: 10/03/17 04:50 10/05/17 07:55 Laboratory Results - last 24 hr 10/05/17 07:55 Sodium 142 Potassium 3.7 D Chloride 103 Carbon Dioxide 27.4 Anion Gap 12 BUN 49 H Creatinine 3.99 H Estimated GFR 15 L Random Glucose 91 Calcium 8.3 L Magnesium 2.4 Microbiology 10/02/17 18:17 Clean Catch Urine Urine Culture - Final Escherichia coli ESBL positive 10/02/17 09:43 Fluid - Ascites Fluid Gram Stain - Final 10/02/17 09:43 Fluid - Ascites Fluid Body Fluid Culture - Final - Procedures Sono-guided paracentesis Vascath Assessment and Plan - Plan 1. Acute renal failure with hyperkalemia and acidosis. MARIAMA possibly prerenal vs ATN from infection/hypotension/ and GI losses. Now on HD x2 improving acidosis and creatinine. Nonoliguric HD per renal Renal ultrasound shows no obstruction Discontinue bicarb infusion. Nephrology consulted, status post Vas-Cath 2. Cirrhosis/ascites Status post paracentesis 1 month ago Ultrasound guided paracentesis 6 L removed 3. Bilateral lower extremity cellulitis Likely secondary to edema E. coli ESBL UTI Stable continue IV ertapenem and daptomycin per ID 4. GERD/hyperlipidemia Continue home Protonix Holding statin as patient with transaminitis 5. Diarrhea patient on antibiotics for cellulitis. Resolving. Check C. difficile and continue Lactinex 6. 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 DVT prophylaxis with SCD and early ambulation. INR elevated at 1.8. He is already auto anticoagulated. Per hematology, low intensity anticoagulation would put him at a significantly increased risk of bleeding given his poor hepatic synthetic function, baseline elevation in coagulation profile as well as previous history of massive upper GI bleeding Discharge Planning: Home with PT
--- NOTE | 2017-10-05 13:18 | P.PNNP ---
Subjective Interval history: Sitting up eating lunch. No shortness of breath. Complains of abdominal distention and bloating. Urinary output is starting to increase. Creatinine at 3.9. <Zully Magallanes - Last Filed: 10/05/17 13:14> Physical Exam Vital signs: Vital Signs 10/04/17 14:15 10/04/17 16:00 10/04/17 20:00 Temperature 97.8 F 98.3 F Pulse Rate 99 H 75 Respiratory Rate 18 16 Blood Pressure 93/49 L 100/67 99/48 L Pulse Oximetry 91 L 98 10/05/17 00:00 10/05/17 08:00 Temperature 98.6 F 97.8 F Pulse Rate 73 71 Respiratory Rate 18 18 Blood Pressure 108/51 L 108/53 L Pulse Oximetry 97 94 L Intake & Output 10/04/17 10/05/17 10/05/17 18:59 06:59 18:59 Intake Total 1300 / 1300 920 / 920 Output Total 1500 / 1500 Balance -200 / -200 920 / 920 Intake: IV 600 / 600 200 / 200 Sodium Bicarbonate 8.4% Inj 50 500 / 500 MEQ In 1/2 Normal Saline Inj 950 ML @ 84 mls/hr IV.CONT . [id number] [facility] Rx#:[id number] Flexbumin 25% Inj 100 ML @ 60 100 / 100 mls/hr IV.SIG WITH DIALYSIS PRN Rx#:[id number] Cubicin Inj 650 MG In NS Inj 100 / 100 100 ML @ 200 mls/hr IV.SIG Q48H [facility] Rx#:[id number] INVanz Inj 500 MG In NS Inj 100 100 / 100 ML @ 100 mls/hr IV.SIG Q24H [facility] Rx#:[id number] Oral 700 / 700 720 / 720 Output: Urine 500 / 500 Hemodialysis Amount 1000 / 1000 Other: Date of Last Bowel Movement 10/03/17 10/04/17 10/04/17 # Bowel Movements 2 2 - Constitutional no acute distress - Routine HEENT Exam Head: Present: normocephalic ENT: Present: mucous membranes moist - Routine Neck Exam Present: supple. Absent: JVD - Routine Respiratory Exam Present: decreased breath sounds. Absent: rales, rhonchi, wheezes - Routine Cardiovascular Exam Present: RRR - Routine Abdominal Exam Present: soft, normoactive bowel sounds, distended. Absent: tenderness - Routine Extremities Exam Absent: edema - Routine Skin Exam Present: erythema, dry, warm - Routine Neurological Exam Present: alert, oriented X3 - Routine Psychiatric Exam Present: cooperative <Zully Magallanes - Last Filed: 10/05/17 13:14> Vital signs: Vital Signs 10/08/17 12:00 10/08/17 15:36 10/08/17 18:00 Temperature 98.2 F 97.9 F 98.2 F Pulse Rate 69 72 71 Respiratory Rate 31 H 18 21 Blood Pressure 112/63 114/59 L 100/55 L Pulse Oximetry 95 99 97 10/08/17 19:55 10/08/17 20:00 10/09/17 00:00 Temperature 98.4 F 98.2 F Pulse Rate 75 76 Respiratory Rate 22 26 H Blood Pressure 102/51 L 112/56 L Pulse Oximetry 96 97 98 10/09/17 04:36 10/09/17 06:00 10/09/17 09:12 Temperature 98.7 F Pulse Rate 75 76 Respiratory Rate 24 Blood Pressure 109/54 L Pulse Oximetry 96 96 Intake & Output 10/08/17 10/09/17 10/09/17 18:59 06:59 18:59 Intake Total 240 / 240 650 / 650 100 / 100 Output Total 300 / 300 300 / 300 Balance -60 / -60 350 / 350 100 / 100 Weight 69.9 kg Intake: IV 300 / 300 100 / 100 Cubicin Inj 650 MG In NS Inj 200 / 200 100 ML @ 200 mls/hr IV.SIG Q48H [facility] Rx#:[id number] INVanz Inj 500 MG In NS Inj 100 100 / 100 100 / 100 ML @ 100 mls/hr IV.SIG Q24H [facility] Rx#:[id number] Oral 240 / 240 350 / 350 Output: Urine 300 / 300 300 / 300 Other: # Voids 5 # Incontinent Voids 1 Date of Last Bowel Movement 10/04/17 10/04/17 10/09/17 # Bowel Movements 0 <Warner Sellers - Last Filed: 10/09/17 11:23> Assessment and Plan - Assessment (1) Acute kidney injury Code(s): N17.9 - Acute kidney failure, unspecified Status: Acute Plan: Code(s): N17.9 - Acute kidney failure, unspecified Status: Acute Plan: Acute kidney injury with a creatinine of 6.32 and potassium level of 6 on day of consult Per in Dr. Gibson's office, his creatinine was 5. Creatinine was noted to be 1.24 on 09/12/17. MARIAMA possibly prerenal vs ATN from infection/hypotension/ and GI losses. Renal ultrasound: Bilateral echogenic kidneys concerning for medical renal disease. The kidneys are normal in size. Right renal cysts. Creatinine at 3.99 Urinary output has improved at 500ml/24 hours Avoid nephrotoxins and hypotension Continue to hold diuretics Vas cath placed and hemodialysis started 10/04 with UF of 1 liters Will monitor urinary output, renal panel, and watch for renal recovery. Next hemodialysis planned for Friday unless otherwise needed earlier. Labs in AM (2) Ascites Code(s): R18.8 - Other ascites Status: Acute Plan: S/p paracentesis 10/03 (3) Cellulitis Code(s): L03.90 - Cellulitis, unspecified Status: Acute Plan: ID consulted and managing Continue antibiotics/ daptomycin/ Invanz <Zully Magallanes - Last Filed: 10/05/17 13:14> - Assessment (1) Acute kidney injury Code(s): N17.9 - Acute kidney failure, unspecified Status: Acute (2) Ascites Code(s): R18.8 - Other ascites Status: Acute (3) Cellulitis Code(s): L03.90 - Cellulitis, unspecified Status: Acute - Attending Attestation Patient seen and examined, agree with above. Paracentesis was done, watch for renal recovery. HD as needed. <Warner Sellers - Last Filed: 10/09/17 11:23>
--- NOTE | 2017-10-05 17:03 | P.PNID ---
Subjective Remarks: Patient says he feels okay. He is going around in circles pushing his walker in front of him. Yesterday evening he was turning his lunch tray around in circles in a clockwise direction. His notes that he has been doing with but only during this admission and not before. Says he is fine. No fevers. This is an 82-year-old white male who presented. to the emergency department on 10/01/2017. The patient was sent to the emergency department because of abnormal labs and he was also complaining of worsening abdominal swelling and worsening lower extremity edema and pain in his lower extremities. The patient was recently discharged from the hospital. He is known to me from the recent hospitalization. At that time, he had bilateral lower extremity cellulitis, and he was treated with IV antibiotics and discharged on p.o. Keflex. He finished the Keflex and was seen by his primary physician, who then put him on doxycycline because it was felt that the cellulitis had not resolved. Because of edema, he was put on diuretics as well. The patient underwent a Doppler ultrasound of his extremities and it showed right [id number] nonocclusive thrombus and also a popliteal cyst on the right. He was started on dialysis and has been treated with 2 dialysis treatments. He had a urinalysis, which showed 9 white cells and the urine culture came back with ESBL Escherichia coli. The patient underwent paracentesis and a 7.3 liters of clear yellow fluid was removed. He was noted to have acute kidney disease and has been started on dialysis. Past Medical History: PAST MEDICAL HISTORY: Cirrhosis of the liver, hypercholesteremia, gastroesophageal reflux disease, diabetes mellitus, ascites, history of bilateral knee replacements, cellulitis of the lower extremities. Allergies/Adverse Reactions: Allergies ibuprofen Adverse Reaction (Severe, Verified 10/01/17 14:51) cirrhosis cannot take due to liver morphine Adverse Reaction (Severe, Verified 10/01/17 14:51) Nausea/Vomiting naproxen Adverse Reaction (Severe, Verified 10/01/17 14:51) cirrhosis cant take due to liver Objective Vital Signs 10/04/17 20:00 10/05/17 00:00 10/05/17 08:00 Temperature 98.3 F 98.6 F 97.8 F Pulse Rate 75 73 71 Respiratory Rate 16 18 18 Blood Pressure 99/48 L 108/51 L 108/53 L Pulse Oximetry 98 97 94 L 10/05/17 12:00 Temperature 97.9 F Pulse Rate 76 Respiratory Rate 18 Blood Pressure 90/50 L Pulse Oximetry 99 Intake & Output 10/04/17 10/05/17 10/05/17 18:59 06:59 18:59 Intake Total 1300 / 1300 920 / 920 Output Total 1500 / 1500 Balance -200 / -200 920 / 920 Intake: IV 600 / 600 200 / 200 Sodium Bicarbonate 8.4% Inj 50 500 / 500 MEQ In 1/2 Normal Saline Inj 950 ML @ 84 mls/hr IV.CONT . [id number] REJI Rx#:[id number] Flexbumin 25% Inj 100 ML @ 60 100 / 100 mls/hr IV.SIG WITH DIALYSIS PRN Rx#:[id number] Cubicin Inj 650 MG In NS Inj 100 / 100 100 ML @ 200 mls/hr IV.SIG Q48H [facility] Rx#:[id number] INVanz Inj 500 MG In NS Inj 100 100 / 100 ML @ 100 mls/hr IV.SIG Q24H [facility] Rx#:[id number] Oral 700 / 700 720 / 720 Output: Urine 500 / 500 Hemodialysis Amount 1000 / 1000 Other: Date of Last Bowel Movement 10/03/17 10/04/17 10/04/17 # Bowel Movements 2 2 10/02/17 18:17 Clean Catch Urine Urine Culture - Final Escherichia coli ESBL positive 10/02/17 09:43 Fluid - Ascites Fluid Gram Stain - Final 10/02/17 09:43 Fluid - Ascites Fluid Body Fluid Culture - Final Lab - Chemistry Results 10/04/17 10/05/17 04:36 07:55 Sodium 140 142 Potassium 4.6 D 3.7 D Chloride 103 103 Carbon Dioxide 21.3 27.4 Anion Gap 16 H 12 BUN 80 H 49 H Creatinine 5.31 H 3.99 H Estimated GFR 10 L 15 L Random Glucose 69 L 91 Calcium 7.8 L 8.3 L Magnesium 2.8 H 2.4 Total Bilirubin 1.5 H AST 113 H ALT 50 Alkaline Phosphatase 70 Total Protein 5.5 L D Albumin 2.3 L Imaging: ITS Impressions Venous Doppler Study 10/01/17 15:34 CONCLUSION: 1. Nonocclusive thrombus. Renal vein on the right below the knee. 2. Popliteal cyst on the right. 3. Generalized edema. Abdomen/Bladder Ultrasound 10/02/17 00:00 CONCLUSION: 1. Bilateral echogenic kidneys concerning for medical renal disease. The kidneys are normal in size. 2. Right renal cysts. 3. Ascites. Paracentesis Ultrasound 10/02/17 00:00 CONCLUSION: Uncomplicated ultrasound-guided paracentesis. Central Venous Line 10/03/17 00:00 CONCLUSION: 1. Uncomplicated line placement as above. Physical Exam: GENERAL: No acute distress. HEENT: The head is atraumatic. Extraocular movements grossly intact. Pupils reactive to light. No icterus. Oropharynx moist mucosa without lesions. NECK: Supple without adenopathy. LUNGS: Clear breath sounds with slight rhonchi at the bases. HEART: Regular S1 and S2 with a 3/6 systolic murmur at the left sternal border. ABDOMEN: Bowel sounds present. mildly distended, soft, nontender. EXTREMITIES: The left leg has erythema is about the same. Present from left knee down to the distal tibia on the left. Erythema at the dorsum of the foot on the left. There is also mild erythema at the dorsum of the left foot. The right foot has mild erythema at the dorsal aspect at the base of the toes. The right tibia has no visible erythema. There is swelling apparent at both knees. SKIN: No diffuse rash. The patient has chronic hypopigmented areas of the skin throughout. NEUROLOGIC: Nonfocal. PSYCHIATRIC: Normal mood. Calm and cooperative. Assessment and Plan - Plan IMPRESSION: 1. Urinary tract infection due to ESBL Escherichia coli. 2. Cellulitis of the left leg persistent despite previous antibiotics. 3. Acute kidney disease. 4. Deep venous thrombosis of the right lower extremity. RECOMMENDATIONS: 1. Continue Ertapenem for the ESBL Escherichia coli. 2. Continue Daptomycin for the cellulitis. The patient probably has resistant bacterial infection causing the cellulitis since he has not responded to previous antibiotics. 3. Monitor clinical status. 4. Follow up urine culture in a couple of days.
[2017-10-05] MEDS: Ertapenem Inj 500 MG in Sodium Chlor 0.9% Inj 100 ML IV.SIG SCH (20:22)
[2017-10-05] MEDS ORDERED: Sodium Chlor 0.9% Inj 250 ML IV.SIG ONE (20:25)
[2017-10-05] MEDS: Lactobacillus Acidophilus/L. Spores Tablet PO SCH (20:29)
[2017-10-06] MEDS: Lactobacillus Acidophilus/L. Spores Tablet PO SCH ×4 (00:37→18:30)
[2017-10-06 09:31] LABS: Calcium 8.5 mg/dL (8.5-10.1); Magnesium 2.4 mg/dL (1.5-2.5); Potassium 3.5 meq/L (3.5-5.1)
--- NOTE | 2017-10-06 13:35 | P.PN ---
Subjective Interval history: Follow-up acute kidney injury, bilateral lower extremity cellulitis and UTI. Patient has no complaints seen with . PT noted patient is restless. Physical Exam Vital signs: Vital Signs 10/05/17 16:00 10/05/17 20:00 10/06/17 00:00 Temperature 97.7 F 97.8 F 97.9 F Pulse Rate 78 81 77 Respiratory Rate 18 18 18 Blood Pressure 115/53 L 90/40 L 95/49 L Pulse Oximetry 98 94 L 77 L 10/06/17 08:00 10/06/17 12:00 Temperature 97.7 F 97.4 F L Pulse Rate 84 79 Respiratory Rate 20 Blood Pressure 102/50 L 123/59 L Pulse Oximetry 95 96 Intake & Output 10/05/17 10/06/17 10/06/17 18:59 06:59 18:59 Intake Total 800 / 800 590 / 590 Balance 800 / 800 590 / 590 Intake: IV 350 / 350 INVanz Inj 500 MG In NS Inj 100 100 / 100 ML @ 100 mls/hr IV.SIG Q24H RE[facility]I Rx#:[id number] NS Inj 250 ML @ Wide Open IV. 250 / 250 SIG BOLUS ONE Rx#:[id number] Oral 800 / 800 240 / 240 Other: # Voids 4 Date of Last Bowel Movement 10/04/17 Narrative: Gen: Well-developed and well-nourished in no distress Cardiovascular: Regular rate and rhythm. No murmurs, rubs or gallops. Respiratory: Lungs clear to auscultation bilaterally. No wheezes or rhonchi. Abdomen: Soft, nontender, positive distention. No peritoneal signs. Musculoskeletal: No gross deformities. 2+ pitting lower extremity edema, left greater than right. Skin: Improving erythema of the lower extremities Neuro: Sensory and motor grossly intact. Cranial nerves II through XII grossly intact. Results - Labs CBC & Chem 7: 10/03/17 04:50 10/06/17 07:00 Laboratory Results - last 24 hr 10/06/17 07:00 Sodium 143 Potassium 3.5 Chloride 103 Carbon Dioxide 24.0 Anion Gap 16 H BUN 54 H Creatinine 4.21 H Estimated GFR 14 L Random Glucose 69 L Calcium 8.5 Magnesium 2.4 Microbiology 10/02/17 18:17 Clean Catch Urine Urine Culture - Final Escherichia coli ESBL positive - Procedures Sono-guided paracentesis Vascath Assessment and Plan - Plan 1. Acute renal failure with hyperkalemia and acidosis. MARIAMA possibly prerenal vs ATN from infection/hypotension/ and GI losses. Now on HD x2 improving acidosis but creatinine slightly worse today. Nonoliguric HD next session tomorrow per renal Renal ultrasound shows no obstruction Discontinue bicarb infusion. Nephrology consulted, status post Vas-Cath 2. Cirrhosis/ascites Status post paracentesis 1 month ago Ultrasound guided paracentesis 6 L removed Patient restless today will obtain ammonia level and treat accordingly 3. Bilateral lower extremity cellulitis Likely secondary to edema E. coli ESBL UTI Stable continue IV ertapenem and daptomycin per ID 4. GERD/hyperlipidemia Continue home Protonix Holding statin as patient with transaminitis 5. Diarrhea patient on antibiotics for cellulitis. Resolving. Ordered C. difficile and continue Lactinex 6. 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 DVT prophylaxis with SCD and early ambulation. INR elevated at 1.8. He is already auto anticoagulated. Per hematology, low intensity anticoagulation would put him at a significantly increased risk of bleeding given his poor hepatic synthetic function, baseline elevation in coagulation profile as well as previous history of massive upper GI bleeding Discharge Planning: Home with PT when cleared by renal and infectious disease
--- NOTE | 2017-10-06 14:15 | P.PNNP ---
Subjective Interval history: Alert with at bedside. Creatinine at 4.21. No shortness of breath. Lower extremity edema is improving. <Zully Magallanes - Last Filed: 10/06/17 14:12> Physical Exam Vital signs: Vital Signs 10/05/17 16:00 10/05/17 20:00 10/06/17 00:00 Temperature 97.7 F 97.8 F 97.9 F Pulse Rate 78 81 77 Respiratory Rate 18 18 18 Blood Pressure 115/53 L 90/40 L 95/49 L Pulse Oximetry 98 94 L 77 L 10/06/17 08:00 10/06/17 12:00 Temperature 97.7 F 97.4 F L Pulse Rate 84 79 Respiratory Rate 20 Blood Pressure 102/50 L 123/59 L Pulse Oximetry 95 96 Intake & Output 10/05/17 10/06/17 10/06/17 18:59 06:59 18:59 Intake Total 800 / 800 590 / 590 Balance 800 / 800 590 / 590 Intake: IV 350 / 350 INVanz Inj 500 MG In NS Inj 100 100 / 100 ML @ 100 mls/hr IV.SIG Q24H [facility] Rx#:[id number] NS Inj 250 ML @ Wide Open IV. 250 / 250 SIG BOLUS ONE Rx#:[id number] Oral 800 / 800 240 / 240 Other: # Voids 4 Date of Last Bowel Movement 10/04/17 - Constitutional no acute distress - Routine HEENT Exam Head: Present: normocephalic ENT: Present: mucous membranes moist - Routine Neck Exam Present: supple, JVD - Routine Respiratory Exam Present: CTA bilaterally - Routine Cardiovascular Exam Present: RRR - Routine Abdominal Exam Present: soft, normoactive bowel sounds, distended. Absent: tenderness - Routine Extremities Exam Present: edema, vascular access - Routine Skin Exam Present: dry, warm - Routine Neurological Exam Present: alert, oriented X3 - Routine Psychiatric Exam Present: cooperative <Zully Magallanes - Last Filed: 10/06/17 14:12> Vital signs: Vital Signs 10/06/17 16:00 10/06/17 20:31 10/07/17 00:48 Temperature 97.2 F L 96.9 F L 96.9 F L Pulse Rate 97 H 79 79 Respiratory Rate 20 18 16 Blood Pressure 100/47 L 111/56 L 120/58 L Pulse Oximetry 98 93 L 94 L 10/07/17 04:32 10/07/17 06:38 10/07/17 08:00 Temperature 97.8 F 97.7 F Pulse Rate 98 H 85 75 Respiratory Rate 16 17 Blood Pressure 140/65 105/48 L Pulse Oximetry 94 L 99 Intake & Output 10/06/17 10/07/17 10/07/17 18:59 06:59 18:59 Intake Total 120 / 120 120 / 120 Balance 120 / 120 120 / 120 Weight 81.6 kg Intake: Oral 120 / 120 120 / 120 Other: # Voids 3 2 # Bowel Movements 1 <Warner Sellers - Last Filed: 10/07/17 13:38> Assessment and Plan - Assessment (1) Acute kidney injury Code(s): N17.9 - Acute kidney failure, unspecified Status: Acute Plan: Code(s): N17.9 - Acute kidney failure, unspecified Status: Acute Plan: Acute kidney injury with a creatinine of 6.32 and potassium level of 6 on day of consult Per in Dr. Gibson's office, his creatinine was 5. Creatinine was noted to be 1.24 on 09/12/17. MARIAMA possibly ATN from infection/hypotension/ and GI losses. Renal ultrasound: Bilateral echogenic kidneys concerning for medical renal disease. The kidneys are normal in size. Right renal cysts. Creatinine at 4.21 from 3.99 Avoid nephrotoxins and hypotension Continue to hold diuretics Vas cath placed and hemodialysis started 10/04 with UF of 1 liters Will monitor urinary output, renal panel, and watch for renal recovery. Hemodialysis tomorrow (2) Ascites Code(s): R18.8 - Other ascites Status: Acute Plan: S/p paracentesis 10/03 (3) Cellulitis Code(s): L03.90 - Cellulitis, unspecified Status: Acute Plan: ID consulted and managing Continue antibiotics/ daptomycin/ Invanz <Zully Magallanes - Last Filed: 10/06/17 14:12> - Assessment (1) Acute kidney injury Code(s): N17.9 - Acute kidney failure, unspecified Status: Acute (2) Ascites Code(s): R18.8 - Other ascites Status: Acute (3) Cellulitis Code(s): L03.90 - Cellulitis, unspecified Status: Acute - Attending Attestation Patient seen and examined, agree with above. Continue HD, watch for renal recovery. <Warner Sellers - Last Filed: 10/07/17 13:38>
[2017-10-06] MEDS: Ertapenem Inj 500 MG in Sodium Chlor 0.9% Inj 100 ML IV.SIG SCH (21:54)
[2017-10-06] MEDS: DAPTOmycin Inj 650 MG in Sodium Chlor 0.9% Inj 100 ML IV.SIG SCH (21:55)
[2017-10-07 05:41] LABS: Baso % (Auto) 0.4 % (0.0-2.0); Eos # (Auto) 0.1 th/mm3 (0.0-0.4); Hematocrit 31.5 % (39.0-51.0); Mean Corpuscular HGB Conc 34.8 % (32.0-36.0); Mean Corpuscular Hemoglobin 33.9 pg (27.0-34.0); Mean Corpuscular Volume 97.4 fL (80.0-100.0); Mean Platelet Volume 7.8 fL (7.0-11.0); Mono # (Auto) 0.5 th/mm3 (0.0-0.9); Neut # (Auto) 5.8 th/mm3 (1.8-7.7); Neut % (Auto) 77.6 % (16.0-70.0); Platelet Count 96 th/mm3 (150-450); Red Blood Count 3.24 mil/mm3 (4.50-5.90); Red Cell Distribution Width 16.9 % (11.6-17.2); White Blood Count 7.5 th/mm3 (4.0-11.0)
[2017-10-07 05:45] LABS: Carbon Dioxide 23.6 meq/L (21.0-32.0); Magnesium 2.3 mg/dL (1.5-2.5); Potassium 3.6 meq/L (3.5-5.1)
[2017-10-07 07:52] LABS: Platelet Morphology Normal (Normal)
--- NOTE | 2017-10-07 12:40 | P.PNID ---
Subjective Remarks: Patient says he feels okay. Now sitting on the commode and using his index finger and rubbing around the nose in circles clockwise continuously. Not stopping when asked to stop. 2 days ago he was is going around in circles clockwise pushing his walker in front of him. 3 days ago he was turning his lunch tray around in circles in a clockwise direction. His notes that he has been doing that only during this admission and not before. No complaints. says he has itching at the face. No fevers. This is an 82-year-old white male who presented. to the emergency department on 10/01/2017. The patient was sent to the emergency department because of abnormal labs and he was also complaining of worsening abdominal swelling and worsening lower extremity edema and pain in his lower extremities. The patient was recently discharged from the hospital. He is known to me from the recent hospitalization. At that time, he had bilateral lower extremity cellulitis, and he was treated with IV antibiotics and discharged on p.o. Keflex. He finished the Keflex and was seen by his primary physician, who then put him on doxycycline because it was felt that the cellulitis had not resolved. Because of edema, he was put on diuretics as well. The patient underwent a Doppler ultrasound of his extremities and it showed right [id number] nonocclusive thrombus and also a popliteal cyst on the right. He was started on dialysis and has been treated with 2 dialysis treatments. He had a urinalysis, which showed 9 white cells and the urine culture came back with ESBL Escherichia coli. The patient underwent paracentesis and a 7.3 liters of clear yellow fluid was removed. He was noted to have acute kidney disease and has been started on dialysis. Past Medical History: PAST MEDICAL HISTORY: Cirrhosis of the liver, hypercholesteremia, gastroesophageal reflux disease, diabetes mellitus, ascites, history of bilateral knee replacements, cellulitis of the lower extremities. Allergies/Adverse Reactions: Allergies ibuprofen Adverse Reaction (Severe, Verified 10/01/17 14:51) cirrhosis cannot take due to liver morphine Adverse Reaction (Severe, Verified 10/01/17 14:51) Nausea/Vomiting naproxen Adverse Reaction (Severe, Verified 10/01/17 14:51) cirrhosis cant take due to liver Objective Vital Signs 10/06/17 16:00 10/06/17 20:31 10/07/17 00:48 Temperature 97.2 F L 96.9 F L 96.9 F L Pulse Rate 97 H 79 79 Respiratory Rate 20 18 16 Blood Pressure 100/47 L 111/56 L 120/58 L Pulse Oximetry 98 93 L 94 L 10/07/17 04:32 10/07/17 06:38 10/07/17 08:00 Temperature 97.8 F 97.7 F Pulse Rate 98 H 85 75 Respiratory Rate 16 17 Blood Pressure 140/65 105/48 L Pulse Oximetry 94 L 99 Intake & Output 10/06/17 10/07/17 10/07/17 18:59 06:59 18:59 Intake Total 120 / 120 120 / 120 Balance 120 / 120 120 / 120 Weight 81.6 kg Intake: Oral 120 / 120 120 / 120 Other: # Voids 3 2 # Bowel Movements 1 10/02/17 18:17 Clean Catch Urine Urine Culture - Final Escherichia coli ESBL positive 10/02/17 09:43 Fluid - Ascites Fluid Gram Stain - Final 10/02/17 09:43 Fluid - Ascites Fluid Body Fluid Culture - Final Lab - Hematology Results 10/07/17 04:51 WBC 7.5 RBC 3.24 L Hgb 11.0 L Hct 31.5 L MCV 97.4 MCH 33.9 MCHC 34.8 RDW 16.9 Plt Count 96 L D MPV 7.8 Prelim Diff (Auto) Slide review pending Neut % (Auto) 77.6 H Lymph % (Auto) 13.0 Mora % (Auto) 7.0 Eos % (Auto) 2.0 Baso % (Auto) 0.4 Neut # (Auto) 5.8 Lymph # (Auto) 1.0 Mora # (Auto) 0.5 Eos # (Auto) 0.1 Baso # (Auto) 0.0 WBC Differential . Diff Scan Auto diff confirmed Differential Comment . Platelet Estimate Low L Platelet Morphology Normal Lab - Chemistry Results 10/06/17 10/06/17 10/07/17 07:00 15:33 04:57 Sodium 143 143 Potassium 3.5 3.6 Chloride 103 107 Carbon Dioxide 24.0 23.6 Anion Gap 16 H 12 BUN 54 H 58 H Creatinine 4.21 H 3.84 H Estimated GFR 14 L 15 L Random Glucose 69 L 93 Calcium 8.5 8.0 L Magnesium 2.4 2.3 Ammonia 14 Imaging: ITS Impressions Venous Doppler Study 10/01/17 15:34 CONCLUSION: 1. Nonocclusive thrombus. Renal vein on the right below the knee. 2. Popliteal cyst on the right. 3. Generalized edema. Abdomen/Bladder Ultrasound 10/02/17 00:00 CONCLUSION: 1. Bilateral echogenic kidneys concerning for medical renal disease. The kidneys are normal in size. 2. Right renal cysts. 3. Ascites. Paracentesis Ultrasound 10/02/17 00:00 CONCLUSION: Uncomplicated ultrasound-guided paracentesis. Central Venous Line 10/03/17 00:00 CONCLUSION: 1. Uncomplicated line placement as above. Physical Exam: GENERAL: No acute distress. HEENT: The head is atraumatic. Extraocular movements grossly intact. Pupils reactive to light. No icterus. Oropharynx moist mucosa without lesions. NECK: Supple without adenopathy. LUNGS: Clear breath sounds. HEART: Regular S1 and S2 with a 3/6 systolic murmur at the left sternal border. ABDOMEN: Bowel sounds present. mildly distended, soft, nontender. EXTREMITIES: The left leg still has erythema slight decreased. Present from left knee down to the distal tibia. Mild erythema at the dorsum of the foot on the left. There is also mild erythema at the dorsum of the left foot. The right foot has mild erythema at the dorsal aspect at the base of the toes. SKIN: No diffuse rash. The patient has chronic hypopigmented areas of the skin throughout. NEUROLOGIC: Nonfocal. PSYCHIATRIC: Normal mood. Calm and cooperative. Assessment and Plan - Plan IMPRESSION: 1. Urinary tract infection due to ESBL Escherichia coli. 2. Cellulitis of the left leg persistent despite previous antibiotics. 3. Acute kidney disease. 4. Deep venous thrombosis of the right lower extremity. 5. Repetitive motion. ? pathologic. RECOMMENDATIONS: 1. Continue Ertapenem for the ESBL Escherichia coli. 2. Continue Daptomycin for the cellulitis. The patient probably has resistant bacterial infection causing the cellulitis since he has not responded to previous antibiotics. 3. Monitor clinical status. 4. Follow up urine culture today. 5. Consider psychiatric consult.
--- NOTE | 2017-10-07 13:31 | P.PNNP ---
Subjective Interval history: Seen earlier in day. Hemodialysis planned for today. Does not have any complaints. Appears confused at times, took cloths off. Bed alarm on. <Zully Magallanes - Last Filed: 10/07/17 13:24> Physical Exam Vital signs: Vital Signs 10/06/17 16:00 10/06/17 20:31 10/07/17 00:48 Temperature 97.2 F L 96.9 F L 96.9 F L Pulse Rate 97 H 79 79 Respiratory Rate 20 18 16 Blood Pressure 100/47 L 111/56 L 120/58 L Pulse Oximetry 98 93 L 94 L 10/07/17 04:32 10/07/17 06:38 10/07/17 08:00 Temperature 97.8 F 97.7 F Pulse Rate 98 H 85 75 Respiratory Rate 16 17 Blood Pressure 140/65 105/48 L Pulse Oximetry 94 L 99 Intake & Output 10/06/17 10/07/17 10/07/17 18:59 06:59 18:59 Intake Total 120 / 120 120 / 120 Balance 120 / 120 120 / 120 Weight 81.6 kg Intake: Oral 120 / 120 120 / 120 Other: # Voids 3 2 # Bowel Movements 1 - Constitutional mild distress - Routine HEENT Exam Head: Present: normocephalic - Routine Neck Exam Present: supple. Absent: JVD - Routine Respiratory Exam Present: decreased breath sounds. Absent: rales, wheezes - Routine Cardiovascular Exam Present: RRR. Absent: murmur - Routine Abdominal Exam Present: soft, normoactive bowel sounds, distended - Routine Extremities Exam Present: edema, vascular access - Routine Skin Exam Present: dry - Routine Neurological Exam Present: moving all extremities, normal speech - Routine Psychiatric Exam Present: cooperative <Zully Magallanes - Last Filed: 10/07/17 13:24> Vital signs: Vital Signs 10/06/17 16:00 10/06/17 20:31 10/07/17 00:48 Temperature 97.2 F L 96.9 F L 96.9 F L Pulse Rate 97 H 79 79 Respiratory Rate 20 18 16 Blood Pressure 100/47 L 111/56 L 120/58 L Pulse Oximetry 98 93 L 94 L 10/07/17 04:32 10/07/17 06:38 10/07/17 08:00 Temperature 97.8 F 97.7 F Pulse Rate 98 H 85 75 Respiratory Rate 16 17 Blood Pressure 140/65 105/48 L Pulse Oximetry 94 L 99 10/07/17 12:00 Temperature 97.2 F L Pulse Rate 78 Respiratory Rate 18 Blood Pressure 120/56 L Pulse Oximetry 98 Intake & Output 10/06/17 10/07/17 10/07/17 18:59 06:59 18:59 Intake Total 120 / 120 120 / 120 Balance 120 / 120 120 / 120 Weight 81.6 kg Intake: Oral 120 / 120 120 / 120 Other: # Voids 3 2 # Bowel Movements 1 <Warner Sellers - Last Filed: 10/07/17 14:52> Assessment and Plan - Assessment (1) Acute kidney injury Code(s): N17.9 - Acute kidney failure, unspecified Status: Acute Plan: Code(s): N17.9 - Acute kidney failure, unspecified Status: Acute Plan: Acute kidney injury with a creatinine of 6.32 and potassium level of 6 on day of consult Per in Dr. Gibson's office, his creatinine was 5. Creatinine was noted to be 1.24 on 09/12/17. MARIAMA possibly ATN from infection/hypotension/ and GI losses. Renal ultrasound: Bilateral echogenic kidneys concerning for medical renal disease. The kidneys are normal in size. Right renal cysts. Avoid nephrotoxins and hypotension Continue to hold diuretics Vas cath placed and hemodialysis started 10/04 Will monitor urinary output, renal panel, and watch for renal recovery. Hemodialysis today will remove fluid as tolerated Renal panel in AM (2) Ascites Code(s): R18.8 - Other ascites Status: Acute Plan: S/p paracentesis 10/03 (3) Cellulitis Code(s): L03.90 - Cellulitis, unspecified Status: Acute Plan: ID consulted and managing ESBL in urine and cellulitis Continue antibiotics <Zully Magallanes - Last Filed: 10/07/17 13:24> - Assessment (1) Acute kidney injury Code(s): N17.9 - Acute kidney failure, unspecified Status: Acute (2) Ascites Code(s): R18.8 - Other ascites Status: Acute (3) Cellulitis Code(s): L03.90 - Cellulitis, unspecified Status: Acute - Attending Attestation Patient seen in HD unit, develop Hypotension, and became lethargic. Not started on HD yet. Now awake, BP is better, O2 sat 100% on nasal canula. Creatinine is better, will hold HD for now. EKG done, has inferior ischemia, need to follow Troponin. Transfer to [facility]. <Warner Sellers - Last Filed: 10/07/17 14:52>
--- NOTE | 2017-10-07 14:41 | P.PN ---
Subjective Interval history: Nursing denies any deterioration since last night. Patient's reports that he was circling/rotating his food tray. Patient himself denies any nausea vomiting headaches. thinks that his abdomen is getting distended again. Patient says he has mixed stool but has some formation in it. Physical Exam Vital signs: Vital Signs 10/06/17 16:00 10/06/17 20:31 10/07/17 00:48 Temperature 97.2 F L 96.9 F L 96.9 F L Pulse Rate 97 H 79 79 Respiratory Rate 20 18 16 Blood Pressure 100/47 L 111/56 L 120/58 L Pulse Oximetry 98 93 L 94 L 10/07/17 04:32 10/07/17 06:38 10/07/17 08:00 Temperature 97.8 F 97.7 F Pulse Rate 98 H 85 75 Respiratory Rate 16 17 Blood Pressure 140/65 105/48 L Pulse Oximetry 94 L 99 10/07/17 12:00 Temperature 97.2 F L Pulse Rate 78 Respiratory Rate 18 Blood Pressure 120/56 L Pulse Oximetry 98 Intake & Output 10/06/17 10/07/17 10/07/17 18:59 06:59 18:59 Intake Total 120 / 120 120 / 120 Balance 120 / 120 120 / 120 Weight 81.6 kg Intake: Oral 120 / 120 120 / 120 Other: # Voids 3 2 # Bowel Movements 1 Narrative: Abdomen seems quite distended but nontender and soft Clear lungs bilaterally Alert and oriented 3 Results - Labs CBC & Chem 7: 10/14/17 04:45 10/14/17 04:45 Laboratory Results - last 24 hr 10/06/17 10/07/17 10/07/17 15:33 04:51 04:57 WBC 7.5 RBC 3.24 L Hgb 11.0 L Hct 31.5 L MCV 97.4 MCH 33.9 MCHC 34.8 RDW 16.9 Plt Count 96 L D MPV 7.8 Prelim Diff (Auto) Slide review pending Neut % (Auto) 77.6 H Lymph % (Auto) 13.0 [place] % (Auto) 7.0 Eos % (Auto) 2.0 Baso % (Auto) 0.4 Neut # (Auto) 5.8 Lymph # (Auto) 1.0 [place] # (Auto) 0.5 Eos # (Auto) 0.1 Baso # (Auto) 0.0 WBC Differential . Diff Scan Auto diff confirmed Differential Comment . Platelet Estimate Low L Platelet Morphology Normal Sodium 143 Potassium 3.6 Chloride 107 Carbon Dioxide 23.6 Anion Gap 12 BUN 58 H Creatinine 3.84 H Estimated GFR 15 L Random Glucose 93 Calcium 8.0 L Magnesium 2.3 Ammonia 14 - Procedures Sono-guided paracentesis Vascath Assessment and Plan - Plan 1. Acute renal failure with hyperkalemia and acidosis. MARIAMA possibly prerenal vs ATN from infection/hypotension/ and GI losses. HD, improving acidosis renal ultrasound shows no obstruction Nephrology following, has Vas-Cath 2. Cirrhosis/ascites Status post paracentesis 1 month ago Ultrasound guided paracentesis 6 L removed Patient restless today will obtain ammonia level and treat accordingly repeat paracentesis 3. Bilateral lower extremity cellulitis Likely secondary to edema Stable continue IV ertapenem and daptomycin per ID ESBL UTI - continue ertapenem as above and daptomycin 4. GERD/hyperlipidemia Continue home Protonix Holding statin as patient with transaminitis Diarrhea patient on antibiotics for cellulitis. - c diff specimen still pending collection - continue Lactinex 6. 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 DVT prophylaxis with SCD and early ambulation. INR elevated at 1.8. He is already anticoagulated. Per hematology, low intensity anticoagulation would put him at a significantly increased risk of bleeding given his poor hepatic synthetic function, baseline elevation in coagulation profile as well as previous history of massive upper GI bleeding
--- NOTE | 2017-10-07 14:55 | P.PNADD ---
Addendum to Inpatient Note Reason for Addendum: Additional Documentation Additional information: Yolande called on patient at 14:15 due to AMS and hypotension of 75/43. Dr. Perry and Amari responded to Dialysis suite. Patient had not received dialysis yet. Upon arrival patient appeared to be in moderate distress, breathing hard, slumped over, slight tremor. While awaiting EKG the patient's SpO2 dipped to 78%, though this was likely result of equipment error as patient recovered to 100% with better contact between probe and finger. PE:VS: 94/54, 87 BPM, 95% on 3L T=96.9 We evaluated the patient. Last Documented Vital Signs Temperature 97.2 F L 10/07/17 12:00 Pulse Rate 78 10/07/17 12:00 Respiratory Rate 18 10/07/17 12:00 Blood Pressure 120/56 L 10/07/17 12:00 Pulse Oximetry 98 10/07/17 12:00 Unable to follow commands Sluggish pupils Cardiovascular RRR Lungs CTAB Abdomen distended and tense, non tender GCS of 10 EKG showed sinus rhythm with possible T wave abnormality, consideration for inferior ischemia. A/P: Ms. Khan is an 82yom admitted for cellulitis, cirrhosis and hepatorenal failure found to be obtunded when brought down to dialysis suite. Likely related to encephalopathy. EKG as above. Trend troponins Transfer to C Dr. Perry spoke with Dr. Londono who accepted the transfer
[2017-10-07] MEDS ORDERED: Albumin Human 25% Inj 100 ML IV.SIG ONE (14:59)
--- NOTE | 2017-10-07 16:52 | CT ---
EXAM DATE: 10/07/2017 4:50 PM EDT AGE/SEX: 82 years / Male INDICATIONS: Altered mental status. CLINICAL DATA: This is the patient's initial encounter. Patient reports that signs and symptoms have been present for 1 day and indicates a pain score of Nonresponsive. MEDICAL/SURGICAL HISTORY: Hypercholesterolemia. Gastroesophageal reflux disease. Kidney disease, d ialysis. None. RADIATION DOSE: 56.35 CTDI (mGy) COMPARISON: No prior exams available for comparison. TECHNIQUE: CT of the head without contrast. Using automated exposure control and adjustment of the mA and/or kV according to patient size, radiation dose was kept as low as reasonably achievable to ob tain optimal diagnostic quality images. DICOM format image data is available electronically for revi ew and comparison. FINDINGS: Cerebrum: Moderate diffuse cerebral atrophy. The ventricles are normal for degree of atrophy. Mild-t o-moderate periventricular white matter hypodensities. No evidence of midline shift, mass lesion, hem orrhage or acute infarction. No extraaxial fluid collections are seen. Posterior Fossa: The cerebellum and brainstem are intact. The 4th ventricle is midline. The cerebe llopontine angle is unremarkable. Extracranial: The visualized portion of the orbits is intact. Skull: The calvaria is intact. No evidence of skull fracture. CONCLUSION: 1. Senescent changes with mild to moderate periventricular ischemic white matter demyelination. 2. No acute intracranial abnormality. Electronically signed by: Win Quinones MD 10/07/2017 4:51 PM EDT
[2017-10-07] MEDS: Lactobacillus Acidophilus/L. Spores Tablet PO SCH ×3 (18:40→20:30)
--- NOTE | 2017-10-07 19:10 | P.CONCC ---
History of Present Illness Service: Critical Care Medicine Consult date: 10/07/17 Requesting Physician: Saúl Mccord Reason for Consult: hypotension Primary Care Provider: PROVIDER NON STAFF Family Provider: Finesse Araujo Chief Complaint: Swelling of the legs and redness of the legs. History of Present Illness: This is an 82-year-old male with end-stage liver disease who originally presented with acute kidney injury which during this hospitalization is progressed to requiring renal replacement therapy. He was in dialysis today when he had sudden onset acute hypotension associated with acute encephalopathy and altered mental status. Rapid response was called and he was brought emergently to the ICU. I evaluated the patient on arrival to the ICU. He was somnolent with a systolic of 70. I ordered 100 cc of 25% albumin emergently to be given IV and after this his blood pressure improved to 117 systolic and his mental status improved significantly. Looking at past documentation, it appears that he is delirious and altered at baseline and when his blood pressure improved his mental status improved what appears to be baseline for him. I also discussed his care with his who is at bedside who says after his blood pressure improved that his mental status is near baseline again. We did order stat head CT which is without acute bleeding. ROS is difficult to obtain from the patient but appears to be negative for chest pain, shortness of breath, or any acute symptoms. Review of Systems unobtainable due to mental status PMFSH - History History Provided By: Family Member, Medical Record - Medical History Medical History: Medical History (Last Updated 10/03/17 @ 08:04 by Artem Lee MD) Abnormal findings on esophagogastroduodenoscopy (EGD) Ascites Cataract (lens) fragments in eye following cataract surgery, bilateral Cellulitis Cirrhosis of liver GERD (gastroesophageal reflux disease) History of diabetes mellitus Hypercholesteremia Kidney disease Left wrist fracture Non-occlusive thrombus Nonalcoholic steatohepatitis (BOYKIN) Upper GI bleed - Surgical History Surgical History: Surgical History (Last Updated 10/03/17 @ 08:04 by Artem Lee MD) History of left knee replacement Status post right knee replacement - Tobacco History Second Hand Smoke Exposure: No Tobacco Use In Past 30 Days: No Smoking Status: Former smoker Tobacco Type: Cigarettes - Alcohol History How Often Do You Have a Drink Containing Alcohol: Never - Substance Use History Substance History: No History of Abuse - Travel History Recent Travel in the [place] Within the Last 8 Weeks: No Recent Travel Out of the Country Within the Last 8 Weeks: No - Immunization History Tetanus Immunization: Unsure Hx Influenza Vaccine This Season: Yes Medications and Allergies Active Medications: Active Medications Acetaminophen (Tylenol) 650 mg PO UNSCH PRN PRN Reason: SEE LABEL COMMENTS Bisacodyl (Dulcolax Supp) 10 mg RECTAL DAILY PRN PRN Reason: SEVERE CONSITIPATION Clonidine HCl (Catapres) 0.1 mg PO UNSCH PRN PRN Reason: SEE LABEL COMMENTS Diphenhydramine HCl (Benadryl) 25 mg PO UNSCH PRN PRN Reason: SEE LABEL COMMENTS Gelatin (Gelfoam 12 Mm/7 Mm Topical) 1 foam TOPICAL PRN PRN PRN Reason: help stop bleeding from site Gentamicin Sulfate (Gentamicin Inj) 20 mg OTHER WITH DIALYSIS PRN PRN Reason: Dwell Gentamycin Lock Last Admin: 10/04/17 12:30 Dose: 20 mg Heparin Sodium (Porcine) (Heparin Central Flush) 0 unit IV.FLUSH DAILY PRN PRN Reason: SEE DOSE INSTRUCTIONS Heparin Sodium (Porcine) (Heparin Inj) 8,000 units IV.FLUSH WITH DIALYSIS PRN PRN Reason: for machine prime Heparin Sodium (Porcine) (Heparin Inj) 1,000 units OTHER WITH DIALYSIS PRN PRN Reason: Dwell Heparin to Fill Catheter Sodium Chloride (Ns Inj) 1,000 mls @ 0 mls/hr OTHER .Q0M PRN PRN Reason: for prime and rinse back Sodium Chloride (Ns Inj) 1,000 mls @ 200 mls/hr OTHER .Q5H PRN PRN Reason: for dialyzer flush PRN Sodium Chloride (Ns Inj) 1,000 mls @ 0 mls/hr IV.CONT .Q0M PRN PRN Reason: hypotension / volume replace Albumin Human (Flexbumin 25% Inj) 100 mls @ 60 mls/hr IV.SIG WITH DIALYSIS PRN PRN Reason: hypotension / volume replace Last Infusion: 10/04/17 13:44 Dose: Infused Daptomycin 650 mg/ Sodium (Chloride) 100 mls @ 200 mls/hr IV.SIG Q48H REJI Last Admin: 10/06/17 21:55 Dose: 200 mls/hr Ertapenem 500 mg/ Sodium (Chloride) 100 mls @ 100 mls/hr IV.SIG Q24H REJI Last Admin: 10/06/17 21:54 Dose: 100 mls/hr Lactobacillus Acidophilus (Lactinex) 1 tab PO TID [facility] Last Admin: 10/07/17 18:40 Dose: Not Given Lactulose (Lactulose Liq) 30 ml PO DAILY PRN PRN Reason: SEVERE CONSITIPATION Mannitol (Mannitol Inj) 12.5 gm IV.PUSH PRN PRN PRN Reason: hypotension / volume replace Nitroglycerin (Nitrostat Sl) 0.4 mg SL Q5M PRN PRN Reason: CHEST PAIN Ondansetron HCl (Zofran Odt) 4 mg PO Q6H PRN PRN Reason: NAUSEA OR VOMITING Ondansetron HCl (Zofran Odt) 4 mg PO UNSCH PRN PRN Reason: NAUSEA OR VOMITING Pantoprazole Sodium (Protonix) 40 mg PO BID [facility] Last Admin: 10/06/17 21:54 Dose: 40 mg Sennosides (Senokot) 17.2 mg PO Q12H PRN PRN Reason: Moderate Constipation Sodium Chloride (Ns Flush) 0 ml IV.FLUSH PRN PRN PRN Reason: SEE DOSE INSTRUCTIONS Sodium Chloride (Ns Flush) 5 ml IV.FLUSH PRN PRN PRN Reason: flush each lumen during HD Allergies Allergy/AdvReac Type Severity Reaction Status Date / Time ibuprofen AdvReac Severe cirrhosis Verified 10/01/17 14:51 morphine AdvReac Severe Nausea/Vomi Verified 10/01/17 14:51 ting naproxen AdvReac Severe cirrhosis Verified 10/01/17 14:51 Home Medications Medication Instructions Recorded Confirmed Type bumetanide 2 mg PO BID 10/01/17 10/01/17 History doxycycline hyclate 100 mg PO BID 10/01/17 10/01/17 History metolazone 10 mg PO DIRECTED 10/01/17 10/01/17 History pantoprazole 40 mg PO BID 10/01/17 10/01/17 History potassium chloride 10 meq PO BID 10/01/17 10/01/17 History pravastatin 10 mg PO DAILY 10/01/17 10/01/17 History Physical Exam Vital signs: Vital Signs 10/06/17 20:31 10/07/17 00:48 10/07/17 04:32 Temperature 36.1 C L 36.1 C L 36.6 C Pulse Rate 79 79 98 H Respiratory Rate 18 16 16 Blood Pressure 111/56 L 120/58 L 140/65 Pulse Oximetry 93 L 94 L 94 L 10/07/17 06:38 10/07/17 08:00 10/07/17 12:00 Temperature 36.5 C 36.2 C L Pulse Rate 85 75 78 Respiratory Rate 17 18 Blood Pressure 105/48 L 120/56 L Pulse Oximetry 99 98 10/07/17 16:00 Temperature 36.8 C Pulse Rate 75 Respiratory Rate 16 Blood Pressure 89/54 L Pulse Oximetry 100 Intake & Output 10/06/17 10/07/17 10/07/17 18:59 06:59 18:59 Intake Total 120 / 120 120 / 120 Balance 120 / 120 120 / 120 Weight 81.6 kg Intake: Oral 120 / 120 120 / 120 Other: # Voids 3 2 Date of Last Bowel Movement 10/04/17 # Bowel Movements 1 Narrative: GENERAL: Elderly male, lying in bed, acute distress due to altered mental status HEENT: Normocephalic. Atraumatic. Pupils equal, round, reactive, conjugate. Sclera are icteric. Mucous membranes are moist NECK: Trachea is midline. There is no JVD. CHEST: Equal chest rise. Nasal cannula oxygen. SPO2 97%. CARDIOVASCULAR: On my initial evaluation systolic blood pressures in the low 70s. Heart rate is normal, regular rhythm. Sinus by telemetry. After 100 cc of 25% albumin, systolic blood pressures improved to 117 systolic. Heart rate remains normal sinus rhythm. ABDOMEN: Soft, nontender, severely distended with a positive fluid wave. Dullness to percussion. No guarding. MUSCULOSKELETAL: Pulses 2+. No peripheral edema. NEUROLOGICAL: On my initial evaluation the patient was a RASS -3, withdrawal to pain, moves all extremities, but not following commands. After fluid resuscitation improved blood pressure, patient's RASS is now -1. He is oriented to person, and still remains CAM +, but now follows simple commands. Septic Shock Reassessment Septic shock perfusion: reassessment completed Assessment and Plan - Assessment and Plan Plan: Assessment: 82-year-old male with end-stage liver disease complicated by acute on chronic renal failure which is likely at this point hepatorenal syndrome. I long discussion with his in which we talked about the prognosis of a patient this age with hepatorenal syndrome and end-stage liver disease, and if he continued to clinically decline, this would likely be a terminal hospitalization for him. Patient's states that she did not think that he would want aggressive resuscitative measures, and elects to make patient DNR. In addition, we talked about getting his family together and have long-term goals of care discussions. I will consult palliative care to assist with this discussion. For his acute hypotensive episode which clearly was life- threatening, I think this was fluid shifts secondary to his end-stage liver disease, poor albumin, severe ascites, and acute kidney injury. It appears that with albumin resuscitative fluids, his hypotension is resolved. Agree with observing in ICU overnight, after that we will return the patient to the hospitalist service. Active problems: Acute shock, likely hypovolemic secondary to fluid shifts from end-stage liver disease Acute metabolic encephalopathy-secondary to hypoperfusion and hypotension Plan: Albumin IV fluid resuscitation DNR CODE STATUS Palliative care consultation Monitor on telemetry Frequent vital checks Hold off on dialysis today We will cancel the ultrasound-guided paracentesis for today. Would recommend ultrasound-guided paracentesis once more heme dynamically stable. Agree with admission to the ICU for close monitoring. If the patient remains stable, critical care medicine will sign off to the hospital service in the morning. On my evaluation, this patient was critically ill with life-threatening hypotension and shock, including kidney injury, liver dysfunction, hypotension leading to cerebral hypoperfusion. I have spent in excess of 39 minutes discontinuously in the care and management of this patient. This time is exclusive of procedures, and includes, but is not limited to, evaluation of the patient, review of the medical record, discussions with family, consultants, nursing staff, or respiratory therapy, and documentation in the medical record. Code Status: DNR
[2017-10-07] MEDS: Ertapenem Inj 500 MG in Sodium Chlor 0.9% Inj 100 ML IV.SIG SCH (22:04)
[2017-10-08 06:25] LABS: Albumin 2.8 g/dL (3.4-5.0); Phosphorus 3.6 mg/dL (2.5-4.9); Potassium 3.4 meq/L (3.5-5.1)
[2017-10-08] MEDS: Lactobacillus Acidophilus/L. Spores Tablet PO SCH ×3 (08:58→17:39)
--- NOTE | 2017-10-08 09:52 | P.PNNP ---
Subjective Interval history: Mentation has improved today. Creatinine at 3.26 from 3.84. Unsure of urinary output as patient has been incontinent but according to nursing patient had large amount in bed today. <Zully Magallanes - Last Filed: 10/08/17 09:45> Physical Exam Vital signs: Vital Signs 10/07/17 12:00 10/07/17 16:00 10/07/17 20:40 Temperature 97.2 F L 98.3 F Pulse Rate 78 75 Respiratory Rate 18 16 Blood Pressure 120/56 L 89/54 L Pulse Oximetry 98 100 100 10/07/17 23:35 10/08/17 04:05 10/08/17 08:00 Temperature Pulse Rate Respiratory Rate Blood Pressure Pulse Oximetry 100 98 93 L Intake & Output 10/07/17 10/08/17 10/08/17 18:59 06:59 18:59 Other: Date of Last Bowel Movement 10/04/17 10/04/17 - Constitutional no acute distress - Routine HEENT Exam Head: Present: normocephalic ENT: Present: mucous membranes moist - Routine Neck Exam Present: supple. Absent: JVD - Routine Respiratory Exam Present: decreased breath sounds. Absent: rales, rhonchi - Routine Cardiovascular Exam Present: RRR - Routine Abdominal Exam Present: soft, normoactive bowel sounds - Routine Extremities Exam Present: edema Comments: lower extremity edema is improving - Routine Skin Exam Present: dry, warm - Routine Neurological Exam Present: alert, oriented X3 - Detailed Neurological Exam: Coma Scale Verbal Response: Oriented Motor Response: Obey commands - Routine Psychiatric Exam Present: cooperative <Zully Magallanes - Last Filed: 10/08/17 09:45> Vital signs: Vital Signs 10/08/17 12:00 10/08/17 15:36 10/08/17 18:00 Temperature 98.2 F 97.9 F 98.2 F Pulse Rate 69 72 71 Respiratory Rate 31 H 18 21 Blood Pressure 112/63 114/59 L 100/55 L Pulse Oximetry 95 99 97 10/08/17 19:55 10/08/17 20:00 10/09/17 00:00 Temperature 98.4 F 98.2 F Pulse Rate 75 76 Respiratory Rate 22 26 H Blood Pressure 102/51 L 112/56 L Pulse Oximetry 96 97 98 10/09/17 04:36 10/09/17 06:00 10/09/17 09:12 Temperature 98.7 F Pulse Rate 75 76 Respiratory Rate 24 Blood Pressure 109/54 L Pulse Oximetry 96 96 Intake & Output 10/08/17 10/09/17 10/09/17 18:59 06:59 18:59 Intake Total 240 / 240 650 / 650 100 / 100 Output Total 300 / 300 300 / 300 Balance -60 / -60 350 / 350 100 / 100 Weight 69.9 kg Intake: IV 300 / 300 100 / 100 Cubicin Inj 650 MG In NS Inj 200 / 200 100 ML @ 200 mls/hr IV.SIG Q48H REJI Rx#:[id number] INVanz Inj 500 MG In NS Inj 100 100 / 100 100 / 100 ML @ 100 mls/hr IV.SIG Q24H REJI Rx#:[id number] Oral 240 / 240 350 / 350 Output: Urine 300 / 300 300 / 300 Other: # Voids 5 # Incontinent Voids 1 Date of Last Bowel Movement 10/04/17 10/04/17 10/09/17 # Bowel Movements 0 <Warner Sellers - Last Filed: 10/09/17 11:44> Assessment and Plan - Assessment (1) Acute kidney injury Code(s): N17.9 - Acute kidney failure, unspecified Status: Acute Plan: Code(s): N17.9 - Acute kidney failure, unspecified Status: Acute Plan: Acute kidney injury with a creatinine of 6.32 and potassium level of 6 on day of consult Per in Dr. Gibson's office, his creatinine was 5. Creatinine was noted to be 1.24 on 09/12/17. MARIAMA possibly ATN from infection/hypotension/ and GI losses. Also possible hepatorenal syndrome Renal ultrasound: Bilateral echogenic kidneys concerning for medical renal disease. The kidneys are normal in size. Right renal cysts. Avoid nephrotoxins and hypotension Continue to hold diuretics Vas cath placed and hemodialysis started 10/04 Will monitor urinary output, renal panel, and watch for renal recovery. Unable to do hemodialysis yesterday as helicat was called. Creatinine is improving at 3.26 from 3.86, unsure of urine output as patient is incontinent but per nursing had large amount in bed Will maintain strict I+O discussed with nursing, will hold hemodialysis as creatinine is improving. (2) Ascites Code(s): R18.8 - Other ascites Status: Acute Plan: S/p paracentesis 10/03 (3) Cellulitis Code(s): L03.90 - Cellulitis, unspecified Status: Acute Plan: ID consulted and managing ESBL in urine and cellulitis Continue antibiotics <Zully Magallanes - Last Filed: 10/08/17 09:45> - Assessment (1) Acute kidney injury Code(s): N17.9 - Acute kidney failure, unspecified Status: Acute (2) Ascites Code(s): R18.8 - Other ascites Status: Acute (3) Cellulitis Code(s): L03.90 - Cellulitis, unspecified Status: Acute - Attending Attestation Patient seen and examined, agree with above. Hold HD for now, has some improvement in the Creatinine. Getting Paracentesis. Follow the urine out put and BMP./ HD as needed. <Warner Sellers - Last Filed: 10/09/17 11:44>
--- NOTE | 2017-10-08 12:41 | P.PN ---
Subjective Interval history: Patient did have high K yesterday in dialysis where he was noted to be hypertensive with a blood pressure in the 80s systolic and the patient complained of a headache and he appeared somewhat more somnolent than usual. Yolande was called, evaluated by resident team within initiated stroke alert. Was transferred to the ICU. CT head was done after blood pressure normalized, was negative for any acute issues. Patient's mental status returned to baseline. Nursing otherwise does not report any deterioration since being in the ICU since yesterday evening. Physical Exam Vital signs: Vital Signs 10/07/17 16:00 10/07/17 20:40 10/07/17 23:35 Temperature 98.3 F Pulse Rate 75 Respiratory Rate 16 Blood Pressure 89/54 L Pulse Oximetry 100 100 100 10/08/17 04:05 10/08/17 08:00 10/08/17 12:00 Temperature 98.0 F 98.2 F Pulse Rate 68 69 Respiratory Rate 26 H 31 H Blood Pressure 140/63 112/63 Pulse Oximetry 98 91 L 95 Intake & Output 10/07/17 10/08/17 10/08/17 18:59 06:59 18:59 Other: Date of Last Bowel Movement 10/04/17 10/04/17 10/04/17 Narrative: Lying in bed, awake, alert, no acute distress Unlabored breathing, clear lungs bilaterally Abdomen is distended, soft Has diffuse jaundice No facial droop, no slurred speech Results - Labs CBC & Chem 7: 10/14/17 04:45 10/14/17 04:45 Laboratory Results - last 24 hr 10/07/17 10/07/17 10/08/17 14:40 14:40 05:33 POC Hgb (Calc) 10.2 L POC Hct 30.0 L POC Sodium 140 Sodium 144 POC Potassium 3.4 L Potassium 3.4 L POC Chloride 101 L Chloride 107 Carbon Dioxide 24.0 Anion Gap 13 POC BUN 50 H BUN 57 H Creatinine 3.26 H POC Creatinine 3.7 H Estimated GFR 18 L POC Glucose 174 H Random Glucose 109 H Calcium 9.0 D Phosphorus 3.6 Troponin I 0.03 Albumin 2.8 L - Imaging Impressions Head CT 10/07/17 00:00 CONCLUSION: 1. Senescent changes with mild to moderate periventricular ischemic white matter demyelination. 2. No acute intracranial abnormality. - Procedures Sono-guided paracentesis Vascath Assessment and Plan - Plan Shock - resolved possibly secondary to fluid imbalance given ESRD, resolved now, no evidence of true septic components patient has been afebrile Acute renal failure with hyperkalemia and acidosis. MARIAMA possibly prerenal vs ATN from infection/hypotension/ and GI losses. HD, improving acidosis renal ultrasound shows no obstruction Nephrology following, has Vas-Cath Cirrhosis/ascites Status post paracentesis 1 month ago Ultrasound guided paracentesis 6 L removed repeat paracentesis ordered today Bilateral lower extremity cellulitis Likely secondary to edema Stable continue IV ertapenem and daptomycin per ID ESBL UTI - continue ertapenem as above and daptomycin GERD/hyperlipidemia Continue home Protonix Holding statin as patient with transaminitis Diarrhea patient on antibiotics for cellulitis. - c diff specimen still pending collection - continue Lactinex Distal DVT. 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 Per hematology, it looks chronic does not recommend anticoagulation at this time and repeat ultrasound in 4-6 months DVT prophylaxis with SCD and early ambulation. INR elevated at 1.8. He is already auto anticoagulated. Per hematology, low intensity anticoagulation would put him at a significantly increased risk of bleeding given his poor hepatic synthetic function, baseline elevation in coagulation profile as well as previous history of massive upper GI bleeding
[2017-10-08 13:52] LABS: INR 2.2 Ratio; Prothrombin Time 22.3 sec (9.8-11.6)
--- NOTE | 2017-10-08 15:10 | ECG ---
Date Performed: 10/07/2017 Time Performed: 14:34:52 PTAGE: 82 years EKG: Sinus rhythm MODERATE T-WAVE ABNORMALITY ABNORMAL ECG PREVIOUS TRACING : 01/16/2016 13.30 DOCTOR: Dano Mathews Interpretating Date/Time 10/08/2017 15:08:13
--- NOTE | 2017-10-08 15:57 | P.PNID ---
Subjective Remarks: Patient was transferred to intensive care unit because of hypotension. Was also noted to have mental status change(Somnolence) Currently feels okay. No complaint. Going for paracentesis. Currently calm and responsive and alert No complaints. No fevers. Denies chills. This is an 82-year-old white male who presented. to the emergency department on 10/01/2017. The patient was sent to the emergency department because of abnormal labs and he was also complaining of worsening abdominal swelling and worsening lower extremity edema and pain in his lower extremities. The patient was recently discharged from the hospital. He is known to me from the recent hospitalization. At that time, he had bilateral lower extremity cellulitis, and he was treated with IV antibiotics and discharged on p.o. Keflex. He finished the Keflex and was seen by his primary physician, who then put him on doxycycline because it was felt that the cellulitis had not resolved. Because of edema, he was put on diuretics as well. The patient underwent a Doppler ultrasound of his extremities and it showed right [id number] nonocclusive thrombus and also a popliteal cyst on the right. He was noted to have acute kidney disease is receiving dialysis. ID consulted for ESBL E. coli UTI. Was also noted to have non-resolving cellulitis of the left leg below the knee. Antibiotics: Ertapenem. Daptomycin. Past Medical History: PAST MEDICAL HISTORY: Cirrhosis of the liver, hypercholesteremia, gastroesophageal reflux disease, diabetes mellitus, ascites, history of bilateral knee replacements, cellulitis of the lower extremities. Allergies/Adverse Reactions: Allergies ibuprofen Adverse Reaction (Severe, Verified 10/01/17 14:51) cirrhosis cannot take due to liver morphine Adverse Reaction (Severe, Verified 10/01/17 14:51) Nausea/Vomiting naproxen Adverse Reaction (Severe, Verified 10/01/17 14:51) cirrhosis cant take due to liver Objective Vital Signs 10/07/17 16:00 10/07/17 20:40 10/07/17 23:35 Temperature 98.3 F Pulse Rate 75 Respiratory Rate 16 Blood Pressure 89/54 L Pulse Oximetry 100 100 100 10/08/17 04:05 10/08/17 08:00 10/08/17 12:00 Temperature 98.0 F 98.2 F Pulse Rate 68 69 Respiratory Rate 26 H 31 H Blood Pressure 140/63 112/63 Pulse Oximetry 98 91 L 95 10/08/17 15:36 Temperature 97.9 F Pulse Rate 72 Respiratory Rate 18 Blood Pressure 114/59 L Pulse Oximetry 99 Intake & Output 10/07/17 10/08/17 10/08/17 18:59 06:59 18:59 Other: Date of Last Bowel Movement 10/04/17 10/04/17 10/04/17 Lab - Hematology Results 10/07/17 10/07/17 04:51 14:40 WBC 7.5 RBC 3.24 L Hgb 11.0 L POC Hgb (Calc) 10.2 L Hct 31.5 L POC Hct 30.0 L MCV 97.4 MCH 33.9 MCHC 34.8 RDW 16.9 Plt Count 96 L D MPV 7.8 Prelim Diff (Auto) Slide review pending Neut % (Auto) 77.6 H Lymph % (Auto) 13.0 [place]bour % (Auto) 7.0 Eos % (Auto) 2.0 Baso % (Auto) 0.4 Neut # (Auto) 5.8 Lymph # (Auto) 1.0 [place] # (Auto) 0.5 Eos # (Auto) 0.1 Baso # (Auto) 0.0 WBC Differential . Diff Scan Auto diff confirmed Differential Comment . Platelet Estimate Low L Platelet Morphology Normal Lab - Chemistry Results 10/06/17 10/07/17 10/07/17 15:33 04:57 14:40 POC Sodium Sodium 143 POC Potassium Potassium 3.6 POC Chloride Chloride 107 Carbon Dioxide 23.6 Anion Gap 12 POC BUN BUN 58 H Creatinine 3.84 H POC Creatinine Estimated GFR 15 L POC Glucose Random Glucose 93 Calcium 8.0 L Phosphorus Magnesium 2.3 Ammonia 14 Troponin I 0.03 Albumin 10/07/17 10/08/17 14:40 05:33 POC Sodium 140 Sodium 144 POC Potassium 3.4 L Potassium 3.4 L POC Chloride 101 L Chloride 107 Carbon Dioxide 24.0 Anion Gap 13 POC BUN 50 H BUN 57 H Creatinine 3.26 H POC Creatinine 3.7 H Estimated GFR 18 L POC Glucose 174 H Random Glucose 109 H Calcium 9.0 D Phosphorus 3.6 Magnesium Ammonia Troponin I Albumin 2.8 L Imaging: ITS Impressions Venous Doppler Study 10/01/17 15:34 CONCLUSION: 1. Nonocclusive thrombus. Renal vein on the right below the knee. 2. Popliteal cyst on the right. 3. Generalized edema. Abdomen/Bladder Ultrasound 10/02/17 00:00 CONCLUSION: 1. Bilateral echogenic kidneys concerning for medical renal disease. The kidneys are normal in size. 2. Right renal cysts. 3. Ascites. Paracentesis Ultrasound 10/02/17 00:00 CONCLUSION: Uncomplicated ultrasound-guided paracentesis. Central Venous Line 10/03/17 00:00 CONCLUSION: 1. Uncomplicated line placement as above. Head CT 10/07/17 00:00 CONCLUSION: 1. Senescent changes with mild to moderate periventricular ischemic white matter demyelination. 2. No acute intracranial abnormality. Physical Exam: GENERAL: No acute distress. HEENT: The head is atraumatic. Extraocular movements grossly intact. Pupils reactive to light. No icterus. Oropharynx moist mucosa without lesions. NECK: Supple without adenopathy. LUNGS: Clear breath sounds. HEART: Regular S1 and S2 with a 3/6 systolic murmur at the left sternal border. ABDOMEN: Bowel sounds present. mildly distended, soft, nontender. EXTREMITIES: Left leg erythema is now markedly improved. Very mild erythema at the dorsum of the foot on the left. The right foot has mild erythema at the dorsal aspect at the base of the toes. SKIN: No diffuse rash. The patient has chronic hypopigmented areas of the skin throughout. NEUROLOGIC: Nonfocal. PSYCHIATRIC: Normal mood. Calm and cooperative. Assessment and Plan - Plan IMPRESSION: 1. Urinary tract infection due to ESBL Escherichia coli. 2. Cellulitis of the left leg now looks improved. 3. Acute kidney disease. 4. Deep venous thrombosis of the right lower extremity. 5. Recurrent ascites/cirrhosis. RECOMMENDATIONS: 1. Continue Ertapenem for the ESBL Escherichia coli. Repeat urine culture ordered but not yet obtained. 2. Continue Daptomycin for the cellulitis. The patient probably has resistant bacterial infection causing the cellulitis since he has not responded to previous antibiotics. 3. Monitor clinical status. 4. Follow up urine culture today.
[2017-10-08] MEDS ORDERED: Lidocaine PF 1% Inj 30 ML Vial ONE (17:23)
[2017-10-08] MEDS ORDERED: Albumin Human 25% Inj 200 ML IV.SIG ONE (17:52)
--- NOTE | 2017-10-08 19:11 | P.PNPAL ---
Palliative care was consulted to assist with clarification of medical treatment goals. Left message for , Mary Lou Bill to arrange time for family meeting on 10/09/17, awaiting return call.
[2017-10-08] MEDS: DAPTOmycin Inj 650 MG in Sodium Chlor 0.9% Inj 100 ML IV.SIG SCH (20:00)
[2017-10-08] MEDS: Ertapenem Inj 500 MG in Sodium Chlor 0.9% Inj 100 ML IV.SIG SCH (22:50)
--- NOTE | 2017-10-09 07:33 | US ---
EXAM DATE: 10/08/2017 5:09 PM EDT AGE/SEX: 82 years / Male INDICATIONS: Ascites. CLINICAL DATA: This is the patient's subsequent encounter. Patient reports that signs and symptoms h ave been present for 1 week and indicates a pain score of 3/10. MEDICAL/SURGICAL HISTORY: . Cirrhosis. Gastroesophageal reflux disease. Hypercholesterolemia. K idney disease. Cellulitis. Ascites. . Left wrist fracture. Bilateral Cataract surgery. Failed total knee replacement - bilaterally. COMPARISON: [facility] – [place], [place] PARACENTESIS ABD W/IMAGE, 10/02/2017. . FLUID: Total volume of 8000 cc of clear, yellow fluid was removed. Fluid was discarded. Paracentesis was the rapeutic only. . . TECHNIQUE: Ultrasound guidance for abdominal paracentesis. Paracentesis. The risks, benefits, and alternatives to ultrasound guided paracentesis were explained to the patient in detail including the risk of bleeding and infection. Written and verbal informed consent was obt ained. With the patient on the ultrasound table, ultrasound imaging was used to select the most appropriate approach for paracentesis. Overlying skin was prepped and draped in the usual sterile fashion and wi th a local anesthetic, a dermatotomy was made with an 11 blade scalpel. A 6 [place] [id number] ca theter was introduced into the peritoneal cavity and fluid was collected. Post procedure scanning reveals no hematoma or other complication. The patient tolerated the procedu re well and left the ultrasound suite in stable condition. FINDINGS: Large amount of ascites. CONCLUSION: 1. Uncomplicated large volume ultrasound guided paracentesis. Electronically signed by: Win Quinones MD 10/09/2017 7:31 AM EDT
[2017-10-09] MEDS: Lactobacillus Acidophilus/L. Spores Tablet PO SCH ×3 (08:00→17:33)
--- NOTE | 2017-10-09 10:32 | P.PNNP ---
Subjective Interval history: Denies any shortness of breath. S/P paracentesis yesterday tolerated well. Hemodialysis is on hold. <Zully Magallanes - Last Filed: 10/09/17 10:27> Physical Exam Vital signs: Vital Signs 10/08/17 12:00 10/08/17 15:36 10/08/17 18:00 Temperature 98.2 F 97.9 F 98.2 F Pulse Rate 69 72 71 Respiratory Rate 31 H 18 21 Blood Pressure 112/63 114/59 L 100/55 L Pulse Oximetry 95 99 97 10/08/17 19:55 10/08/17 20:00 10/09/17 00:00 Temperature 98.4 F 98.2 F Pulse Rate 75 76 Respiratory Rate 22 26 H Blood Pressure 102/51 L 112/56 L Pulse Oximetry 96 97 98 10/09/17 04:36 10/09/17 06:00 10/09/17 09:12 Temperature 98.7 F Pulse Rate 75 76 Respiratory Rate 24 Blood Pressure 109/54 L Pulse Oximetry 96 96 Intake & Output 10/08/17 10/09/17 10/09/17 18:59 06:59 18:59 Intake Total 240 / 240 650 / 650 100 / 100 Output Total 300 / 300 300 / 300 Balance -60 / -60 350 / 350 100 / 100 Weight 69.9 kg Intake: IV 300 / 300 100 / 100 Cubicin Inj 650 MG In NS Inj 200 / 200 100 ML @ 200 mls/hr IV.SIG Q48H REJI Rx#:[id number] INVanz Inj 500 MG In NS Inj 100 100 / 100 100 / 100 ML @ 100 mls/hr IV.SIG Q24H REJI Rx#:[id number] Oral 240 / 240 350 / 350 Output: Urine 300 / 300 300 / 300 Other: # Voids 5 # Incontinent Voids 1 Date of Last Bowel Movement 10/04/17 10/04/17 10/09/17 # Bowel Movements 0 - Constitutional no acute distress - Routine HEENT Exam Head: Present: normocephalic ENT: Present: mucous membranes moist - Routine Neck Exam Present: supple. Absent: JVD - Routine Respiratory Exam Present: decreased breath sounds. Absent: rales, rhonchi - Routine Cardiovascular Exam Present: RRR, tachycardia - Routine Abdominal Exam Present: soft, normoactive bowel sounds, tenderness, distended - Routine Extremities Exam Present: edema Comments: improving - Routine Skin Exam Present: erythema, dry, warm - Routine Neurological Exam Present: alert - Routine Psychiatric Exam Present: cooperative <Zully Magallanes - Last Filed: 10/09/17 10:27> Assessment and Plan - Assessment (1) Acute kidney injury Code(s): N17.9 - Acute kidney failure, unspecified Status: Acute Plan: Code(s): N17.9 - Acute kidney failure, unspecified Status: Acute Plan: Acute kidney injury with a creatinine of 6.32 and potassium level of 6 on day of consult Per in Dr. Gibson's office, his creatinine was 5. Creatinine was noted to be 1.24 on 09/12/17. MARIAMA possibly ATN from infection/hypotension/ and GI losses. Also possible hepatorenal syndrome Renal ultrasound: Bilateral echogenic kidneys concerning for medical renal disease. The kidneys are normal in size. Right renal cysts. Creatinine at 3.86 ->3.26 no new labs today UOP at 600ml/24 hours Avoid nephrotoxins and hypotension Continue to hold diuretics Vas cath placed and hemodialysis started 10/04, hemodialysis on hold Will monitor urinary output, renal panel, and watch for renal recovery. Renal panel in AM (2) Ascites Code(s): R18.8 - Other ascites Status: Acute Plan: S/p paracentesis 10/03 (3) Cellulitis Code(s): L03.90 - Cellulitis, unspecified Status: Acute Plan: ID consulted and managing ESBL in urine and cellulitis Continue antibiotics <Zully Magallanes - Last Filed: 10/09/17 10:27> - Assessment (1) Acute kidney injury Code(s): N17.9 - Acute kidney failure, unspecified Status: Chronic (2) Ascites Code(s): R18.8 - Other ascites Status: Chronic (3) Lower extremity deep venous thrombosis Code(s): I82.409 - Acute embolism and thrombosis of unspecified deep veins of unspecified lower extremity Status: Chronic (4) Nonalcoholic steatohepatitis (BOYKIN) Code(s): K75.81 - Nonalcoholic steatohepatitis (BOYKIN) Status: Chronic - Attending Attestation Patient seen and examined, agree with above. Creatinine improving and K is normal. <Warner Sellers - Last Filed: 10/30/17 23:32>
--- NOTE | 2017-10-09 11:52 | P.PNIM ---
Subjective Interval history: Patient reports he is feeling much better. He inquired about when he will be going home but admitted that he has generalized weakness. Physical Exam Vital signs: Vital Signs 10/08/17 12:00 10/08/17 15:36 10/08/17 18:00 Temperature 98.2 F 97.9 F 98.2 F Pulse Rate 69 72 71 Respiratory Rate 31 H 18 21 Blood Pressure 112/63 114/59 L 100/55 L Pulse Oximetry 95 99 97 10/08/17 19:55 10/08/17 20:00 10/09/17 00:00 Temperature 98.4 F 98.2 F Pulse Rate 75 76 Respiratory Rate 22 26 H Blood Pressure 102/51 L 112/56 L Pulse Oximetry 96 97 98 10/09/17 04:36 10/09/17 06:00 10/09/17 09:12 Temperature 98.7 F Pulse Rate 75 76 Respiratory Rate 24 Blood Pressure 109/54 L Pulse Oximetry 96 96 Intake & Output 10/08/17 10/09/17 10/09/17 18:59 06:59 18:59 Intake Total 240 / 240 650 / 650 100 / 100 Output Total 300 / 300 300 / 300 Balance -60 / -60 350 / 350 100 / 100 Weight 69.9 kg Intake: IV 300 / 300 100 / 100 Cubicin Inj 650 MG In NS Inj 200 / 200 100 ML @ 200 mls/hr IV.SIG Q48H REJI Rx#:[id number] INVanz Inj 500 MG In NS Inj 100 100 / 100 100 / 100 ML @ 100 mls/hr IV.SIG Q24H REJI Rx#:[id number] Oral 240 / 240 350 / 350 Output: Urine 300 / 300 300 / 300 Other: # Voids 5 # Incontinent Voids 1 Date of Last Bowel Movement 10/04/17 10/04/17 10/09/17 # Bowel Movements 0 Narrative: GENERAL: Elderly and frail female in no acute distress. CARDIOVASCULAR: Normal rate and regular rhythm without murmurs, gallops, or rubs. RESPIRATORY: Good respiratory efforts. Breath sounds equal and clear to auscultation bilaterally. GASTROINTESTINAL: Abdomen is distended, obvious ascites. No rebound tenderness. MUSCULOSKELETAL: 2+ bilateral lower extremity edema NEURO: Alert & Oriented x4 to person, place, time, situation. Moves all ext x4 PSYCH: Appropriate mood and affect. Results - Labs CBC & Chem 7: 10/07/17 04:51 10/08/17 05:33 Laboratory Results - last 24 hr 10/08/17 13:20 PT 22.3 H INR 2.2 - Imaging Impressions Paracentesis Ultrasound 10/08/17 00:00 CONCLUSION: 1. Uncomplicated large volume ultrasound guided paracentesis. - Procedures Sono-guided paracentesis Vascath Assessment and Plan - Plan 82-year-old male with cirrhosis, hepatorenal syndrome, end-stage renal disease on hemodialysis Shock -likely hypovolemic shock. Resolved possibly secondary to fluid fluid shift after dialysis, resolved. Acute renal failure with hyperkalemia and acidosis. MARIAMA possibly prerenal vs ATN from infection/hypotension/ and GI losses. HD, improving acidosis renal ultrasound shows no obstruction Nephrology following, has Vas-Cath Cirrhosis/ascites Status post paracentesis 1 month ago Ultrasound guided paracentesis 6 L removed repeat paracentesis on 10/08 Bilateral lower extremity cellulitis Likely secondary to edema Stable continue IV ertapenem and daptomycin per ID ESBL UTI - continue ertapenem as above and daptomycin GERD/hyperlipidemia Continue home Protonix Holding statin as patient with transaminitis Diarrhea patient on antibiotics for cellulitis. - c diff specimen still pending collection - continue Lactinex Distal DVT. 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 Per hematology, it looks chronic does not recommend anticoagulation at this time and repeat ultrasound in 4-6 months
[2017-10-09] MEDS: Acetaminophen 325 MG Tablet PO PRN (12:19)
--- NOTE | 2017-10-09 12:48 | P.CONPAL ---
Consult Service: Palliative Care Requesting Physician: Narayan Hines Reason for Consult: a. To assist with evaluation and management of symptoms including: encephalopathy. b. To assist medical decision maker(s) with: better understanding of current medical conditions; weighing benefits/burdens of medical treatment options; making medical treatment decisions. Primary Care Provider: PROVIDER NON STAFF History of Present Illness History of Present Illness: Mr. Coles is an 82 year old male with past medical history of end stage liver disease, ascites, cirrhosis, GERD, diabetes, hypercholesterolemia, nonalcoholic steatohepatitis (BOYKIN) and upper GI bleed. Patient presented to [facility] on 10/01/17 with worsening abdominal swelling and pressure, lower extremity edema, redness and pain that has been increasing over the past 2 prior. Was prescribed outpatient Bumex and metolazone , though had not yet started it. He reported recent diagnosis of cirrhosis, with paracentesis. He had been treated for his bilateral lower extremity cellulitis with outpatient doxycycline without improvement in his symptoms. He denied any shortness of breath, chest pain, nausea, vomiting, diarrhea, or fever /chills. Initial emergency room evaluation revealed: * VS: Temp 97.5, pulse 83, respiratory rate 24, blood pressure 111/40, oxygen saturation 96% * WBC 11.5, hemoglobin 11.6, hematocrit 33, platelet count 229, neutrophils 75.7 % * PT 18.4, INR 1.8, PTT 31.9 * Sodium 135, potassium 6.0, chloride 103, BUN 94, creatinine 6.19, GFR 9, glucose 76 * Total bilirubin 2.4, AST 103, ALT 46, alkaline phosphatase 87 * Total protein 6.7, albumin 2.4 * Venous Doppler ultrasound: nonocclusive thrombus renal vein on the right below the knee, popliteal cyst on the right, generalized edema. Patient was admitted with acute renal failure, cirrhosis/ascites, lower extremity cellulitis. Nephrology, Dr. Sellers was consulted who felt renal injury prerenal vs ATN from infection, hypotension and GI loss. He had hemodialysis treatments on 10/03 and 10/04. Dr. Lee, hematology was consulted for nonocclusive thrombosis with recommendations for conservative management with observation alone. He felt the patient's risk of adverse outcomes with even low intensity anticoagulation would put him at a significantly increased risk of bleeding given his poor hepatic synthetic function, baseline elevation in coagulation profile as well as previous history of massive upper GI bleeding. Infectious disease, Dr. Heath was consulted for cellulitis and UTI with ESBL E. Coli with recommendations for antibiotic coverage. Rapid response was called on 10/07/17 and he was brought emergently to the ICU. He was somnolent with a systolic pressure of 70. He was given 100 cc of 25% albumin, his blood pressure improved to 117 systolic and his mental status improved significantly. Stat CT head senescent changes with mild to moderate periventricular ischemic white matter demyelination. Dialysis is currently on hold. 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 Function/Cognitive Trajectory: Patient has had ongoing trajectory of decline including functional and cognitive changes while he was relatively independent at home he was requiring more care, was getting lost when driving per his 's report. Review of Systems All other systems reviewed negative except as stated in HPI PMFSH - History History Provided By: Family Member, Medical Record - Medical History Medical History: Medical History (Last Updated 10/03/17 @ 08:04 by Artem Lee MD) Abnormal findings on esophagogastroduodenoscopy (EGD) Ascites Cataract (lens) fragments in eye following cataract surgery, bilateral Cellulitis Cirrhosis of liver GERD (gastroesophageal reflux disease) History of diabetes mellitus Hypercholesteremia Kidney disease Left wrist fracture Non-occlusive thrombus Nonalcoholic steatohepatitis (BOYKIN) Upper GI bleed - Surgical History Surgical History: Surgical History (Last Updated 10/03/17 @ 08:04 by Artem Lee MD) History of left knee replacement Status post right knee replacement - Tobacco History Second Hand Smoke Exposure: No Tobacco Use In Past 30 Days: No Smoking Status: Former smoker Tobacco Type: Cigarettes - Alcohol History How Often Do You Have a Drink Containing Alcohol: Never - Substance Use History Substance History: No History of Abuse - Travel History Recent Travel in the [place] Within the Last 8 Weeks: No Recent Travel Out of the Country Within the Last 8 Weeks: No - Immunization History Tetanus Immunization: Unsure Hx Influenza Vaccine This Season: Yes Medications and Allergies Active Medications: Active Medications Acetaminophen (Tylenol) 650 mg PO UNSCH PRN PRN Reason: SEE LABEL COMMENTS Bisacodyl (Dulcolax Supp) 10 mg RECTAL DAILY PRN PRN Reason: SEVERE CONSITIPATION Clonidine HCl (Catapres) 0.1 mg PO UNSCH PRN PRN Reason: SEE LABEL COMMENTS Diphenhydramine HCl (Benadryl) 25 mg PO UNSCH PRN PRN Reason: SEE LABEL COMMENTS Gelatin (Gelfoam 12 Mm/7 Mm Topical) 1 foam TOPICAL PRN PRN PRN Reason: help stop bleeding from site Gentamicin Sulfate (Gentamicin Inj) 20 mg OTHER WITH DIALYSIS PRN PRN Reason: Dwell Gentamycin Lock Last Admin: 10/04/17 12:30 Dose: 20 mg Heparin Sodium (Porcine) (Heparin Central Flush) 0 unit IV.FLUSH DAILY PRN PRN Reason: SEE DOSE INSTRUCTIONS Heparin Sodium (Porcine) (Heparin Inj) 8,000 units IV.FLUSH WITH DIALYSIS PRN PRN Reason: for machine prime Heparin Sodium (Porcine) (Heparin Inj) 1,000 units OTHER WITH DIALYSIS PRN PRN Reason: Dwell Heparin to Fill Catheter Sodium Chloride (Ns Inj) 1,000 mls @ 0 mls/hr OTHER .Q0M PRN PRN Reason: for prime and rinse back Sodium Chloride (Ns Inj) 1,000 mls @ 200 mls/hr OTHER .Q5H PRN PRN Reason: for dialyzer flush PRN Sodium Chloride (Ns Inj) 1,000 mls @ 0 mls/hr IV.CONT .Q0M PRN PRN Reason: hypotension / volume replace Albumin Human (Flexbumin 25% Inj) 100 mls @ 60 mls/hr IV.SIG WITH DIALYSIS PRN PRN Reason: hypotension / volume replace Last Infusion: 10/04/17 13:44 Dose: Infused Daptomycin 650 mg/ Sodium (Chloride) 100 mls @ 200 mls/hr IV.SIG Q48H [facility] Last Infusion: 10/08/17 23:11 Dose: Infused Ertapenem 500 mg/ Sodium (Chloride) 100 mls @ 100 mls/hr IV.SIG Q24H REJI Last Infusion: 10/09/17 07:17 Dose: Infused Lactobacillus Acidophilus (Lactinex) 1 tab PO TID [facility] Last Admin: 10/09/17 08:00 Dose: 1 tab Lactulose (Lactulose Liq) 30 ml PO DAILY PRN PRN Reason: SEVERE CONSITIPATION Mannitol (Mannitol Inj) 12.5 gm IV.PUSH PRN PRN PRN Reason: hypotension / volume replace Nitroglycerin (Nitrostat Sl) 0.4 mg SL Q5M PRN PRN Reason: CHEST PAIN Ondansetron HCl (Zofran Odt) 4 mg PO Q6H PRN PRN Reason: NAUSEA OR VOMITING Ondansetron HCl (Zofran Odt) 4 mg PO UNSCH PRN PRN Reason: NAUSEA OR VOMITING Pantoprazole Sodium (Protonix) 40 mg PO BID REJI Last Admin: 10/09/17 08:00 Dose: 40 mg Sennosides (Senokot) 17.2 mg PO Q12H PRN PRN Reason: Moderate Constipation Sodium Chloride (Ns Flush) 0 ml IV.FLUSH PRN PRN PRN Reason: SEE DOSE INSTRUCTIONS Sodium Chloride (Ns Flush) 5 ml IV.FLUSH PRN PRN PRN Reason: flush each lumen during HD Allergies Allergy/AdvReac Type Severity Reaction Status Date / Time ibuprofen AdvReac Severe cirrhosis Verified 10/01/17 14:51 morphine AdvReac Severe Nausea/Vomi Verified 10/01/17 14:51 ting naproxen AdvReac Severe cirrhosis Verified 10/01/17 14:51 Home Medications Medication Instructions Recorded Confirmed Type bumetanide 2 mg PO BID 10/01/17 10/01/17 History doxycycline hyclate 100 mg PO BID 10/01/17 10/01/17 History metolazone 10 mg PO DIRECTED 10/01/17 10/01/17 History pantoprazole 40 mg PO BID 10/01/17 10/01/17 History potassium chloride 10 meq PO BID 10/01/17 10/01/17 History pravastatin 10 mg PO DAILY 10/01/17 10/01/17 History Advance Directives Living Will: Yes Healthcare Surrogate: Yes (Copies requested) Today's verbally stated goals: Patient is not capacitated to make his own healthcare decisions at this time, uncertain if he will regain capacity. Family/friends goals: desires continued aggressive care at this time. She is certainly open to ongoing conversations regarding comfort focused care should the patient have additional setbacks or decline. She understands that he will from this disease, though hopes to optimize his current medical status and reevaluate from day-to-day. Ethical and Legal Issues: No known concerns at this time. Physical Exam Vital Signs: Vital Signs - 24 hr 10/08/17 12:00 10/08/17 15:36 10/08/17 18:00 Temperature 98.2 F 97.9 F 98.2 F Pulse Rate 69 72 71 Respiratory Rate 31 H 18 21 Blood Pressure 112/63 114/59 L 100/55 L Pulse Oximetry 95 99 97 10/08/17 19:55 10/08/17 20:00 10/09/17 00:00 Temperature 98.4 F 98.2 F Pulse Rate 75 76 Respiratory Rate 22 26 H Blood Pressure 102/51 L 112/56 L Pulse Oximetry 96 97 98 10/09/17 04:36 10/09/17 06:00 10/09/17 09:12 Temperature 98.7 F Pulse Rate 75 76 Respiratory Rate 24 Blood Pressure 109/54 L Pulse Oximetry 96 96 I&O: Intake & Output 10/07/17 10/08/17 10/09/17 10/10/17 06:59 06:59 06:59 06:59 Intake Total 340 / 340 890 / 890 100 / 100 Output Total 600 / 600 Balance 340 / 340 290 / 290 100 / 100 Weight 81.6 kg 69.9 kg Physical Exam: CONSTITUTIONAL/GENERAL: This is an elderly, frail-appearing gentleman. No acute distress. TUBES/LINES/DRAINS: Right vas cath, PIV. SKIN: No jaundice, rashes, or lesions. Ecchymoses on upper extremities. No wounds seen anteriorly. Skin temperature appropriate. Not diaphoretic. HEAD: Atraumatic. Normocephalic. EYES: Pupils equal and round and reactive. Extraocular motions intact. No scleral icterus. No injection or drainage. Fundi not examined. ENT: Hearing grossly normal. Nose without bleeding or purulent drainage. Throat without visible erythema, exudates, masses, or lesions. NECK: Trachea midline. CARDIOVASCULAR: Regular rate and rhythm without murmurs, gallops, or rubs. RESPIRATORY/CHEST: Symmetric, unlabored respirations. Clear to auscultation. GASTROINTESTINAL: Abdomen soft, nondistended. No guarding. Bowel sounds present. GENITOURINARY: Without palpable bladder distension. MUSCULOSKELETAL: Extremities with 2+ edema. No mottling or clubbing. LYMPHATICS: No palpable cervical or supraclavicular adenopathy. NEUROLOGICAL: Awake and alert. Intermittent confusion. Lethargic. Moves all extremities. PSYCHIATRIC: Lethargic. Diagnostic Tests Laboratory: Laboratory Results - last 72 hr 10/06/17 10/07/17 10/07/17 15:33 04:51 04:57 WBC 7.5 RBC 3.24 L Hgb 11.0 L POC Hgb (Calc) Hct 31.5 L POC Hct MCV 97.4 MCH 33.9 MCHC 34.8 RDW 16.9 Plt Count 96 L D MPV 7.8 Prelim Diff (Auto) Slide review pending Neut % (Auto) 77.6 H Lymph % (Auto) 13.0 Loup % (Auto) 7.0 Eos % (Auto) 2.0 Baso % (Auto) 0.4 Neut # (Auto) 5.8 Lymph # (Auto) 1.0 Loup # (Auto) 0.5 Eos # (Auto) 0.1 Baso # (Auto) 0.0 WBC Differential . Diff Scan Auto diff confirmed Differential Comment . Platelet Estimate Low L Platelet Morphology Normal PT INR POC Sodium Sodium 143 POC Potassium Potassium 3.6 POC Chloride Chloride 107 Carbon Dioxide 23.6 Anion Gap 12 POC BUN BUN 58 H Creatinine 3.84 H POC Creatinine Estimated GFR 15 L POC Glucose Random Glucose 93 Calcium 8.0 L Phosphorus Magnesium 2.3 Ammonia 14 Troponin I Albumin 10/07/17 10/07/17 10/08/17 14:40 14:40 05:33 WBC RBC Hgb POC Hgb (Calc) 10.2 L Hct POC Hct 30.0 L MCV MCH MCHC RDW Plt Count MPV Prelim Diff (Auto) Neut % (Auto) Lymph % (Auto) [place] % (Auto) Eos % (Auto) Baso % (Auto) Neut # (Auto) Lymph # (Auto) [place]oup # (Auto) Eos # (Auto) Baso # (Auto) WBC Differential Diff Scan Differential Comment Platelet Estimate Platelet Morphology PT INR POC Sodium 140 Sodium 144 POC Potassium 3.4 L Potassium 3.4 L POC Chloride 101 L Chloride 107 Carbon Dioxide 24.0 Anion Gap 13 POC BUN 50 H BUN 57 H Creatinine 3.26 H POC Creatinine 3.7 H Estimated GFR 18 L POC Glucose 174 H Random Glucose 109 H Calcium 9.0 D Phosphorus 3.6 Magnesium Ammonia Troponin I 0.03 Albumin 2.8 L 10/08/17 13:20 WBC RBC Hgb POC Hgb (Calc) Hct POC Hct MCV MCH MCHC RDW Plt Count MPV Prelim Diff (Auto) Neut % (Auto) Lymph % (Auto) [place]oup % (Auto) Eos % (Auto) Baso % (Auto) Neut # (Auto) Lymph # (Auto) Loup # (Auto) Eos # (Auto) Baso # (Auto) WBC Differential Diff Scan Differential Comment Platelet Estimate Platelet Morphology PT 22.3 H INR 2.2 POC Sodium Sodium POC Potassium Potassium POC Chloride Chloride Carbon Dioxide Anion Gap POC BUN BUN Creatinine POC Creatinine Estimated GFR POC Glucose Random Glucose Calcium Phosphorus Magnesium Ammonia Troponin I Albumin Result Diagrams: 10/07/17 04:51 10/08/17 05:33 Imaging: Venous Doppler Study 10/01/17 15:34 CONCLUSION: 1. Nonocclusive thrombus. Renal vein on the right below the knee. 2. Popliteal cyst on the right. 3. Generalized edema. Abdomen/Bladder Ultrasound 10/02/17 00:00 CONCLUSION: 1. Bilateral echogenic kidneys concerning for medical renal disease. The kidneys are normal in size. 2. Right renal cysts. 3. Ascites. Central Venous Line 10/03/17 00:00 CONCLUSION: 1. Uncomplicated line placement as above. Head CT 10/07/17 00:00 CONCLUSION: 1. Senescent changes with mild to moderate periventricular ischemic white matter demyelination. 2. No acute intracranial abnormality. Paracentesis Ultrasound 10/08/17 00:00 CONCLUSION: 1. Uncomplicated large volume ultrasound guided paracentesis. Procedures: * 10/08/[id number] paracentesis with removal of 8000 cc clear yellow fluid * 10/03/17-right IJ Vas-Cath placement * 10/02/17 ultrasound-guided paracentesis Patient/Family Conference Present at Family Conference: Met with patient and at bedside. Family Conference Time: 75 Family Conference Location: Bedside Issues Discussed: * Palliative care role, purpose, approach * Additional medical, psychosocial, and spiritual history * Patients general health, functional status, and cognitive changes in the months leading up to the current hospitalization * Patient/family understanding of the current medical problems * Patient/family understanding of prognosis * Patients goals of care as best understood from advance directives and/or conversations and/or values * Current medical treatment options and benefits/burdens of those options * Likely scenarios comparing ongoing aggressive care with a transition to comfort measures only * Questions answered to the best of my ability * Palliative care contact information provided Assessment and Plan - Disease Oriented Problem List (1) Ascites (2) Acute kidney injury (3) Cellulitis (4) Lower extremity deep venous thrombosis (5) Abnormal coagulation profile (6) Nonalcoholic steatohepatitis (BOYKIN) Pertinent Non-Medical Issues: Psychosocial: for 60 years, have 3 adopted sons. Retired. From [place]. Served in [employer] during and after [place] [employer]. Worked as a construction ironworker. Spiritual: Gnosticist frances. Legal:Patient is not capacitated to make his own healthcare decisions at this time, uncertain if he will regain capacity. reports patient has written advanced directives, is designated healthcare surrogate. Copies requested. Ethical issues impacting care: No known concerns at this time. Important Contacts: * Mary Lou Coles, : [phone] Prognosis: Overall prognosis is limited given end stage liver stage. Code Status: No Code DNR Plan: * Decision Maker: Patient is not capacitated to make his own healthcare decisions at this time, uncertain if he will regain capacity. reports patient has written advanced directives, is designated healthcare surrogate. Copies requested. * NO CODE * Palliative care met with patient/ family: Desires continued aggressive care at this time short of NO CODE. has a good understanding of patient's current medical condition and that he will continue to have decline over a period of time that he will from liver disease or complications related to. She is open to hospice in the future should patient have further setbacks or decline. * SYMPTOMS: Encephalopathy: Secondary to end-stage liver disease, renal failure , hospitalization etc. Uncertain if this will resolve. Pain: Denies pain at this time. Dyspnea: Denies shortness of breath at this time. Would avoid sedating medications given underlying encephalopathy. * Palliative care number provided. * Palliative care will continue to follow throughout hospital course to assist with symptom management and clarification of goals as needed. Appreciation Thank you for the opportunity to participate in the care of Robby Khan. Attestation Attestation: To help prompt me to consider important information that might be impacting today's encounter and assessment, information from prior notes written by myself or my colleagues may have been "brought forward" into today's note. My signature on this note, however, is an attestation that I personally performed the exam, history, and/or decision-making noted today, and, unless otherwise indicated, the interactions with patient, family, and staff as well as the review of records all occurred today. I also attest that the listed assessment and stated plan reflect my best clinical judgment today based on the combination of historical information, prior notes, and today's exam/ interactions. When time spent is documented, it refers only to time spent today by the signer, or if indicated, combined time spent today by collaborating physician/nurse practitioner.
--- NOTE | 2017-10-09 15:29 | P.PNID ---
Subjective Remarks: Patient was transferred to intensive care unit because of hypotension. Was also noted to have mental status change(Somnolence) Currently feels okay. No complaint. Going for paracentesis. Currently calm and responsive and alert No complaints. No fevers. Denies chills. This is an 82-year-old white male who presented. to the emergency department on 10/01/2017. The patient was sent to the emergency department because of abnormal labs and he was also complaining of worsening abdominal swelling and worsening lower extremity edema and pain in his lower extremities. The patient was recently discharged from the hospital. He is known to me from the recent hospitalization. At that time, he had bilateral lower extremity cellulitis, and he was treated with IV antibiotics and discharged on p.o. Keflex. He finished the Keflex and was seen by his primary physician, who then put him on doxycycline because it was felt that the cellulitis had not resolved. Because of edema, he was put on diuretics as well. The patient underwent a Doppler ultrasound of his extremities and it showed right [id number] nonocclusive thrombus and also a popliteal cyst on the right. He was noted to have acute kidney disease is receiving dialysis. ID consulted for ESBL E. coli UTI. Was also noted to have non-resolving cellulitis of the left leg below the knee. Antibiotics: Ertapenem. Daptomycin. Past Medical History: PAST MEDICAL HISTORY: Cirrhosis of the liver, hypercholesteremia, gastroesophageal reflux disease, diabetes mellitus, ascites, history of bilateral knee replacements, cellulitis of the lower extremities. Allergies/Adverse Reactions: Allergies ibuprofen Adverse Reaction (Severe, Verified 10/01/17 14:51) cirrhosis cannot take due to liver morphine Adverse Reaction (Severe, Verified 10/01/17 14:51) Nausea/Vomiting naproxen Adverse Reaction (Severe, Verified 10/01/17 14:51) cirrhosis cant take due to liver Objective Vital Signs 10/08/17 15:36 10/08/17 18:00 10/08/17 19:55 Temperature 97.9 F 98.2 F Pulse Rate 72 71 Respiratory Rate 18 21 Blood Pressure 114/59 L 100/55 L Pulse Oximetry 99 97 96 10/08/17 20:00 10/09/17 00:00 10/09/17 04:36 Temperature 98.4 F 98.2 F 98.7 F Pulse Rate 75 76 75 Respiratory Rate 22 26 H 24 Blood Pressure 102/51 L 112/56 L 109/54 L Pulse Oximetry 97 98 96 10/09/17 06:00 10/09/17 09:12 10/09/17 12:34 Temperature 97.7 F Pulse Rate 76 73 Respiratory Rate 16 Blood Pressure 105/60 Pulse Oximetry 96 Intake & Output 10/08/17 10/09/17 10/09/17 18:59 06:59 18:59 Intake Total 240 / 240 650 / 650 100 / 100 Output Total 300 / 300 300 / 300 Balance -60 / -60 350 / 350 100 / 100 Weight 69.9 kg Intake: IV 300 / 300 100 / 100 Cubicin Inj 650 MG In NS Inj 200 / 200 100 ML @ 200 mls/hr IV.SIG Q48H REJI Rx#:[id number] INVanz Inj 500 MG In NS Inj 100 100 / 100 100 / 100 ML @ 100 mls/hr IV.SIG Q24H REJI Rx#:[id number] Oral 240 / 240 350 / 350 Output: Urine 300 / 300 300 / 300 Other: # Voids 5 # Incontinent Voids 1 Date of Last Bowel Movement 10/04/17 10/04/17 10/09/17 # Bowel Movements 0 10/08/17 17:50 Catheterized Urine Urine Culture - Preliminary No growth in 24 hours Lab - Hematology Results 10/07/17 14:40 POC Hgb (Calc) 10.2 L POC Hct 30.0 L Lab - Chemistry Results 10/07/17 10/07/17 10/08/17 14:40 14:40 05:33 POC Sodium 140 Sodium 144 POC Potassium 3.4 L Potassium 3.4 L POC Chloride 101 L Chloride 107 Carbon Dioxide 24.0 Anion Gap 13 POC BUN 50 H BUN 57 H Creatinine 3.26 H POC Creatinine 3.7 H Estimated GFR 18 L POC Glucose 174 H Random Glucose 109 H Calcium 9.0 D Phosphorus 3.6 Troponin I 0.03 Albumin 2.8 L Imaging: ITS Impressions Venous Doppler Study 10/01/17 15:34 CONCLUSION: 1. Nonocclusive thrombus. Renal vein on the right below the knee. 2. Popliteal cyst on the right. 3. Generalized edema. Abdomen/Bladder Ultrasound 10/02/17 00:00 CONCLUSION: 1. Bilateral echogenic kidneys concerning for medical renal disease. The kidneys are normal in size. 2. Right renal cysts. 3. Ascites. Central Venous Line 10/03/17 00:00 CONCLUSION: 1. Uncomplicated line placement as above. Head CT 10/07/17 00:00 CONCLUSION: 1. Senescent changes with mild to moderate periventricular ischemic white matter demyelination. 2. No acute intracranial abnormality. Paracentesis Ultrasound 10/08/17 00:00 CONCLUSION: 1. Uncomplicated large volume ultrasound guided paracentesis. Physical Exam: GENERAL: No acute distress. HEENT: EOMI,LV. No icterus. Oropharynx moist mucosa without lesions. NECK: Supple without adenopathy. LUNGS: Clear breath sounds. HEART: Regular S1 and S2 with a 3/6 systolic murmur at the left sternal border. ABDOMEN: Bowel sounds present. Soft, nontender. EXTREMITIES: Left leg erythema is now markedly improved. Very mild erythema at the dorsum of the foot on the left. The right foot has mild erythema at the dorsal aspect at the base of the toes. SKIN: No diffuse rash. The patient has chronic hypopigmented areas of the skin throughout. NEUROLOGIC: Nonfocal. PSYCHIATRIC: Normal mood. Calm and cooperative. Assessment and Plan - Plan IMPRESSION: 1. Urinary tract infection due to ESBL Escherichia coli. Repeat urine culture pending. 2. Cellulitis of the left leg now looks improved. 3. Acute kidney disease. 4. Deep venous thrombosis of the right lower extremity. 5. Recurrent ascites/cirrhosis. RECOMMENDATIONS: 1. Continue Ertapenem for the ESBL Escherichia coli. Repeat urine culture ordered but not yet obtained. 2. Continue Daptomycin for the cellulitis. The patient probably has resistant bacterial infection causing the cellulitis since he has not responded to previous antibiotics. 3. Monitor clinical status. 4. Follow up urine culture.
[2017-10-09] MEDS: Ertapenem Inj 500 MG in Sodium Chlor 0.9% Inj 100 ML IV.SIG SCH (21:14)
[2017-10-10 06:41] LABS: Hematocrit 32.9 % (39.0-51.0); Hemoglobin 11.5 gm/dL (13.0-17.0); Mean Corpuscular HGB Conc 34.8 % (32.0-36.0); Mean Corpuscular Hemoglobin 33.9 pg (27.0-34.0); Mean Corpuscular Volume 97.6 fL (80.0-100.0); Mean Platelet Volume 8.4 fL (7.0-11.0); Platelet Count 63 th/mm3 (150-450); Red Blood Count 3.38 mil/mm3 (4.50-5.90); Red Cell Distribution Width 17.6 % (11.6-17.2); White Blood Count 7.6 th/mm3 (4.0-11.0)
[2017-10-10 07:04] LABS: Albumin 2.6 g/dL (3.4-5.0); Calcium 8.1 mg/dL (8.5-10.1); Carbon Dioxide 29.2 meq/L (21.0-32.0); Phosphorus 2.9 mg/dL (2.5-4.9); Potassium 3.5 meq/L (3.5-5.1)
[2017-10-10] MEDS: Lactobacillus Acidophilus/L. Spores Tablet PO SCH ×3 (09:51→19:04)
--- NOTE | 2017-10-10 11:19 | P.PNIM ---
Subjective Interval history: Patient reports he is feeling great today. He is sitting up in the chair. Abdomen is still distended but he reports he is not uncomfortable currently. Physical Exam Vital signs: Vital Signs 10/09/17 12:34 10/09/17 15:54 10/09/17 16:05 Temperature 97.7 F 100.2 F H 98.8 F Pulse Rate 73 68 68 Respiratory Rate 16 16 16 Blood Pressure 105/60 108/53 L 108/53 L Pulse Oximetry 97 10/09/17 20:00 10/09/17 21:20 10/10/17 00:00 Temperature 98.4 F 98.0 F Pulse Rate 81 67 Respiratory Rate 27 H 24 Blood Pressure 137/58 L 93/46 L Pulse Oximetry 97 95 96 10/10/17 04:00 10/10/17 06:00 10/10/17 08:55 Temperature 98.2 F Pulse Rate 71 73 Respiratory Rate 30 H Blood Pressure 104/50 L Pulse Oximetry 95 95 Intake & Output 10/09/17 10/10/17 10/10/17 18:59 06:59 18:59 Intake Total 100 / 100 Output Total 400 / 400 100 / 100 Balance -300 / -300 -100 / -100 Weight 70.2 kg Intake: IV 100 / 100 INVanz Inj 500 MG In NS Inj 100 100 / 100 ML @ 100 mls/hr IV.SIG Q24H REJI Rx#:[id number] Output: Urine 400 / 400 100 / 100 Other: # Voids 1 Date of Last Bowel Movement 10/09/17 10/09/17 Narrative: GENERAL: Elderly and frail female in no acute distress. CARDIOVASCULAR: Normal rate and regular rhythm without murmurs, gallops, or rubs. RESPIRATORY: Good respiratory efforts. Breath sounds equal and clear to auscultation bilaterally. GASTROINTESTINAL: Abdomen is distended, obvious ascites. No rebound tenderness. MUSCULOSKELETAL: 2+ bilateral lower extremity edema NEURO: Alert & Oriented x4 to person, place, time, situation. Moves all ext x4 PSYCH: Appropriate mood and affect. Results - Labs CBC & Chem 7: 10/10/17 06:24 10/10/17 06:24 Laboratory Results - last 24 hr 10/10/17 10/10/17 06:24 06:24 WBC 7.6 RBC 3.38 L Hgb 11.5 L Hct 32.9 L MCV 97.6 MCH 33.9 MCHC 34.8 RDW 17.6 H Plt Count 63 L D MPV 8.4 Sodium 144 Potassium 3.5 Chloride 108 H Carbon Dioxide 29.2 Anion Gap 7 BUN 49 H Creatinine 2.26 H Estimated GFR 28 L Random Glucose 91 Calcium 8.1 L Phosphorus 2.9 Albumin 2.6 L Microbiology 10/08/17 17:50 Catheterized Urine Urine Culture - Final Cece albicans - Procedures Sono-guided paracentesis Vascat Assessment and Plan - Plan 82-year-old male with cirrhosis, hepatorenal syndrome, renal failure requiring dialysis. Palliative care is following. His overall condition has improved. Shock -likely hypovolemic shock. Resolved possibly secondary to fluid fluid shift after dialysis, resolved. Acute renal failure with hyperkalemia and acidosis. MARIAMA possibly prerenal vs ATN from infection/hypotension/ and GI losses. renal ultrasound shows no obstruction Patient had dialysis. Hemodialysis currently on hold. Renal function improving Nephrology following, has Vas-Cath Continue to follow [facility]. Cirrhosis/ascites Status post paracentesis 1 month ago Ultrasound guided paracentesis 6 L removed repeat paracentesis on 10/08 Plan to evaluated with ultrasound tomorrow for possible repeat paracentesis. Bilateral lower extremity cellulitis Likely secondary to edema Stable continue IV ertapenem and daptomycin per ID ESBL UTI - Continue ertapenem as above and daptomycin -Repeat urine culture per infectious disease. GERD/hyperlipidemia Continue home Protonix Holding statin as patient with transaminitis Distal DVT. 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 Per hematology, it looks chronic does not recommend anticoagulation at this time and repeat ultrasound in 4-6 months Discharge Planning: Transfer to medical floor. Physical therapy to evaluate.
--- NOTE | 2017-10-10 12:45 | P.PNPAL ---
Palliative care continues to follow Mr. Khan to assist with communication and symptom management. Ongoing support provided to patient and family. Today is MrLiz and Mrs. Khan's 60th wed anniversary. Met with Mr. Khan in his room, 523. and son Dylon at bedside. Patient is sitting up in bedside chair. He is alert, oriented, and able to make his needs known. Appropriate and pleasant throughout conversation. Verbalizes he is feeling very well today. Only discomfort is in his stomach, reports "it is manageable". Mr. Khan and family verbalize understanding of pending transfer to a medical floor. All very happy to be getting out of the intensive care unit. Patient and family deny any questions or concerns. Gently discussed [facility] DNR Order. asks me to re- educate patient on DNR status. Mr. Khan confirms he desire to remain a DNR and elects to sign form. Yellow copy placed on chart to go with patient upon D/ C. Copy faxed to HIM to be scanned into EMR. Copy placed on chart and copies provided to and son. Encouraged them to provide copies to all patient's physicians. Palliative care will continue to follow along throughout hospitalization.
--- NOTE | 2017-10-10 14:03 | P.PNID ---
Subjective Remarks: Patient was transferred to intensive care unit because of hypotension. Was also noted to have mental status change(Somnolence) Patient is awake and alert. Feels well. No complaint. No distress. Notes that he is making urine okay. No fevers. Denies chills. Repeat urine culture has less than 10,000 colonies of yeast. This is an 82-year-old white male who presented. to the emergency department on 10/01/2017. The patient was sent to the emergency department because of abnormal labs and he was also complaining of worsening abdominal swelling and worsening lower extremity edema and pain in his lower extremities. The patient was recently discharged from the hospital. He is known to me from the recent hospitalization. At that time, he had bilateral lower extremity cellulitis, and he was treated with IV antibiotics and discharged on p.o. Keflex. He finished the Keflex and was seen by his primary physician, who then put him on doxycycline because it was felt that the cellulitis had not resolved. Because of edema, he was put on diuretics as well. The patient underwent a Doppler ultrasound of his extremities and it showed right [id number] nonocclusive thrombus and also a popliteal cyst on the right. He was noted to have acute kidney disease is receiving dialysis. ID consulted for ESBL E. coli UTI. Was also noted to have non-resolving cellulitis of the left leg below the knee. Antibiotics: Ertapenem. Daptomycin. Past Medical History: PAST MEDICAL HISTORY: Cirrhosis of the liver, hypercholesteremia, gastroesophageal reflux disease, diabetes mellitus, ascites, history of bilateral knee replacements, cellulitis of the lower extremities. Allergies/Adverse Reactions: Allergies ibuprofen Adverse Reaction (Severe, Verified 10/01/17 14:51) cirrhosis cannot take due to liver morphine Adverse Reaction (Severe, Verified 10/01/17 14:51) Nausea/Vomiting naproxen Adverse Reaction (Severe, Verified 10/01/17 14:51) cirrhosis cant take due to liver Objective Vital Signs 10/09/17 15:54 10/09/17 16:05 10/09/17 20:00 Temperature 100.2 F H 98.8 F 98.4 F Pulse Rate 68 68 81 Respiratory Rate 16 16 27 H Blood Pressure 108/53 L 108/53 L 137/58 L Pulse Oximetry 97 97 10/09/17 21:20 10/10/17 00:00 10/10/17 04:00 Temperature 98.0 F 98.2 F Pulse Rate 67 71 Respiratory Rate 24 30 H Blood Pressure 93/46 L 104/50 L Pulse Oximetry 95 96 95 10/10/17 05:00 10/10/17 06:00 10/10/17 06:01 Temperature Pulse Rate 78 73 79 Respiratory Rate 27 H 27 H 27 H Blood Pressure 120/57 L 97/64 L Pulse Oximetry 99 99 98 10/10/17 07:00 10/10/17 08:12 10/10/17 08:55 Temperature 98.1 F Pulse Rate 82 81 Respiratory Rate 25 H 33 H Blood Pressure 97/61 L Pulse Oximetry 98 95 10/10/17 09:00 10/10/17 10:00 10/10/17 11:00 Temperature Pulse Rate 81 78 79 Respiratory Rate 30 H 20 29 H Blood Pressure Pulse Oximetry 96 96 96 Intake & Output 10/09/17 10/10/17 10/10/17 18:59 06:59 18:59 Intake Total 100 / 100 Output Total 400 / 400 100 / 100 Balance -300 / -300 -100 / -100 Weight 70.2 kg Intake: IV 100 / 100 INVanz Inj 500 MG In NS Inj 100 100 / 100 ML @ 100 mls/hr IV.SIG Q24H REJI Rx#:[id number] Output: Urine 400 / 400 100 / 100 Other: # Voids 1 Date of Last Bowel Movement 10/09/17 10/09/17 10/09/17 10/08/17 17:50 Catheterized Urine Urine Culture - Final Cece albicans Lab - Hematology Results 10/10/17 06:24 WBC 7.6 RBC 3.38 L Hgb 11.5 L Hct 32.9 L MCV 97.6 MCH 33.9 MCHC 34.8 RDW 17.6 H Plt Count 63 L D MPV 8.4 Lab - Chemistry Results 10/10/17 06:24 Sodium 144 Potassium 3.5 Chloride 108 H Carbon Dioxide 29.2 Anion Gap 7 BUN 49 H Creatinine 2.26 H Estimated GFR 28 L Random Glucose 91 Calcium 8.1 L Phosphorus 2.9 Albumin 2.6 L Imaging: ITS Impressions Venous Doppler Study 10/01/17 15:34 CONCLUSION: 1. Nonocclusive thrombus. Renal vein on the right below the knee. 2. Popliteal cyst on the right. 3. Generalized edema. Abdomen/Bladder Ultrasound 10/02/17 00:00 CONCLUSION: 1. Bilateral echogenic kidneys concerning for medical renal disease. The kidneys are normal in size. 2. Right renal cysts. 3. Ascites. Central Venous Line 10/03/17 00:00 CONCLUSION: 1. Uncomplicated line placement as above. Head CT 10/07/17 00:00 CONCLUSION: 1. Senescent changes with mild to moderate periventricular ischemic white matter demyelination. 2. No acute intracranial abnormality. Paracentesis Ultrasound 10/08/17 00:00 CONCLUSION: 1. Uncomplicated large volume ultrasound guided paracentesis. Physical Exam: GENERAL: No acute distress. HEENT: EOMI,LV. No icterus. Oropharynx moist mucosa without lesions. NECK: Supple without adenopathy. LUNGS: Clear breath sounds. HEART: Regular S1 and S2 with a 3/6 systolic murmur at the left sternal border. ABDOMEN: Bowel sounds present. Soft, nontender. EXTREMITIES: Erythema of the left leg has resolved. Very mild erythema at the dorsum of the foot on the left. Right foot has no erythema. Tenderness at the right inner distal tibia SKIN: No diffuse rash. The patient has chronic hypopigmented areas of the skin throughout. NEUROLOGIC: Nonfocal. PSYCHIATRIC: Normal mood. Calm and cooperative. Assessment and Plan - Plan IMPRESSION: 1. Urinary tract infection due to ESBL Escherichia coli. Resolved. 2. Cellulitis of the left leg resolved. 3. Acute kidney disease. 4. Deep venous thrombosis of the right lower extremity. 5. Recurrent ascites/cirrhosis. RECOMMENDATIONS: 1. Stop ertapenem for the ESBL Escherichia coli. Repeat urine culture ordered but not yet obtained. 2. Stop daptomycin after today's dose. 3. Monitor clinical status without antibiotics. Discussed with patient's and sons at bedside. Patient is stable from infection standpoint. I will sign off now.
--- NOTE | 2017-10-10 17:19 | P.PNNP ---
Subjective Interval history: Patient seen in the AM, sitting on the chair, mild SOB. Physical Exam Vital signs: Vital Signs 10/09/17 20:00 10/09/17 21:20 10/10/17 00:00 Temperature 98.4 F 98.0 F Pulse Rate 81 67 Respiratory Rate 27 H 24 Blood Pressure 137/58 L 93/46 L Pulse Oximetry 97 95 96 10/10/17 04:00 10/10/17 05:00 10/10/17 06:00 Temperature 98.2 F Pulse Rate 71 78 73 Respiratory Rate 30 H 27 H 27 H Blood Pressure 104/50 L 120/57 L Pulse Oximetry 95 99 99 10/10/17 06:01 10/10/17 07:00 10/10/17 08:12 Temperature 98.1 F Pulse Rate 79 82 81 Respiratory Rate 27 H 25 H 33 H Blood Pressure 97/64 L 97/61 L Pulse Oximetry 98 98 10/10/17 08:55 10/10/17 09:00 10/10/17 10:00 Temperature Pulse Rate 81 78 Respiratory Rate 30 H 20 Blood Pressure Pulse Oximetry 95 96 96 10/10/17 11:00 Temperature Pulse Rate 79 Respiratory Rate 29 H Blood Pressure Pulse Oximetry 96 Intake & Output 10/09/17 10/10/17 10/10/17 18:59 06:59 18:59 Intake Total 100 / 100 Output Total 400 / 400 100 / 100 Balance -300 / -300 -100 / -100 Weight 70.2 kg Intake: IV 100 / 100 INVanz Inj 500 MG In NS Inj 100 100 / 100 ML @ 100 mls/hr IV.SIG Q24H REJI Rx#:[id number] Output: Urine 400 / 400 100 / 100 Other: # Voids 1 Date of Last Bowel Movement 10/09/17 10/09/17 10/09/17 Narrative: GENERAL: Sitting on the chair, in no acute distress. CARDIOVASCULAR: Normal rate and regular rhythm without murmurs, gallops, or rubs. RESPIRATORY: Good respiratory efforts. Breath sounds equal and clear to auscultation bilaterally. GASTROINTESTINAL: Abdomen is distended, obvious ascites. No rebound tenderness. MUSCULOSKELETAL: 2+ bilateral lower extremity edema NEURO: Alert & Oriented x4 to person, place, time, situation. Moves all ext x4 PSYCH: Appropriate mood and affect. Assessment and Plan - Assessment (1) Acute kidney injury Code(s): N17.9 - Acute kidney failure, unspecified Status: Acute Plan: Code(s): N17.9 - Acute kidney failure, unspecified Status: Acute Plan: Acute kidney injury with a creatinine of 6.32 and potassium level of 6 on day of consult Per in Dr. Gibson's office, his creatinine was 5. Creatinine was noted to be 1.24 on 09/12/17. MARIAMA possibly ATN from infection/hypotension/ and GI losses. Also possible hepatorenal syndrome Renal ultrasound: Bilateral echogenic kidneys concerning for medical renal disease. The kidneys are normal in size. Right renal cysts. Creatinine at 3.86 ->3.26 no new labs today UOP at 600ml/24 hours Avoid nephrotoxins and hypotension Continue to hold diuretics Vas cath placed and hemodialysis started 10/04, hemodialysis on hold Will monitor urinary output, renal panel, and watch for renal recovery. Creatinine is improving. Add Lasix, as has more edema. If Creatinine continue to improve, will D/C Vascath. (2) Ascites Code(s): R18.8 - Other ascites Status: Acute Plan: S/p paracentesis 10/03 (3) Cellulitis Code(s): L03.90 - Cellulitis, unspecified Status: Acute Plan: ID consulted and managing ESBL in urine and cellulitis Continue antibiotics
[2017-10-10] MEDS: DAPTOmycin Inj 650 MG in Sodium Chlor 0.9% Inj 100 ML IV.SIG SCH (20:02)
[2017-10-11 05:16] LABS: Hematocrit 31.6 % (39.0-51.0); Hemoglobin 11.1 gm/dL (13.0-17.0); Mean Corpuscular HGB Conc 35.3 % (32.0-36.0); Mean Corpuscular Hemoglobin 33.8 pg (27.0-34.0); Mean Corpuscular Volume 95.9 fL (80.0-100.0); Mean Platelet Volume 8.3 fL (7.0-11.0); Platelet Count 73 th/mm3 (150-450); Red Blood Count 3.29 mil/mm3 (4.50-5.90); Red Cell Distribution Width 17.7 % (11.6-17.2); White Blood Count 9.1 th/mm3 (4.0-11.0)
[2017-10-11 05:37] LABS: Calcium 8.2 mg/dL (8.5-10.1); Carbon Dioxide 24.6 meq/L (21.0-32.0); Potassium 3.3 meq/L (3.5-5.1)
[2017-10-11] MEDS: Lactobacillus Acidophilus/L. Spores Tablet PO SCH ×3 (08:30→17:43)
--- NOTE | 2017-10-11 10:29 | P.PNIM ---
Subjective Interval history: Patient reports is feeling okay today. Still having abdominal distention but he denies pain. No difficulty breathing. Physical Exam Vital signs: Vital Signs 10/10/17 11:00 10/10/17 11:46 10/10/17 12:00 Temperature 98.9 F Pulse Rate 79 80 80 Respiratory Rate 29 H 25 H 23 Blood Pressure 102/55 L 103/49 L Pulse Oximetry 96 96 94 L 10/10/17 13:00 10/10/17 14:00 10/10/17 15:00 Temperature Pulse Rate 80 85 78 Respiratory Rate 20 28 H 21 Blood Pressure Pulse Oximetry 96 94 L 93 L 10/10/17 16:00 10/10/17 17:00 10/10/17 18:00 Temperature Pulse Rate 79 80 81 Respiratory Rate 21 26 H 26 H Blood Pressure 103/51 L Pulse Oximetry 95 94 L 93 L 10/10/17 19:00 10/10/17 19:48 10/10/17 20:00 Temperature 98.5 F Pulse Rate 80 89 Respiratory Rate 20 25 H Blood Pressure 103/53 L Pulse Oximetry 92 L 94 L 97 10/11/17 00:00 10/11/17 04:00 10/11/17 06:00 Temperature 98.7 F 98.6 F Pulse Rate 81 75 80 Respiratory Rate 26 H 20 Blood Pressure 105/50 L 95/52 L Pulse Oximetry Intake & Output 10/10/17 10/11/17 10/11/17 18:59 06:59 18:59 Intake Total 350 / 350 Output Total 1100 / 1100 Balance -750 / -750 Weight 72.5 kg Intake: Oral 350 / 350 Output: Urine 100 / 100 Hemodialysis Amount 1000 / 1000 Other: # Voids 1 2 # Incontinent Voids 1 Date of Last Bowel Movement 10/09/17 10/09/17 # Bowel Movements 0 1 Narrative: GENERAL: Elderly and frail female in no acute distress. CARDIOVASCULAR: Normal rate and regular rhythm without murmurs, gallops, or rubs. RESPIRATORY: Good respiratory efforts. Breath sounds equal and clear to auscultation bilaterally. GASTROINTESTINAL: Abdomen is distended, obvious ascites. No rebound tenderness. MUSCULOSKELETAL: 2+ bilateral lower extremity edema NEURO: Alert & Oriented x4 to person, place, time, situation. Moves all ext x4 PSYCH: Appropriate mood and affect. Results - Labs CBC & Chem 7: 10/11/17 04:47 10/11/17 04:47 Laboratory Results - last 24 hr 10/11/17 10/11/17 04:47 04:47 WBC 9.1 RBC 3.29 L Hgb 11.1 L Hct 31.6 L MCV 95.9 MCH 33.8 MCHC 35.3 RDW 17.7 H Plt Count 73 L MPV 8.3 Sodium 142 Potassium 3.3 L Chloride 106 Carbon Dioxide 24.6 Anion Gap 11 BUN 55 H Creatinine 2.61 H Estimated GFR 24 L Random Glucose 117 H Calcium 8.2 L Microbiology 10/08/17 17:50 Catheterized Urine Urine Culture - Final Cece albicans - Procedures Sono-guided paracentesis Vascath Assessment and Plan - Plan 82-year-old male with cirrhosis, hepatorenal syndrome, renal failure requiring dialysis. Palliative care is following. His overall condition has improved. Acute renal failure with hyperkalemia and acidosis. MARIAMA possibly prerenal vs ATN from infection/hypotension/ and GI losses. renal ultrasound shows no obstruction Patient had dialysis. Hemodialysis currently on hold. Renal function improving. Urinary output is better. Nephrology following, has Vas-Cath Continue to follow [facility]. Shock -likely hypovolemic shock. Resolved possibly secondary to fluid fluid shift after dialysis, resolved. Cirrhosis/ascites Status post paracentesis 1 month ago Ultrasound guided paracentesis 6 L removed repeat paracentesis on 10/08 Will likely need repeat paracentesis on Friday Bilateral lower extremity cellulitis Likely secondary to edema Improved. Patient completed treatment with ertapenem and daptomycin under the guidance of infectious disease. 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 Per hematology, it looks chronic does not recommend anticoagulation at this time and repeat ultrasound in 4-6 months Discharge Planning: Transfer to medical floor. Will need home health Continue IV diuretics over the weekend, possible repeat paracentesis on Friday. If continues to progress well, may be discharged home with home health on Friday.
--- NOTE | 2017-10-11 13:58 | P.PNNP ---
Subjective Interval history: Patient said he is feeling better he has a bowel movement and has good urine output Physical Exam Vital signs: Vital Signs 10/10/17 14:00 10/10/17 15:00 10/10/17 16:00 Temperature Pulse Rate 85 78 79 Respiratory Rate 28 H 21 21 Blood Pressure 103/51 L Pulse Oximetry 94 L 93 L 95 10/10/17 17:00 10/10/17 18:00 10/10/17 19:00 Temperature Pulse Rate 80 81 80 Respiratory Rate 26 H 26 H 20 Blood Pressure Pulse Oximetry 94 L 93 L 92 L 10/10/17 19:48 10/10/17 20:00 10/11/17 00:00 Temperature 98.5 F 98.7 F Pulse Rate 89 81 Respiratory Rate 25 H 26 H Blood Pressure 103/53 L 105/50 L Pulse Oximetry 94 L 97 10/11/17 04:00 10/11/17 06:00 10/11/17 08:00 Temperature 98.6 F 97.6 F Pulse Rate 75 80 75 Respiratory Rate 20 23 Blood Pressure 95/52 L 108/50 L Pulse Oximetry 10/11/17 12:00 Temperature 97.8 F Pulse Rate 74 Respiratory Rate 23 Blood Pressure 105/54 L Pulse Oximetry Intake & Output 10/10/17 10/11/17 10/11/17 18:59 06:59 18:59 Intake Total 350 / 350 Output Total 1100 / 1100 Balance -750 / -750 Weight 72.5 kg Intake: Oral 350 / 350 Output: Urine 100 / 100 Hemodialysis Amount 1000 / 1000 Other: # Voids 1 2 # Incontinent Voids 1 Date of Last Bowel Movement 10/09/17 10/09/17 10/11/17 # Bowel Movements 0 1 - Constitutional no acute distress - Routine HEENT Exam Head: Present: normocephalic - Routine Respiratory Exam Present: CTA bilaterally - Routine Cardiovascular Exam Present: RRR - Routine Abdominal Exam Present: soft, distended - Routine Extremities Exam Present: full ROM - Routine Neurological Exam Present: alert, oriented X3 Assessment and Plan - Assessment (1) Acute kidney injury Code(s): N17.9 - Acute kidney failure, unspecified Status: Acute Plan: Patient Lasix will decrease to 20 mg twice a day as creatinine is 2.61 on furosemide 40 mg every 12 hourly and before he is passing urine getting albumin Patient has chronic liver disease Ascites Replace potassium Continue to follow BMP Dr. Sellers to follow (2) Ascites Code(s): R18.8 - Other ascites Status: Acute (3) Lower extremity deep venous thrombosis Code(s): I82.409 - Acute embolism and thrombosis of unspecified deep veins of unspecified lower extremity Status: Chronic (4) Nonalcoholic steatohepatitis (BOYKIN) Code(s): K75.81 - Nonalcoholic steatohepatitis (BOYKIN) Status: Chronic Diagnostic Tests Laboratory: Laboratory Results - last 72 hr 10/10/17 10/10/17 10/11/17 06:24 06:24 04:47 WBC 7.6 9.1 RBC 3.38 L 3.29 L Hgb 11.5 L 11.1 L Hct 32.9 L 31.6 L MCV 97.6 95.9 MCH 33.9 33.8 MCHC 34.8 35.3 RDW 17.6 H 17.7 H Plt Count 63 L D 73 L MPV 8.4 8.3 Sodium 144 Potassium 3.5 Chloride 108 H Carbon Dioxide 29.2 Anion Gap 7 BUN 49 H Creatinine 2.26 H Estimated GFR 28 L Random Glucose 91 Calcium 8.1 L Phosphorus 2.9 Albumin 2.6 L 10/11/17 04:47 WBC RBC Hgb Hct MCV MCH MCHC RDW Plt Count MPV Sodium 142 Potassium 3.3 L Chloride 106 Carbon Dioxide 24.6 Anion Gap 11 BUN 55 H Creatinine 2.61 H Estimated GFR 24 L Random Glucose 117 H Calcium 8.2 L Phosphorus Albumin Result Diagrams: 10/11/17 04:47 10/11/17 04:47 Microbiology: Microbiology 10/08/17 17:50 Urine Culture - Final Catheterized Urine Cece albicans Procedures: * 10/08/1776-[id number] paracentesis with removal of 8000 cc clear yellow fluid * 10/03/17-right IJ Vas-Cath placement * 10/02/17 ultrasound-guided paracentesis
[2017-10-11] MEDS: Acetaminophen 325 MG Tablet PO PRN (20:04)
[2017-10-11] MEDS: Potassium Chloride 25 MEQ Effervescent Tablet PO SCH (20:05)
[2017-10-12 07:37] LABS: Calcium 8.4 mg/dL (8.5-10.1); Carbon Dioxide 25.2 meq/L (21.0-32.0); Potassium 3.5 meq/L (3.5-5.1)
[2017-10-12] MEDS: Lactobacillus Acidophilus/L. Spores Tablet PO SCH ×3 (08:16→17:28)
[2017-10-12] MEDS: Potassium Chloride 25 MEQ Effervescent Tablet PO SCH ×2 (08:16→20:55)
--- NOTE | 2017-10-12 12:03 | P.PNNP ---
Subjective Interval history: Doing okay Physical Exam Vital signs: Vital Signs 10/11/17 12:16 10/11/17 12:18 10/11/17 13:00 Temperature Pulse Rate 73 76 82 Respiratory Rate 22 22 27 H Blood Pressure 105/54 L Pulse Oximetry 95 96 97 10/11/17 14:00 10/11/17 15:00 10/11/17 16:00 Temperature 98.0 F Pulse Rate 82 75 78 Respiratory Rate 25 H 20 24 Blood Pressure 115/58 L Pulse Oximetry 96 96 97 10/11/17 17:00 10/11/17 18:00 10/11/17 19:00 Temperature Pulse Rate 79 83 80 Respiratory Rate 24 45 H 30 H Blood Pressure Pulse Oximetry 97 96 93 L 10/11/17 20:00 10/11/17 20:01 10/11/17 20:47 Temperature Pulse Rate 80 80 Respiratory Rate 23 29 H Blood Pressure 102/47 L Pulse Oximetry 94 L 93 L 93 L 10/11/17 21:00 10/11/17 22:00 10/11/17 23:00 Temperature Pulse Rate 80 77 78 Respiratory Rate 27 H 39 H 23 Blood Pressure Pulse Oximetry 94 L 92 L 94 L 10/12/17 00:00 10/12/17 01:00 10/12/17 02:00 Temperature 97.6 F Pulse Rate 78 80 81 Respiratory Rate 37 H 30 H 33 H Blood Pressure 99/58 L Pulse Oximetry 94 L 94 L 95 10/12/17 03:00 10/12/17 04:00 10/12/17 05:00 Temperature 97.5 F L Pulse Rate 80 76 75 Respiratory Rate 32 H 18 24 Blood Pressure 104/60 Pulse Oximetry 94 L 94 L 93 L 10/12/17 06:00 10/12/17 08:00 Temperature 97.5 F L Pulse Rate 71 83 Respiratory Rate 23 Blood Pressure 106/57 L Pulse Oximetry 93 L Intake & Output 10/11/17 10/12/17 10/12/17 18:59 06:59 18:59 Intake Total 500 / 500 820 / 820 Output Total 1150 / 1150 Balance 500 / 500 -330 / -330 Weight 72.8 kg Intake: IV 100 / 100 Oral 500 / 500 720 / 720 Output: Urine 1150 / 1150 Other: Date of Last Bowel Movement 10/11/17 10/11/17 10/11/17 # Bowel Movements 2 0 - Constitutional no acute distress - Routine HEENT Exam Head: Present: normocephalic Eye: Present: EOMI - Routine Neck Exam Present: supple - Routine Respiratory Exam Present: CTA bilaterally - Routine Abdominal Exam Present: soft, distended - Routine Extremities Exam Present: edema Assessment and Plan - Assessment (1) Acute kidney injury Code(s): N17.9 - Acute kidney failure, unspecified Status: Acute Plan: Creatinine remained stable at 2.6 and nonoliguric, patient did not have dialysis since 10/04/2017 Dr. Sellers to follow (2) Ascites Code(s): R18.8 - Other ascites Status: Acute (3) Lower extremity deep venous thrombosis Code(s): I82.409 - Acute embolism and thrombosis of unspecified deep veins of unspecified lower extremity Status: Chronic (4) Nonalcoholic steatohepatitis (BOYKIN) Code(s): K75.81 - Nonalcoholic steatohepatitis (BOYKIN) Status: Chronic
--- NOTE | 2017-10-12 15:06 | P.PNIM ---
Subjective Interval history: Patient seen earlier this morning. He reports he is feeling okay. Abdomen is slightly more distended per his . He denies abdominal pain or shortness of breath. Physical Exam Vital signs: Vital Signs 10/11/17 16:00 10/11/17 17:00 10/11/17 18:00 Temperature 98.0 F Pulse Rate 78 79 83 Respiratory Rate 24 24 45 H Blood Pressure 115/58 L Pulse Oximetry 97 97 96 10/11/17 19:00 10/11/17 20:00 10/11/17 20:01 Temperature Pulse Rate 80 80 80 Respiratory Rate 30 H 23 29 H Blood Pressure 102/47 L Pulse Oximetry 93 L 94 L 93 L 10/11/17 20:47 10/11/17 21:00 10/11/17 22:00 Temperature Pulse Rate 80 77 Respiratory Rate 27 H 39 H Blood Pressure Pulse Oximetry 93 L 94 L 92 L 10/11/17 23:00 10/12/17 00:00 10/12/17 01:00 Temperature 97.6 F Pulse Rate 78 78 80 Respiratory Rate 23 37 H 30 H Blood Pressure 99/58 L Pulse Oximetry 94 L 94 L 94 L 10/12/17 02:00 10/12/17 03:00 10/12/17 04:00 Temperature 97.5 F L Pulse Rate 81 80 76 Respiratory Rate 33 H 32 H 18 Blood Pressure 104/60 Pulse Oximetry 95 94 L 94 L 10/12/17 05:00 10/12/17 06:00 10/12/17 08:00 Temperature 97.5 F L Pulse Rate 75 71 83 Respiratory Rate 24 23 Blood Pressure 106/57 L Pulse Oximetry 93 L 93 L 10/12/17 12:00 10/12/17 14:00 Temperature 97.6 F 96.5 F L Pulse Rate 76 74 Respiratory Rate 20 Blood Pressure 114/56 L 126/60 Pulse Oximetry 96 98 Intake & Output 10/11/17 10/12/17 10/12/17 18:59 06:59 18:59 Intake Total 500 / 500 820 / 820 120 / 120 Output Total 1150 / 1150 Balance 500 / 500 -330 / -330 120 / 120 Weight 72.8 kg 75.8 kg Intake: IV 100 / 100 Oral 500 / 500 720 / 720 120 / 120 Output: Urine 1150 / 1150 Other: Date of Last Bowel Movement 10/11/17 10/11/17 10/11/17 # Bowel Movements 2 0 Narrative: GENERAL: Elderly and frail female in no acute distress. CARDIOVASCULAR: Normal rate and regular rhythm without murmurs, gallops, or rubs. RESPIRATORY: Good respiratory efforts. Breath sounds equal and clear to auscultation bilaterally. GASTROINTESTINAL: Abdomen is distended, obvious ascites. No rebound tenderness. MUSCULOSKELETAL: 2+ bilateral lower extremity edema NEURO: Alert & Oriented x4 to person, place, time, situation. Moves all ext x4 PSYCH: Appropriate mood and affect. Results - Labs CBC & Chem 7: 10/11/17 04:47 10/12/17 06:36 Laboratory Results - last 24 hr 10/12/17 06:36 Sodium 141 Potassium 3.5 Chloride 106 Carbon Dioxide 25.2 Anion Gap 10 BUN 55 H Creatinine 2.60 H Estimated GFR 24 L Random Glucose 100 Calcium 8.4 L - Procedures Sono-guided paracentesis Vascath Assessment and Plan - Plan 82-year-old male with cirrhosis, hepatorenal syndrome, renal failure requiring dialysis. Palliative care is following. His overall condition has improved. Acute renal failure with hyperkalemia and acidosis. MARIAMA possibly prerenal vs ATN from infection/hypotension/ and GI losses. renal ultrasound shows no obstruction Patient had dialysis last on 10/04. Hemodialysis currently on hold. Renal function improving. Urinary output is better. Nephrology following, has Vas-Cath Continue to follow [facility]. Shock during this hospitalization-likely hypovolemic shock. Resolved possibly secondary to fluid fluid shift after dialysis, resolved. Cirrhosis/ascites Status post paracentesis 1 month ago Ultrasound guided paracentesis 6 L removed repeat paracentesis on 10/08 We will plan for repeat paracentesis tomorrow. Bilateral lower extremity cellulitis Likely secondary to edema Improved. Patient completed treatment with ertapenem and daptomycin under the guidance of infectious disease. 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 Per hematology, it looks chronic does not recommend anticoagulation at this time and repeat ultrasound in 4-6 months Discharge Planning: Transfer to medical floor. Will need home health Continue IV diuretics. Repeat paracentesis tomorrow. Possible discharge in the next 24-40
[2017-10-12] MEDS: Acetaminophen 325 MG Tablet PO PRN (17:30)
[2017-10-13 05:35] LABS: Hemoglobin 10.9 gm/dL (13.0-17.0); Mean Corpuscular HGB Conc 35.2 % (32.0-36.0); Mean Corpuscular Hemoglobin 33.5 pg (27.0-34.0); Mean Corpuscular Volume 95.2 fL (80.0-100.0); Mean Platelet Volume 8.1 fL (7.0-11.0); Platelet Count 87 th/mm3 (150-450); Red Blood Count 3.25 mil/mm3 (4.50-5.90)
[2017-10-13 05:49] LABS: INR 1.8 Ratio; Prothrombin Time 17.8 sec (9.8-11.6)
[2017-10-13 05:57] LABS: Calcium 8.5 mg/dL (8.5-10.1); Carbon Dioxide 27.3 meq/L (21.0-32.0)
--- NOTE | 2017-10-13 10:25 | US ---
EXAM DATE: 10/13/2017 10:00 AM EDT AGE/SEX: 82 years / Male INDICATIONS: Ascites. CLINICAL DATA: This is the patient's sequela encounter. Patient reports that signs and symptoms have been present for 1 day and indicates a pain score of 3/10. MEDICAL/SURGICAL HISTORY: . Ascites. Cirrhosis. GERD. Diabetic. Kidney disease. GI Bleed. . Left and right knee replacement. [place] [facility] [place] 10/08/[place]. . FLUID: Total volume of 5100 cc of clear, yellow fluid was removed. Fluid was discarded. Paracentesis was the rapeutic only. . . TECHNIQUE: Ultrasound guidance for abdominal paracentesis. Paracentesis. The risks, benefits, and alternatives to ultrasound guided paracentesis were explained to the patient in detail including the risk of bleeding and infection. Written and verbal informed consent was obt ained. With the patient on the ultrasound table, ultrasound imaging was used to select the most appropriate approach for paracentesis. Overlying skin was prepped and draped in the usual sterile fashion and wi th a local anesthetic, a dermatotomy was made with an 11 blade scalpel. A 6 Lebanese [id number] ca theter was introduced into the peritoneal cavity and fluid was collected. Post procedure scanning reveals no hematoma or other complication. The patient tolerated the procedu re well and left the ultrasound suite in stable condition. FINDINGS: After obtaining consent, an ultrasound-guided left lower quadrant paracentesis was performed without complication. CONCLUSION: 1. Successful ultrasound-guided paracentesis as described above. Electronically signed by: Aureliano Dhaliwal MD 10/13/2017 10:24 AM EDT
[2017-10-13] MEDS ORDERED: Lidocaine PF 1% Inj 30 ML Vial ONE (10:29)
[2017-10-13] MEDS: Lactobacillus Acidophilus/L. Spores Tablet PO SCH ×3 (10:39→17:11)
[2017-10-13] MEDS: Potassium Chloride 25 MEQ Effervescent Tablet PO SCH ×2 (10:40→20:56)
--- NOTE | 2017-10-13 11:43 | P.PNIM ---
Subjective Interval history: Patient had paracentesis today had approximately 5 L taken off. His breathing better. Have discussed with patient and are RN and case management and . Patient needs to be restricted to fluid intake of 1 L orally daily Otherwise will have to come back to the hospital quicker for another paracentesis We will get a.m. labs Stable hopefully home in the next 24-48 hours Physical Exam Vital signs: Vital Signs 10/12/17 12:00 10/12/17 14:00 10/12/17 16:00 Temperature 97.6 F 96.5 F L 97 F L Pulse Rate 76 74 69 Respiratory Rate 20 20 Blood Pressure 114/56 L 126/60 130/60 Pulse Oximetry 96 98 97 10/12/17 20:00 10/13/17 00:00 10/13/17 04:00 Temperature 97.4 F L 97.6 F 97.6 F Pulse Rate 79 84 77 Respiratory Rate 17 17 16 Blood Pressure 118/56 L 105/53 L 126/55 L Pulse Oximetry 98 96 96 10/13/17 08:00 10/13/17 08:42 10/13/17 08:51 Temperature 97.5 F L 97.4 F L Pulse Rate 73 86 Respiratory Rate 16 18 Blood Pressure 118/64 98/48 L Pulse Oximetry 98 99 98 10/13/17 09:53 Temperature 97.0 F L Pulse Rate 76 Respiratory Rate 16 Blood Pressure 105/57 L Pulse Oximetry 97 Intake & Output 10/12/17 10/13/17 10/13/17 18:59 06:59 18:59 Intake Total 120 / 120 360 / 360 Output Total Balance 119 / 119 360 / 360 Weight 75.8 kg 76.5 kg Intake: Oral 120 / 120 360 / 360 Output: Stool Other: # Voids 3 Date of Last Bowel Movement 10/12/17 # Bowel Movements 1 Narrative: GENERAL: Awake alert and oriented 3 talkative and cooperative SKIN: Warm and dry. HEAD: Atraumatic. Normocephalic. EYES: Pupils equal and round. No scleral icterus. No injection or drainage. ENT: No nasal bleeding or discharge. Mucous membranes pink and moist. NECK: Trachea midline. No JVD. CARDIOVASCULAR: Regular rate and rhythm. S1-S2 no S3 or S4 RESPIRATORY: No accessory muscle use. Clear to auscultation. Breath sounds equal bilaterally. GASTROINTESTINAL: Abdomen soft, non-tender, nondistended. Hepatic and splenic margins not palpable. Dressed MUSCULOSKELETAL: Extremities without clubbing, cyanosis, or edema. No obvious deformities. NEUROLOGICAL: Awake and alert. No obvious cranial nerve deficits. Motor grossly within normal limits. 4 out of 5 muscle strength in the arms and legs. Normal speech. PSYCHIATRIC: Appropriate mood and affect; insight and judgment normal. Results - Labs CBC & Chem 7: 10/13/17 04:55 10/13/17 04:55 Laboratory Results - last 24 hr 10/13/17 10/13/17 10/13/17 04:55 04:55 04:55 WBC 9.0 RBC 3.25 L Hgb 10.9 L Hct 31.0 L MCV 95.2 MCH 33.5 MCHC 35.2 RDW 18.0 H Plt Count 87 L MPV 8.1 PT 17.8 H INR 1.8 Sodium 141 Potassium 4.0 Chloride 107 Carbon Dioxide 27.3 Anion Gap 7 BUN 62 H Creatinine 2.66 H Estimated GFR 23 L Random Glucose 100 Calcium 8.5 - Imaging Impressions Paracentesis Ultrasound 10/13/17 00:00 CONCLUSION: 1. Successful ultrasound-guided paracentesis as described above. - Procedures Sono-guided paracentesis Vascat Assessment and Plan - Plan 82-year-old male with cirrhosis, hepatorenal syndrome, renal failure requiring dialysis. Palliative care is following. His overall condition has improved. Acute renal failure with hyperkalemia and acidosis. MARIAMA possibly prerenal vs ATN from infection/hypotension/ and GI losses. renal ultrasound shows no obstruction Patient had dialysis last on 10/04. Hemodialysis currently on hold. Renal function improving. Urinary output is better. Nephrology following, has Vas-Cath Continue to follow [facility]. Shock during this hospitalization-likely hypovolemic shock. Resolved possibly secondary to fluid shift after dialysis, resolved. Cirrhosis/ascites Status post paracentesis 1 month ago Ultrasound guided paracentesis 6 L removed repeat paracentesis on 10/08 Status post paracentesis today October 13--had 5 L taken off Bilateral lower extremity cellulitis Likely secondary to edema Improved. Patient completed treatment with ertapenem and daptomycin under the guidance of infectious disease. 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 Per hematology, it looks chronic does not recommend anticoagulation at this time and repeat ultrasound in 4-6 months Transfer to medical floor. Will need home health Continue IV diuretics. Had paracentesis today 5 L taken off October 13. Possible discharge in the next 24- Code Status: DNR Discussed Condition With: RN and patient and case management and Discharge Planning: Hopefully home in the next 24-48 hours
--- NOTE | 2017-10-13 14:27 | P.DCO ---
- Physical Therapy Order: Evaluate and treat, Improve ambulation, Strength and gait training - Occupational Therapy Order: Evaluate and treat, Improve ADL, Gross motor coordination - Home Health Nursing Order: Medical education, Signs/symptoms of disease process, Medication education-adverse effect, Nursing assessment with vital signs - Home Health Aide Order: To assist in: Bathing and personal care, brazer crawler torch and meal prep - Traffic Control Officer Order: To evaluate: Living conditions/environment - Certification I have seen patient Robby Khan on 10/13/17. My clinical findings support the need for the requested home health care services because: Limited mobility due to disease progression, Deconditioned with increased weakness, Medication compliance is questionable, Limited ability to care for self, Impaired cognition/judgement I certify that my clinical findings support that this patient is homebound because: Impaired cognitive ability/safety, Unsteady gait/balance, Unsafe to leave home unassisted
--- NOTE | 2017-10-13 16:58 | P.PNPAL ---
Reason for Visit Reason for visit: a. To assist with evaluation and management of symptoms including: weakness, decreased appetite. b. To assist medical decision maker(s) with: better understanding of current medical conditions; weighing benefits/burdens of medical treatment options; making medical treatment decisions. Subjective Subjective/Interval History: Patient seen and examined in room 1416. at bedside. Also present Sultana Londono LCSW. Patient is more awake and alert today. He is interactive, joking around and remembers me from prior visit. He reports that he is working with physical therapy, though remains very weak. He indicates that his sons were here from out of town and have assisted to place bars in the shower for his assistance upon return home in the coming days. Afebrile. Vital signs stable. WBC 9.0, hemoglobin 10.9, hematocrit 31, platelet 87, no reported bleeding. Creatinine remains mildly elevated at 2.66 which is stable over the past 3 days. Last hemodialysis treatment on 10/10/17 with removal of 1000 mL. Patient underwent ultrasound-guided paracentesis with removal of 5100 mL's this morning. Patient and his are hopeful that he will be able to be discharged in the coming day or so. He and his have a good understanding of current medical condition, that liver failure will likely continue to worsen. He remains high risk for repeat hospitalizations. Patient and his are open to consideration of hospice services in the future should his condition worsen. At this time they desire continued aggressive care short of NO CODE. . Family/Friend Interactions: See interval note. Advance Directives Documented care wishes:: [place] DO NOT RESUSCITATE order on chart, signed on 10/10/17 by the patient. Yellow DNR on chart to return home with patient. Copy sent to [facility] to be scanned into the medical record. Significant change in goals:: Goals remain aggressive at this time short of NO CODE. Open to consideration of hospice/comfort measures in the future should his condition worsen or decline. Objective Vital Signs: Vital Signs 10/12/17 20:00 10/13/17 00:00 10/13/17 04:00 Temperature 97.4 F L 97.6 F 97.6 F Pulse Rate 79 84 77 Respiratory Rate 17 17 16 Blood Pressure 118/56 L 105/53 L 126/55 L Pulse Oximetry 98 96 96 10/13/17 08:00 10/13/17 08:42 10/13/17 08:51 Temperature 97.5 F L 97.4 F L Pulse Rate 73 86 Respiratory Rate 16 18 Blood Pressure 118/64 98/48 L Pulse Oximetry 98 99 98 10/13/17 09:53 10/13/17 13:10 Temperature 97.0 F L 97.6 F Pulse Rate 76 82 Respiratory Rate 16 16 Blood Pressure 105/57 L 101/82 Pulse Oximetry 97 98 Intake & Output 10/12/17 10/13/17 10/13/17 18:59 06:59 18:59 Intake Total 120 / 120 360 / 360 Output Total Balance 119 / 119 360 / 360 Weight 75.8 kg 76.5 kg Intake: Oral 120 / 120 360 / 360 Output: Stool Other: # Voids 3 Date of Last Bowel Movement 10/12/17 # Bowel Movements 1 Physical Exam: CONSTITUTIONAL/GENERAL: This is an elderly, frail-appearing gentleman. No acute distress. TUBES/LINES/DRAINS: Right vas cath, PIV. SKIN: No jaundice, rashes, or lesions. Ecchymoses on upper extremities. No wounds seen anteriorly. Skin temperature appropriate. Not diaphoretic. EYES: Pupils equal and round. CARDIOVASCULAR: Regular rate and rhythm without murmurs, gallops, or rubs. RESPIRATORY/CHEST: Symmetric, unlabored respirations. Clear to auscultation. GASTROINTESTINAL: Abdomen soft, nondistended. No guarding. Bowel sounds present. GENITOURINARY: Without palpable bladder distension. MUSCULOSKELETAL: Extremities with trace edema. No mottling or clubbing. NEUROLOGICAL: Awake and alert. No evidence of confusion during today's visit. Moves all extremities. PSYCHIATRIC: Denies anxiety. Diagnostic Tests Laboratory: Laboratory Results - last 72 hr 10/11/17 10/11/17 10/12/17 04:47 04:47 06:36 WBC 9.1 RBC 3.29 L Hgb 11.1 L Hct 31.6 L MCV 95.9 MCH 33.8 MCHC 35.3 RDW 17.7 H Plt Count 73 L MPV 8.3 PT INR Sodium 142 141 Potassium 3.3 L 3.5 Chloride 106 106 Carbon Dioxide 24.6 25.2 Anion Gap 11 10 BUN 55 H 55 H Creatinine 2.61 H 2.60 H Estimated GFR 24 L 24 L Random Glucose 117 H 100 Calcium 8.2 L 8.4 L 10/13/17 10/13/17 10/13/17 04:55 04:55 04:55 WBC 9.0 RBC 3.25 L Hgb 10.9 L Hct 31.0 L MCV 95.2 MCH 33.5 MCHC 35.2 RDW 18.0 H Plt Count 87 L MPV 8.1 PT 17.8 H INR 1.8 Sodium 141 Potassium 4.0 Chloride 107 Carbon Dioxide 27.3 Anion Gap 7 BUN 62 H Creatinine 2.66 H Estimated GFR 23 L Random Glucose 100 Calcium 8.5 Result Diagrams: 10/13/17 04:55 10/13/17 04:55 Imaging: Venous Doppler Study 10/01/17 15:34 CONCLUSION: 1. Nonocclusive thrombus. Renal vein on the right below the knee. 2. Popliteal cyst on the right. 3. Generalized edema. Abdomen/Bladder Ultrasound 10/02/17 00:00 CONCLUSION: 1. Bilateral echogenic kidneys concerning for medical renal disease. The kidneys are normal in size. 2. Right renal cysts. 3. Ascites. Central Venous Line 10/03/17 00:00 CONCLUSION: 1. Uncomplicated line placement as above. Head CT 10/07/17 00:00 CONCLUSION: 1. Senescent changes with mild to moderate periventricular ischemic white matter demyelination. 2. No acute intracranial abnormality. Paracentesis Ultrasound 10/13/17 00:00 CONCLUSION: 1. Successful ultrasound-guided paracentesis as described above. Procedures: * 10/08/1762-[id number] paracentesis with removal of 8000 cc clear yellow fluid * 10/03/17-right IJ Vas-Cath placement * 10/02/17 ultrasound-guided paracentesis Assessment and Plan - Disease Oriented Problem List (1) Ascites (2) Acute kidney injury (3) Cellulitis (4) Lower extremity deep venous thrombosis (5) Abnormal coagulation profile (6) Nonalcoholic steatohepatitis (BOYKIN) Pertinent Non-Medical Issues: Psychosocial: for 60 years, have 3 adopted sons. Retired. From [place]. Served in [employer] during and after [place] [employer]. Worked as a construction framer. Spiritual: Restorationism frances. Legal:Patient is not capacitated to make his own healthcare decisions at this time, uncertain if he will regain capacity. reports patient has written advanced directives, is designated healthcare surrogate. Copies requested. Ethical issues impacting care: No known concerns at this time. Important Contacts: * Mary Lou Coles, : [phone] Prognosis: Overall prognosis is limited given end stage liver stage. Hospice appropriate if goals are comfort oriented. Code Status: No Code DNR Plan: * Decision Maker: Patient appears capacitated to make his own healthcare decisions at this time. reports patient has written advanced directives, is designated healthcare surrogate. Copies requested. * NO CODE -[place] DO NOT RESUSCITATE order completed on chart to be sent home with patient upon discharge. * Desires continued aggressive care at this time short of NO CODE. They are open to hospice in the future should patient have further setbacks or decline. * SYMPTOMS: Encephalopathy: Secondary to end-stage liver disease, renal failure , hospitalization etc. Uncertain if this will resolve. Pain: Denies pain at this time. Dyspnea: Denies shortness of breath at this time. Would avoid sedating medications given underlying encephalopathy. * Palliative care will continue to follow throughout hospital course to assist with symptom management and clarification of goals as needed. Attestation Attestation: To help prompt me to consider important information that might be impacting today's encounter and assessment, information from prior notes written by myself or my colleagues may have been "brought forward" into today's note. My signature on this note, however, is an attestation that I personally performed the exam, history, and/or decision-making noted today, and, unless otherwise indicated, the interactions with patient, family, and staff as well as the review of records all occurred today. I also attest that the listed assessment and stated plan reflect my best clinical judgment today based on the combination of historical information, prior notes, and today's exam/ interactions. When time spent is documented, it refers only to time spent today by the signer, or if indicated, combined time spent today by collaborating physician/nurse practitioner.
--- NOTE | 2017-10-13 19:23 | P.PNNP ---
Subjective Interval history: Patients een in the afternoon, feeling better after paracentesis, no SOB. Physical Exam Vital signs: Vital Signs 10/12/17 20:00 10/13/17 00:00 10/13/17 04:00 Temperature 97.4 F L 97.6 F 97.6 F Pulse Rate 79 84 77 Respiratory Rate 17 17 16 Blood Pressure 118/56 L 105/53 L 126/55 L Pulse Oximetry 98 96 96 10/13/17 08:00 10/13/17 08:42 10/13/17 08:51 Temperature 97.5 F L 97.4 F L Pulse Rate 73 86 Respiratory Rate 16 18 Blood Pressure 118/64 98/48 L Pulse Oximetry 98 99 98 10/13/17 09:53 10/13/17 13:10 10/13/17 17:42 Temperature 97.0 F L 97.6 F 97.8 F Pulse Rate 76 82 82 Respiratory Rate 16 16 16 Blood Pressure 105/57 L 101/82 91/44 L Pulse Oximetry 97 98 98 Intake & Output 10/13/17 10/13/17 10/14/17 06:59 18:59 06:59 Intake Total 360 / 360 850 / 850 Balance 360 / 360 850 / 850 Weight 76.5 kg Intake: Oral 360 / 360 850 / 850 Other: # Voids 3 3 # Bowel Movements 1 Narrative: GENERAL: Awake alert and oriented 3 talkative and cooperative SKIN: Warm and dry. HEAD: Atraumatic. Normocephalic. EYES: Pupils equal and round. No scleral icterus. No injection or drainage. ENT: No nasal bleeding or discharge. Mucous membranes pink and moist. NECK: Trachea midline. No JVD. CARDIOVASCULAR: Regular rate and rhythm. S1-S2 no S3 or S4 RESPIRATORY: No accessory muscle use. Clear to auscultation. Breath sounds equal bilaterally. GASTROINTESTINAL: Abdomen soft, non-tender, distended. MUSCULOSKELETAL: Extremities without clubbing, cyanosis, or edema. No obvious deformities. NEUROLOGICAL: Awake and alert. No obvious cranial nerve deficits. Motor grossly within normal limits. PSYCHIATRIC: Appropriate mood and affect; insight and judgment normal. Assessment and Plan - Assessment (1) Acute kidney injury Code(s): N17.9 - Acute kidney failure, unspecified Status: Acute Plan: Creatinine remained stable at 2.6 and nonoliguric, patient did not have dialysis since 10/04/2017 Has Chronic kidney disease and develop MARIAMA. Hold HD for now, If Creatinine is better, will D/C Vascath. (2) Ascites Code(s): R18.8 - Other ascites Status: Acute Plan: Post repeat Paracentesis on 10/13. (3) Lower extremity deep venous thrombosis Code(s): I82.409 - Acute embolism and thrombosis of unspecified deep veins of unspecified lower extremity Status: Chronic (4) Nonalcoholic steatohepatitis (BOYKIN) Code(s): K75.81 - Nonalcoholic steatohepatitis (BOYKIN) Status: Chronic
[2017-10-14 05:10] LABS: Baso # (Auto) 0.1 th/mm3 (0.0-0.2); Baso % (Auto) 0.9 % (0.0-2.0); Eos # (Auto) 0.2 th/mm3 (0.0-0.4); Eos % (Auto) 2.8 % (0.0-4.0); Hematocrit 28.4 % (39.0-51.0); Hemoglobin 10.1 gm/dL (13.0-17.0); Lymph # (Auto) 1.6 th/mm3 (1.0-4.8); Lymph % (Auto) 23.7 % (9.0-44.0); Mean Corpuscular HGB Conc 35.7 % (32.0-36.0); Mean Corpuscular Hemoglobin 33.7 pg (27.0-34.0); Mean Corpuscular Volume 94.3 fL (80.0-100.0); Mean Platelet Volume 7.6 fL (7.0-11.0); Mono # (Auto) 0.8 th/mm3 (0.0-0.9); Mono % (Auto) 12.7 % (0.0-8.0); Neut % (Auto) 59.9 % (16.0-70.0); Platelet Count 79 th/mm3 (150-450); Red Blood Count 3.01 mil/mm3 (4.50-5.90); Red Cell Distribution Width 18.3 % (11.6-17.2); White Blood Count 6.6 th/mm3 (4.0-11.0)
[2017-10-14 05:21] LABS: INR 1.8 Ratio; Prothrombin Time 18.1 sec (9.8-11.6)
[2017-10-14 05:35] LABS: Albumin 2.5 g/dL (3.4-5.0); Anion Gap 7 meq/L (5-15); Aspartate Aminotransferase 71 U/L (15-37); Blood Urea Nitrogen 56 mg/dL (7-18); Calcium 8.2 mg/dL (8.5-10.1); Carbon Dioxide 26.1 meq/L (21.0-32.0); Chloride 105 meq/L (98-107); Glomerular Filtration Rate 23 mL/min (>89); Potassium 4.2 meq/L (3.5-5.1); Sodium 138 meq/L (136-145)
[2017-10-14 05:41] LABS: Alanine Aminotransferase 58 U/L (12-78); Alkaline Phosphatase 119 U/L (45-117); Glucose,Random 96 mg/dL (74-106); Phosphorus 3.5 mg/dL (2.5-4.9); Total Protein 5.4 g/dL (6.4-8.2)
[2017-10-14 07:54] LABS: Platelet Morphology Normal (Normal)
[2017-10-14] MEDS: Potassium Chloride 25 MEQ Effervescent Tablet PO SCH (09:14)
[2017-10-14] MEDS: Lactobacillus Acidophilus/L. Spores Tablet PO SCH ×2 (09:14→13:55)
--- NOTE | 2017-10-14 12:44 | P.PNIM ---
Subjective Interval history: Patient had paracentesis today had approximately 5 L taken off. His breathing better. Have discussed with patient and are RN and case management and . Patient needs to be restricted to fluid intake of 1 L orally daily Otherwise will have to come back to the hospital quicker for another paracentesis We will get a.m. labs Stable hopefully home in the next 24-48 hours WANTS TO GO HOME TODAY DC TO HOME TODAY Physical Exam Vital signs: Vital Signs 10/13/17 13:10 10/13/17 17:42 10/13/17 20:00 Temperature 97.6 F 97.8 F 97.7 F Pulse Rate 82 82 85 Respiratory Rate 16 16 18 Blood Pressure 101/82 91/44 L 112/54 L Pulse Oximetry 98 98 95 10/14/17 00:00 10/14/17 04:00 10/14/17 08:00 Temperature 97.4 F L 97.5 F L 97.4 F L Pulse Rate 87 93 H 80 Respiratory Rate 18 18 16 Blood Pressure 109/53 L 91/52 L 100/55 L Pulse Oximetry 95 95 98 Intake & Output 10/13/17 10/14/17 10/14/17 18:59 06:59 18:59 Intake Total 850 / 850 240 / 240 Balance 850 / 850 240 / 240 Weight 74.6 kg Intake: Oral 850 / 850 240 / 240 Other: # Voids 3 2 Date of Last Bowel Movement 10/13/17 10/13/17 Narrative: GENERAL: Awake alert and oriented 3 talkative and cooperative SKIN: Warm and dry. HEAD: Atraumatic. Normocephalic. EYES: Pupils equal and round. No scleral icterus. No injection or drainage. ENT: No nasal bleeding or discharge. Mucous membranes pink and moist. NECK: Trachea midline. No JVD. CARDIOVASCULAR: Regular rate and rhythm. S1-S2 no S3 or S4 RESPIRATORY: No accessory muscle use. Clear to auscultation. Breath sounds equal bilaterally. GASTROINTESTINAL: Abdomen soft, non-tender, distended. MUSCULOSKELETAL: Extremities without clubbing, cyanosis, or edema. No obvious deformities. NEUROLOGICAL: Awake and alert. No obvious cranial nerve deficits. Motor grossly within normal limits. PSYCHIATRIC: Appropriate mood and affect; insight and judgment normal. Results - Labs CBC & Chem 7: 10/14/17 04:45 10/14/17 04:45 Laboratory Results - last 24 hr 10/14/17 10/14/17 10/14/17 04:45 04:45 04:45 WBC 6.6 RBC 3.01 L Hgb 10.1 L Hct 28.4 L MCV 94.3 MCH 33.7 MCHC 35.7 RDW 18.3 H Plt Count 79 L MPV 7.6 Prelim Diff (Auto) Slide review pending Neut % (Auto) 59.9 Lymph % (Auto) 23.7 [place] % (Auto) 12.7 H Eos % (Auto) 2.8 Baso % (Auto) 0.9 Neut # (Auto) 4.0 Lymph # (Auto) 1.6 [place] # (Auto) 0.8 Eos # (Auto) 0.2 Baso # (Auto) 0.1 WBC Differential . Diff Scan Auto diff confirmed Differential Comment . Platelet Estimate Low L Platelet Morphology Normal PT 18.1 H INR 1.8 Sodium 138 Potassium 4.2 Chloride 105 Carbon Dioxide 26.1 Anion Gap 7 BUN 56 H Creatinine 2.68 H Estimated GFR 23 L Random Glucose 96 Calcium 8.2 L Phosphorus 3.5 Magnesium 2.0 Total Bilirubin 2.8 H AST 71 H ALT 58 Alkaline Phosphatase 119 H Total Protein 5.4 L Albumin 2.5 L - Imaging Venous Doppler Study 10/01/17 15:34 CONCLUSION: 1. Nonocclusive thrombus. Renal vein on the right below the knee. 2. Popliteal cyst on the right. 3. Generalized edema. Abdomen/Bladder Ultrasound 10/02/17 00:00 CONCLUSION: 1. Bilateral echogenic kidneys concerning for medical renal disease. The kidneys are normal in size. 2. Right renal cysts. 3. Ascites. Paracentesis Ultrasound 10/02/17 00:00 CONCLUSION: Uncomplicated ultrasound-guided paracentesis. Central Venous Line 10/03/17 00:00 CONCLUSION: 1. Uncomplicated line placement as above. Head CT 10/07/17 00:00 CONCLUSION: 1. Senescent changes with mild to moderate periventricular ischemic white matter demyelination. 2. No acute intracranial abnormality. Paracentesis Ultrasound 10/08/17 00:00 CONCLUSION: 1. Uncomplicated large volume ultrasound guided paracentesis. Paracentesis Ultrasound 10/13/17 00:00 CONCLUSION: 1. Successful ultrasound-guided paracentesis as described above. - Procedures Sono-guided paracentesis Vascath Assessment and Plan - Assessment (1) Ascites Code(s): R18.8 - Other ascites Status: Chronic (2) Acute kidney injury Code(s): N17.9 - Acute kidney failure, unspecified Status: Chronic (3) Cellulitis Code(s): L03.90 - Cellulitis, unspecified Status: Acute (4) Lower extremity deep venous thrombosis Code(s): I82.409 - Acute embolism and thrombosis of unspecified deep veins of unspecified lower extremity Status: Chronic (5) Abnormal coagulation profile Code(s): R79.1 - Abnormal coagulation profile Status: Chronic (6) Nonalcoholic steatohepatitis (BOYKIN) Code(s): K75.81 - Nonalcoholic steatohepatitis (BOYKIN) Status: Chronic (7) Encephalopathy Code(s): G93.40 - Encephalopathy, unspecified Status: Chronic - Plan 82-year-old male with cirrhosis, hepatorenal syndrome, renal failure requiring dialysis. Palliative care is following. His overall condition has improved. Acute renal failure with hyperkalemia and acidosis. MARIAMA possibly prerenal vs ATN from infection/hypotension/ and GI losses. renal ultrasound shows no obstruction Patient had dialysis last on 10/04. Hemodialysis currently on hold. Renal function improving. Urinary output is better. Nephrology following, has Vas-Cath Continue to follow BMP. Shock during this hospitalization-likely hypovolemic shock. Resolved possibly secondary to fluid shift after dialysis, resolved. Cirrhosis/ascites Status post paracentesis 1 month ago Ultrasound guided paracentesis 6 L removed repeat paracentesis on 10/08 Status post paracentesis today October 13--had 5 L taken off Bilateral lower extremity cellulitis Likely secondary to edema Improved. Patient completed treatment with ertapenem and daptomycin under the guidance of infectious disease. 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 Per hematology, it looks chronic does not recommend anticoagulation at this time and repeat ultrasound in 4-6 months Transfer to medical floor. Will need home health Continue IV diuretics. Had paracentesis today 5 L taken off October 13. Possible discharge in the next - Code Status: DNR Discussed Condition With: RN AND PT AND FAMILY AND CM Discharge Planning: DC TO HOME WITH [facility]
--- NOTE | 2017-10-14 12:58 | P.DS ---
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 The patient reports that for the past 1-2 weeks his legs have become increasingly swollen and red. He states his PCP prescribed Lasix for him initially and that he was seen by machine pie maker yesterday who prescribed Bumex and metolazone. The patient has yet to start his Bumex and metolazone. He also reports abdominal distention and pressure. The patient was diagnosed with cirrhosis approximately 1 month ago and had a paracentesis at that time. He was treated for his bilateral lower extremity cellulitis with doxycycline however no improvement in his symptoms has occurred despite compliance with medication. The patient is an extremely poor historian. He denies any shortness of breath or chest pain. Positive abdominal pressure. No nausea/vomiting/diarrhea. No fever/chills. No lateralizing signs/symptoms. DS: Diagnosis - Discharge Diagnosis (1) Ascites Status: Chronic (2) Acute kidney injury Status: Chronic (3) Cellulitis Status: Acute (4) Lower extremity deep venous thrombosis Status: Chronic (5) Abnormal coagulation profile Status: Chronic (6) Nonalcoholic steatohepatitis (BOYKIN) Status: Chronic (7) Encephalopathy Status: Chronic DS: Medications - Discharge Medications Prescriptions: acidophilus-sporogenes [Acidophilus Ex Str (L. 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 The patient reports that for the past 1-2 weeks his legs have become increasingly swollen and red. He states his PCP prescribed Lasix for him initially and that he was seen by machine pie maker yesterday who prescribed Bumex and metolazone. The patient has yet to start his Bumex and metolazone. He also reports abdominal distention and pressure. The patient was diagnosed with cirrhosis approximately 1 month ago and had a paracentesis at that time. He was treated for his bilateral lower extremity cellulitis with doxycycline however no improvement in his symptoms has occurred despite compliance with medication. The patient is an extremely poor historian. He denies any shortness of breath or chest pain. Positive abdominal pressure. No nausea/vomiting/diarrhea. No fever/chills. No lateralizing signs/symptoms. Patient had multiple paracentesis is see report Had hemodialysis seen by nephrology Seen by infectious disease medications have been completed before the antibiotic completed treatment for E. coli ESBL positive Was seen by critical care part of the time Was seen by palliative care also Seen by nephrology As well as infectious disease 82-year-old male with cirrhosis, hepatorenal syndrome, renal failure requiring dialysis. Palliative care is following. His overall condition has improved. Acute renal failure with hyperkalemia and acidosis. MARIAMA possibly prerenal vs ATN from infection/hypotension/ and GI losses. renal ultrasound shows no obstruction Patient had dialysis last on 10/04. Hemodialysis currently on hold. Renal function improving. Urinary output is better. Nephrology following, has Vas-Cath Continue to follow BMP. Shock during this hospitalization-likely hypovolemic shock. Resolved possibly secondary to fluid shift after dialysis, resolved. Cirrhosis/ascites Status post paracentesis 1 month ago Ultrasound guided paracentesis 6 L removed repeat paracentesis on 10/08 Status post paracentesis today October 13--had 5 L taken off Bilateral lower extremity cellulitis Likely secondary to edema Improved. Patient completed treatment with ertapenem and daptomycin under the guidance of infectious disease. 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 Per hematology, it looks chronic does not recommend anticoagulation at this time and repeat ultrasound in 4-6 months Transfer to medical floor. Will need home health Patient can be discharged today to follow-up with primary care and with renal - Time Spent with Patient Total time spent providing and/or coordinating discharge services: Greater than 30 minutes - Quality: VTE Deep Vein Thrombosis/Pulmonary Embolism Present on Admission: Yes Exam Vital signs: Vital Signs 10/13/17 13:10 10/13/17 17:42 10/13/17 20:00 Temperature 97.6 F 97.8 F 97.7 F Pulse Rate 82 82 85 Respiratory Rate 16 16 18 Blood Pressure 101/82 91/44 L 112/54 L Pulse Oximetry 98 98 95 10/14/17 00:00 10/14/17 04:00 10/14/17 08:00 Temperature 97.4 F L 97.5 F L 97.4 F L Pulse Rate 87 93 H 80 Respiratory Rate 18 18 16 Blood Pressure 109/53 L 91/52 L 100/55 L Pulse Oximetry 95 95 98 Intake & Output 10/13/17 10/14/17 10/14/17 18:59 06:59 18:59 Intake Total 850 / 850 240 / 240 Balance 850 / 850 240 / 240 Weight 74.6 kg Intake: Oral 850 / 850 240 / 240 Other: # Voids 3 2 Date of Last Bowel Movement 10/13/17 10/13/17 Narrative: GENERAL: Awake alert and oriented 3 talkative and cooperative SKIN: Warm and dry. HEAD: Atraumatic. Normocephalic. EYES: Pupils equal and round. No scleral icterus. No injection or drainage. ENT: No nasal bleeding or discharge. Mucous membranes pink and moist. NECK: Trachea midline. No JVD. CARDIOVASCULAR: Regular rate and rhythm. S1-S2 no S3 or S4 RESPIRATORY: No accessory muscle use. Clear to auscultation. Breath sounds equal bilaterally. GASTROINTESTINAL: Abdomen soft, non-tender, distended. MUSCULOSKELETAL: Extremities without clubbing, cyanosis, or edema. No obvious deformities. NEUROLOGICAL: Awake and alert. No obvious cranial nerve deficits. Motor grossly within normal limits. PSYCHIATRIC: Appropriate mood and affect; insight and judgment normal. Results Procedures completed during hospitalization: Sono-guided paracentesis Vascat Completed studies during hospitalization: Laboratory Results WBC 6.6 th/mm3 (4.0-11.0) 10/14/17 04:45 RBC 3.01 mil/mm3 (4.50-5.90) L 10/14/17 04:45 Hgb 10.1 gm/dL (13.0-17.0) L 10/14/17 04:45 POC Hgb (Calc) 10.2 g/dL (13.0-17.0) L 10/07/17 14:40 Hct 28.4 % (39.0-51.0) L 10/14/17 04:45 POC Hct 30.0 % (39-51.0) L 10/07/17 14:40 MCV 94.3 fL (80.0-100.0) 10/14/17 04:45 MCH 33.7 pg (27.0-34.0) 10/14/17 04:45 MCHC 35.7 % (32.0-36.0) 10/14/17 04:45 RDW 18.3 % (11.6-17.2) H 10/14/17 04:45 Plt Count 79 th/mm3 (150-450) L 10/14/17 04:45 MPV 7.6 fL (7.0-11.0) 10/14/17 04:45 Prelim Diff (Auto) Slide review pending 10/14/17 04:45 Neut % (Auto) 59.9 % (16.0-70.0) 10/14/17 04:45 Lymph % (Auto) 23.7 % (9.0-44.0) 10/14/17 04:45 [place] % (Auto) 12.7 % (0.0-8.0) H 10/14/17 04:45 Eos % (Auto) 2.8 % (0.0-4.0) 10/14/17 04:45 Baso % (Auto) 0.9 % (0.0-2.0) 10/14/17 04:45 Neut # (Auto) 4.0 th/mm3 (1.8-7.7) 10/14/17 04:45 Lymph # (Auto) 1.6 th/mm3 (1.0-4.8) 10/14/17 04:45 [place] # (Auto) 0.8 th/mm3 (0.0-0.9) 10/14/17 04:45 Eos # (Auto) 0.2 th/mm3 (0.0-0.4) 10/14/17 04:45 Baso # (Auto) 0.1 th/mm3 (0.0-0.2) 10/14/17 04:45 WBC Differential . 10/14/17 04:45 Diff Scan Auto diff confirmed 10/14/17 04:45 Differential Comment . 10/14/17 04:45 Platelet Estimate Low (Normal) L 10/14/17 04:45 Platelet Morphology Normal (Normal) 10/14/17 04:45 PT 18.1 sec (9.8-11.6) H 10/14/17 04:45 INR 1.8 Ratio 10/14/17 04:45 APTT 31.9 sec (24.3-30.1) H 10/01/17 17:46 POC Sodium 140 mmol/L (137-144) 10/07/17 14:40 Sodium 138 meq/L (136-145) 10/14/17 04:45 POC Potassium 3.4 mmol/L (3.6-5.0) L 10/07/17 14:40 Potassium 4.2 meq/L (3.5-5.1) 10/14/17 04:45 POC Chloride 101 mmol/L (102-111) L 10/07/17 14:40 Chloride 105 meq/L (98-107) 10/14/17 04:45 Carbon Dioxide 26.1 meq/L (21.0-32.0) 10/14/17 04:45 Anion Gap 7 meq/L (5-15) 10/14/17 04:45 POC BUN 50 mg/dL (5-21) H 10/07/17 14:40 BUN 56 mg/dL (7-18) H 10/14/17 04:45 Creatinine 2.68 mg/dL (0.60-1.30) H 10/14/17 04:45 POC Creatinine 3.7 mg/dL (0.6-1.3) H 10/07/17 14:40 Estimated GFR 23 mL/min (>89) L 10/14/17 04:45 POC Glucose 174 mg/dL (68-110) H 10/07/17 14:40 Random Glucose 96 mg/dL (74-106) 10/14/17 04:45 Calcium 8.2 mg/dL (8.5-10.1) L 10/14/17 04:45 Phosphorus 3.5 mg/dL (2.5-4.9) 10/14/17 04:45 Magnesium 2.0 mg/dL (1.5-2.5) 10/14/17 04:45 Total Bilirubin 2.8 mg/dL (0.2-1.0) H 10/14/17 04:45 AST 71 U/L (15-37) H 10/14/17 04:45 ALT 58 U/L (12-78) 10/14/17 04:45 Alkaline Phosphatase 119 U/L (45-117) H 10/14/17 04:45 Ammonia 14 mcmol/L (11-32) 10/06/17 15:33 Lactate Dehydrogenase 417 U/L (87-241) H 10/02/17 06:21 Troponin I 0.03 ng/mL (0.02-0.05) 10/07/17 14:40 Total Protein 5.4 g/dL (6.4-8.2) L 10/14/17 04:45 Albumin 2.5 g/dL (3.4-5.0) L 10/14/17 04:45 Urine Color Yellow (Yellw/Straw) 10/02/17 18:17 Urine Clarity Cloudy (Clear) H 10/02/17 18:17 Urine pH 5.0 (5.0-8.5) 10/02/17 18:17 Ur Specific [place] 1.011 (1.002-1.035) 10/02/17 18:17 Urine Protein Negative mg/dL (Neg-Trace) 10/02/17 18:17 Urine Glucose (UA) Negative mg/dL (Negative) 10/02/17 18:17 Urine Ketones Negative mg/dL (Negative) 10/02/17 18:17 Urine Occult Blood Moderate (Negative) H 10/02/17 18:17 Urine Nitrate Negative (Negative) 10/02/17 18:17 Urine Bilirubin Negative (Negative) 10/02/17 18:17 Urine Urobilinogen Less than 2 mg/dL (Less than 2) 10/02/17 18:17 Ur Leukocyte Esterase Small (Negative) H 10/02/17 18:17 Urine RBC 29 /hpf (0-3) H 10/02/17 18:17 Urine WBC 9 /hpf (0-5) H 10/02/17 18:17 Ur Squamous Epith Cells 3 /hpf (0-5) 10/02/17 18:17 Amorphous Sediment Rare /hpf (None) H 10/02/17 18:17 Urine Bacteria Moderate /hpf (None) H 10/02/17 18:17 Hyaline Casts 55 /lpf (0-3) 10/02/17 18:17 Micro UA Comment Culture indicated 10/02/17 18:17 Urine Culture Comments Culture indicated 10/02/17 18:17 Urine Osmolality 343 mosm/kg (300-1300) 10/02/17 18:17 Ur Random Creatinine 95 mg/dL (27-300) 10/02/17 18:17 Ur Random Sodium 58 meq/L 10/02/17 18:17 Body Fluid Amylase Source Peritoneal 10/02/17 09:43 Fluid Amylase 18 U/L 10/02/17 09:43 Peritoneal RBC 1340 /mm3 (0-0) H 10/02/17 09:43 Periton Nuc Cells 175 /mm3 (0-10) H 10/02/17 09:43 Periton Neutrophils 14 % 10/02/17 09:43 Periton Lymphocytes 15 % 10/02/17 09:43 Peritoneal Monocytes 31 % 10/02/17 09:43 Periton Mesothelial 16 % 10/02/17 09:43 Periton Histiocytes 24 % 10/02/17 09:43 Peritoneal Fld Comment 10/02/17 09:43 Peritoneal Tot Protein 1.5 gm/dL 10/02/17 09:43 Peritoneal Albumin 0.7 g/dL 10/02/17 09:43 Peritoneal LDH 94 U/L 10/02/17 09:43 Peritoneal Glucose 77 mg/dL 10/02/17 09:43 Peritoneal Amylase Cancelled 10/02/17 09:43 Hepatitis A IgM Ab Nonreactive (Nonreactive) 10/03/17 17:43 Hep Bs Antigen Nonreactive (Nonreactive) 10/03/17 17:43 Hep B Core IgM Ab Nonreactive (Nonreactive) 10/03/17 17:43 Hep C IgG Ab Nonreactive (Nonreactive) 10/03/17 17:43 Blood Type A Positive 10/03/17 11:16 Blood Bank Comment 10/03/17 11:16 Impressions Venous Doppler Study 10/01/17 15:34 CONCLUSION: 1. Nonocclusive thrombus. Renal vein on the right below the knee. 2. Popliteal cyst on the right. 3. Generalized edema. Abdomen/Bladder Ultrasound 10/02/17 00:00 CONCLUSION: 1. Bilateral echogenic kidneys concerning for medical renal disease. The kidneys are normal in size. 2. Right renal cysts. 3. Ascites. Central Venous Line 10/03/17 00:00 CONCLUSION: 1. Uncomplicated line placement as above. Head CT 10/07/17 00:00 CONCLUSION: 1. Senescent changes with mild to moderate periventricular ischemic white matter demyelination. 2. No acute intracranial abnormality. Paracentesis Ultrasound 10/13/17 00:00 CONCLUSION: 1. Successful ultrasound-guided paracentesis as described above. Labs on day of discharge: Labs from last 24 hours 10/14/17 10/14/17 10/14/17 04:45 04:45 04:45 WBC 6.6 RBC 3.01 L Hgb 10.1 L Hct 28.4 L MCV 94.3 MCH 33.7 MCHC 35.7 RDW 18.3 H Plt Count 79 L MPV 7.6 Prelim Diff (Auto) Slide review pending Neut % (Auto) 59.9 Lymph % (Auto) 23.7 [place] % (Auto) 12.7 H Eos % (Auto) 2.8 Baso % (Auto) 0.9 Neut # (Auto) 4.0 Lymph # (Auto) 1.6 [place] # (Auto) 0.8 Eos # (Auto) 0.2 Baso # (Auto) 0.1 WBC Differential . Diff Scan Auto diff confirmed Differential Comment . Platelet Estimate Low L Platelet Morphology Normal PT 18.1 H INR 1.8 Sodium 138 Potassium 4.2 Chloride 105 Carbon Dioxide 26.1 Anion Gap 7 BUN 56 H Creatinine 2.68 H Estimated GFR 23 L Random Glucose 96 Calcium 8.2 L Phosphorus 3.5 Magnesium 2.0 Total Bilirubin 2.8 H AST 71 H ALT 58 Alkaline Phosphatase 119 H Total Protein 5.4 L Albumin 2.5 L - Impressions ITS Impressions Venous Doppler Study 10/01/17 15:34 CONCLUSION: 1. Nonocclusive thrombus. Renal vein on the right below the knee. 2. Popliteal cyst on the right. 3. Generalized edema. Abdomen/Bladder Ultrasound 10/02/17 00:00 CONCLUSION: 1. Bilateral echogenic kidneys concerning for medical renal disease. The kidneys are normal in size. 2. Right renal cysts. 3. Ascites. Central Venous Line 10/03/17 00:00 CONCLUSION: 1. Uncomplicated line placement as above. Head CT 10/07/17 00:00 CONCLUSION: 1. Senescent changes with mild to moderate periventricular ischemic white matter demyelination. 2. No acute intracranial abnormality. Paracentesis Ultrasound 10/13/17 00:00 CONCLUSION: 1. Successful ultrasound-guided paracentesis as described above. Discharge Plan - Discharge Disposition Patient Disposition: /Home Health Service - Discharge Condition Condition: Good - Discharge Order Discharge Orders: Discharge Order (Routine); Ordered 10/14/17 Ordered By: Jesus Greco - Discharge Details Anticipated Discharge Date: 10/14/17 Discharge Comment: DC TO HOME WITH [facility] - Physicians Team Primary Care Provider: NON STAFF,PROVIDER Attending Provider: Jesus Greco Other Providers: any Gibson,Kendall Sandoval MD ; Artem Lee MD ; Quirino Win ; Michael Heath MD ; Cliff Rutledge MD
--- NOTE | 2017-10-14 16:45 | P.PNNP ---
Subjective Interval history: Patient is alert, no SOB, feeling better, seen an hour ago, ready to go home. Physical Exam Vital signs: Vital Signs 10/13/17 17:42 10/13/17 20:00 10/14/17 00:00 Temperature 97.8 F 97.7 F 97.4 F L Pulse Rate 82 85 87 Respiratory Rate 16 18 18 Blood Pressure 91/44 L 112/54 L 109/53 L Pulse Oximetry 98 95 95 10/14/17 04:00 10/14/17 08:00 Temperature 97.5 F L 97.4 F L Pulse Rate 93 H 80 Respiratory Rate 18 16 Blood Pressure 91/52 L 100/55 L Pulse Oximetry 95 98 Intake & Output 10/13/17 10/14/17 10/14/17 18:59 06:59 18:59 Intake Total 850 / 850 240 / 240 Balance 850 / 850 240 / 240 Weight 74.6 kg Intake: Oral 850 / 850 240 / 240 Other: # Voids 3 2 Date of Last Bowel Movement 10/13/17 10/13/17 Narrative: GENERAL: Awake alert and oriented 3 talkative and cooperative SKIN: Warm and dry. HEAD: Atraumatic. Normocephalic. EYES: Pupils equal and round. No scleral icterus. No injection or drainage. ENT: No nasal bleeding or discharge. Mucous membranes pink and moist. NECK: Trachea midline. No JVD. CARDIOVASCULAR: Regular rate and rhythm. S1-S2 no S3 or S4 RESPIRATORY: No accessory muscle use. Clear to auscultation. Breath sounds equal bilaterally. GASTROINTESTINAL: Abdomen soft, non-tender, distended. MUSCULOSKELETAL: Extremities without clubbing, cyanosis, or edema. No obvious deformities. NEUROLOGICAL: Awake and alert. No obvious cranial nerve deficits. Motor grossly within normal limits. PSYCHIATRIC: Appropriate mood and affect; insight and judgment normal. Assessment and Plan - Assessment (1) Acute kidney injury Code(s): N17.9 - Acute kidney failure, unspecified Status: Chronic Plan: Creatinine remained stable at 2.6 and nonoliguric, patient did not have dialysis since 10/04/2017 Has Chronic kidney disease and develop MARIAMA. Hold HD for now, Vascath was removed. Creatinine is same, 2.6 For D/C, to follow with Dr. Gibson. (2) Ascites Code(s): R18.8 - Other ascites Status: Chronic Plan: Post repeat Paracentesis on 10/13. (3) Lower extremity deep venous thrombosis Code(s): I82.409 - Acute embolism and thrombosis of unspecified deep veins of unspecified lower extremity Status: Chronic (4) Nonalcoholic steatohepatitis (BOYKIN) Code(s): K75.81 - Nonalcoholic steatohepatitis (BOYKIN) Status: Chronic
== END 2017-10-14 16:15 | disposition home health service (06) ==
LOC: NEPC 11:52 → NEDA 19:20 → NEDH 23:21 → NEDA 10-02 12:09 → N07 10-02 18:30 → HIMC 10-07 14:52 → N04 10-12 12:50
PROVIDERS: ADMIT Hospitalist; ATTEND Hospitalist